=== PATIENT | female | born 1935 | race African-American/Black ===

== ENCOUNTER 2019-06-19 13:49 | Outpatient (CLI) | payer OTHER, SELFPAY ==
--- NOTE | 2019-06-19 | ECHO_ITS ---
Patient Info Name: Rosario Love Age: 83 years : 1935 Gender: Female Ht: 63 in Wt: 176 lbs BSA: 1.91 m2 HR: 63 bpm BP: 135 / 87 mmHg Heart Rhythm: Sinus Rhythm Technical Quality: Good Exam Date: 06/19/2019 2:22 PM Exam Location: [facility] Patient Status: Outpatient Admit Date: 06/19/2019 Staff Ordering Physician: Dominic Padilla MD Potato Sorter: Eric Jean RDCS, RT Attending Provider: Dominic Padilla MD Referring Physician: Randy ESQUIVEL; Exam Type: CA echo doppler color flow Study Info Indications R01.1 - Cardiac murmur, unspecified Complete two-dimensional, color flow and Doppler transthoracic echocardiogram is performed. Summary 1. Left ventricular systolic function is normal, estimated at 65-70%. 2. There is no increased left ventricular wall thickness. 3. The left ventricular diastolic function is grade I diastolic dysfunction. 4. Global longitudinal strain is normal at -19 %. 5. There is no aortic valve stenosis. 6. There is no aortic valve regurgitation. 7. There is trace mitral valve regurgitation. 8. The mitral valve annulus is mildly calcified. 9. There is trace tricuspid valve regurgitation. 10. Unable to estimate PA systolic pressure due to poor spectral resolution of tricuspid regurgitant jet velocity. 11. There is mild-moderate aortic atherosclerosis. Left Ventricle Left ventricular chamber dimension is normal. Left ventricular systolic function is normal, estimated at 65-70%. There is no increased left ventricular wall thickness. The left ventricular diastolic function is grade I diastolic dysfunction. Global longitudinal strain is normal at -19 %. Right Ventricle Right ventricular chamber dimension is normal. Right ventricular systolic function is normal. Left Atria Left atrial chamber dimension is normal. Right Atria Right atrial chamber dimension is normal. Aortic Valve The aortic valve is trileaflet. There is mild aortic valve sclerosis. There is no aortic valve stenosis. There is no aortic valve regurgitation. Pulmonic Valve The pulmonic valve is normal. There is no pulmonic regurgitation. Mitral Valve The mitral valve has normal leaflets. There is trace mitral valve regurgitation. The mitral valve annulus is mildly calcified. Tricuspid Valve The tricuspid valve leaflets are normal. There is trace tricuspid valve regurgitation. Unable to estimate PA systolic pressure due to poor spectral resolution of tricuspid regurgitant jet velocity. Pericardium/Pleural The pericardium appears normal. There is no pericardial effusion. Inferior Vena Cava Normal inferior vena cava with >50% collapse upon inspiration consistent with normal right atrial pressure, 5 mmHg. Aorta The aortic root size at the sinus of Valsalva is normal. There is mild-moderate aortic atherosclerosis. Left Ventricular Outflow Tract Name Value Normal LVOT 2D LVOT Diameter 1.9 cm LVOT Doppler LVOT Peak Gradient 5 mmHg LVOT Mean Gradient 3 mmHg LVOT VTI 27 cm
== END 2019-06-19 13:50 | disposition home or self-care (01) ==
LOC: ANHCARD 13:54
PROVIDERS: PCP Emergency Medicine; Visit Provider Emergency Medicine
DX: R01.1 Cardiac murmur, unspecified (principal); I70.0 Atherosclerosis of aorta
CPT/HCPCS: 93306

== ENCOUNTER 2021-10-06 16:53 | Inpatient (IN) | payer MEDICARE, OTHER, SELFPAY ==
[2021-10-06] VITALS (9 sets, daily range): BP systolic 148–172; BP diastolic 77–80; PULSE 81; RESP 16; TEMP 37.1; O2SAT 97–100
--- NOTE | ~2021-10-06 | XR_ITS ---
EXAM: XR abdomen obstructive series DATE: 10/09/2021 07:57 HISTORY: F/u on p SBO ( . COMPARISON: Upper GI 10/08/2021, x-ray abdomen 10/08/2021, CT abdomen and pelvis 10/06/2021. FINDINGS: Senescent changes in the lungs. Elevation of the left hemidiaphragm. Hiatal hernia. Retain ed contrast within the colon. Single loop of dilated, air-filled small bowel. Relative paucity of sma ll bowel gas. Faint residual contrast within a few mildly dilated small bowel loops. IMPRESSION: Limited evaluation of the small bowel, with some residual dilation present that may refle ct ileus or obstruction. Reviewed, dictated and finalized at location K. IMPRESSION: Limited evaluation of the small bowel, with some residual dilation present that may reflect ileus or obstruction.
--- NOTE | ~2021-10-06 | XR_ITS ---
EXAMINATION: XR UGI water soluble w sbs DATE: 10/08/2021 15:00 INDICATION: Small bowel obstruction. Hiatal hernia. TECHNIQUE: The patient drank water-soluble contrast. Fluoroscopy of the esophagus, stomach, and small bowel was performed. Fluoroscopy exposure time was 0.3 minutes. Radiographs of the abdomen were obta ined. The total number of images was 233. COMPARISON: CT abdomen and pelvis 10/06/2021 FINDINGS: UPPER GASTROINTESTINAL SERIES: There is decreased primary and secondary esophageal peristalsis. There is a large sliding hiatal rex ia. SMALL BOWEL SERIES: There are multiple dilated loops of small bowel. Transit time to the colon was 4 hours. The colon is decompressed. IMPRESSION: 1. Large sliding hiatal hernia. 2. Moderate esophageal dysmotility. 3. Partial small bowel obstruction. Reviewed, dictated and finalized at location A.
--- NOTE | ~2021-10-06 | XR_ITS ---
XR abdomen/kub 1V 10/08/2021 06:04 Indication: Small bowel obstruction Procedure: KUB Comparison: 10/07 and 10/06/2021 Findings: Large hiatal hernia. Nonspecific bowel gas pattern. No focal dilated small bowel identified , possibly fluid-filled. There is gas in the colon. Advanced degenerative changes of the lumbar spine and hips. No acute osseous abnormality. Impression: 1: Nonspecific bowel gas pattern. 2: Large hiatal hernia. Reviewed, dictated and finalized at location A. Impression: 1: Nonspecific bowel gas pattern. 2: Large hiatal hernia.
--- NOTE | ~2021-10-06 | XR_ITS ---
EXAMINATION: XR abdomen obstructive series DATE: 10/07/2021 14:41 INDICATION: Small bowel obstruction TECHNIQUE: Upright and supine views of the abdomen were obtained. COMPARISON: 10/06/2021 FINDINGS: There is a massive hiatal hernia. The nasogastric tube has been removed. The mid abdomen is relatively gasless. Dilated small bowel loops on yesterday's CT were fluid-filled and contained very little gas. 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 The visualized lung ba ses are clear. IMPRESSION: 1. Relatively gasless mid abdomen which could reflect persistent small bowel obstruction given the ap pearance of the dilated bowel loops on the comparison CT. Reviewed, dictated and finalized at location F. IMPRESSION: 1. Relatively gasless mid abdomen which could reflect persistent small bowel ob struction given the appearance of the dilated bowel loops on the comparison CT.
--- NOTE | ~2021-10-06 | XR_ITS ---
XR fl guid NG/feed tube insert 10/07/2021 15:36 Indication: Attempted NG tube placement Procedure: Single fluoroscopic image Comparison: KUB dated 10/06/2021. Findings: Multiple attempts to place NG tube were made without success. Patient is extremely combativ e and refused examination. Impression: 1: Unsuccessful attempts to place NG tube. Patient very combative. Reviewed, dictated and finalized at location A. Impression: 1: Unsuccessful attempts to place NG tube. Patient very combative.
--- NOTE | ~2021-10-06 | CT_ITS ---
EXAMINATION: CT abdomen pelvis wo con DATE: 10/06/2021 20:46 INDICATION: Left upper quadrant pain TECHNIQUE: Computed tomography (CT) of the abdomen and pelvis was performed without intravenous contr ast. The dose-length product (DLP) was 521.46 mGy-cm. Automated exposure control and iterative recons truction technique were employed. COMPARISON: None FINDINGS: There is a massive hiatal hernia containing the stomach and portions of the collapsed trans verse colon. There is passive atelectasis in the visualized left lower lobe. There are multiple dilat ed, fluid-filled loops of small bowel with an apparent abrupt transition point in the midline at the pelvic inlet beyond which the small bowel and large bowel are decompressed. No free intraperitoneal g as is identified. There is a small volume of ascites. A small volume of ascites is also seen in an um bilical hernia. The liver, spleen, pancreas, adrenal glands, and kidneys are normal. The gallbladder is not definitely identified, abscess versus decompressed. No pathologically enlarged abdominal or pe lvic lymph nodes are identified. There is calcified atherosclerosis of the aorta and many of the othe r arteries. There is moderate lower thoracic and lumbar spondylosis. IMPRESSION: 1. Small bowel obstruction with apparent transition point in the midline at the pelvic inlet. Surgica l evaluation is recommended. 2. Massive hiatal hernia containing the stomach and portions of the transverse colon. Reviewed, dictated and finalized at location F. IMPRESSION: 1. Small bowel obstruction with apparent transition point in the midline at the pelvic inlet. Surgical evaluation is recommended. 2. Massive hiatal hernia containing the stomach and portions of the transverse colon.
--- NOTE | ~2021-10-06 | XR_ITS ---
EXAMINATION: XR abdomen NG/feed tube insert INDICATION: Nasogastric tube placement TECHNIQUE: Portable AP KUB-NG at 2255 hours COMPARISON: CT from today FINDINGS: There is a massive hiatal hernia. The tip of the nasogastric tube is seen near the gastroes ophageal junction. The proximal side port is approximately 7 cm above the gastroesophageal junction. The visualized lung bases are clear. IMPRESSION: 1. Massive hiatal hernia with nasogastric tube tip ending at the gastroesophageal junction. Recommend advancing 8 cm. Reviewed, dictated and finalized at location F. IMPRESSION: 1. Massive hiatal hernia with nasogastric tube tip ending at the gastroesophage al junction. Recommend advancing 8 cm.
[2021-10-06 20:18] LABS: Basophils Percent Auto 0.1 % (0.2-1.2); Hematocrit 39.9 % (37.0-47.0); Hemoglobin 13.5 g/dL (12.0-15.0); Immature Granulocyte Absolute 0.04 K/mm3 (0.00-0.031); Immature Granulocyte Percent A 0.3 % (0-0.5); Lymphocytes Absolute Auto 1.47 K/mm3 (0.9-3.2); Lymphocytes Percent Auto 12.5 % (18.3-44.2); Mean Corpuscular HGB Conc 33.8 g/dl (32-36); Mean Corpuscular Hemoglobin 28.9 pg (26-34); Mean Corpuscular Volume 85.4 fl (80-100); Mean Platelet Volume 8.9 fl (7.4-10.4); Monocytes Absolute Auto 0.8 K/mm3 (0.1-0.6); Monocytes Percent Auto 6.7 % (2.6-8.5); Neutrophils Absolute Auto 9.5 K/mm3 (1.3-6.7); Neutrophils Percent Auto 80.4 % (45.5-73.1); Platelet Count Result 293 k/mm3 (150-375); Red Blood Count 4.67 M/mm3 (4.2-5.4); Red Cell Distribution Width 13.6 % (11.5-14.5); White Blood Count 11.8 K/mm3 (4.5-10.0)
[2021-10-06 20:25] LABS: Alanine Aminotransferase 12 U/L (6-35); Albumin Level 4.5 g/dL (3.5-5.1); Alkaline Phosphatase 63 U/L (38-126); Anion Gap 7 mmol/L (8-16); Aspartate Amino Transferase 36 U/L (14-36); Bilirubin,Total 0.9 mg/dL (0.2-1.3); Blood Urea Nitrogen 27 mg/dL (7-17); Calcium 10.6 mg/dL (8.4-10.2); Carbon Dioxide 30 mmol/L (22-30); Chloride 96 mmol/L (98-107); Estimated CRCL calculation 27 ml/min; Estimated Glomerular Filt Rate 43; Glucose 108 mg/dL (65-110); Lipase 48 U/L (23-300); Potassium 4.3 mmol/L (3.4-5.0); Sodium 133 mmol/L (137-145)
--- NOTE | 2021-10-06 20:42 | ED.ABDPAIN ---
HPI - Abdominal Pain General Chief Complaint: Abdominal Pain Stated Complaint: abdominal pain Time Seen by Provider: 10/06/21 19:56 History of Present Illness HPI narrative: Patient is an 86-year-old female who presents to the ER with abdominal pain. Ongoing for 2 days. Sharp in the left upper quadrant. No radiation. Occasionally radiates into the chest and causes lightheadedness. Patient with mild nausea, had 2 episodes of vomiting yesterday. Daughter believes patient has been constipated for couple days. No diarrhea. Patient unsure if she is passing gas. No history of diverticulitis. She has no urinary frequency urgency or dysuria. Known history of CKD. Related Data Home Medications Medication Instructions Recorded Confirmed Aspirin Childrens 04/06/19 ascorbic acid (vitamin C) 1,000 mg 1 g PO DAILY 04/06/19 tablet (Vitamin C) atorvastatin 20 mg tablet 20 mg PO DAILY 04/06/19 hydrochlorothiazide 25 mg tablet 25 mg PO DAILY 04/06/19 oxybutynin chloride 10 mg 10 mg PO DAILY 04/06/19 tablet,extended release 24 hr potassium chloride 10 mEq 10 meq PO DAILY 04/06/19 tablet,extended release (Klor-Con) Allergies Allergy/AdvReac Type Severity Reaction Status Date / Time No Known Allergies Allergy Verified 03/02/21 11:45 Review of Systems Review of Systems: All systems reviewed & are unremarkable except as noted in HPI and below Constitutional: Constitutional: Denies chills and Denies fever(s) ENT: Denies nasal congestion and Denies sore throat Cardiovascular: Cardiovascular: Reports chest pain, Denies rapid heart rate and Denies radiating jaw, neck or arm pain Respiratory: Respiratory: Denies cough and Denies dyspnea Gastrointestinal: Gastrointestinal: Reports abdominal pain, Denies constipation, Denies diarrhea, Denies nausea and Denies vomiting Genitourinary: Genitourinary: Denies nocturia, Denies dysuria and Denies flank pain PMF Past Medical History Medical History (Updated 10/06/21 @ 23:32 by Rm Lezama MD) High cholesterol HTN (hypertension) Surgical History Surgical History (Updated 10/06/21 @ 23:32 by Rm Lezama MD) H/O section History of knee replacement, total left Social History Social History (Updated 03/02/21 @ 11:46 by Serena Terrell [facility]) Smoking status: Former smoker Alcohol intake: current Substance use: never Gender identity (if verbalized by the patient): Female Exam Narrative: GENERAL: Uncomfortable-appearing, well-nourished, and in no acute distress. HEAD: Normocephalic, atraumatic. EYES: PERRL and EOMI. ENT: Mucous membranes moist. CHEST: Clear to auscultation. No respiratory distress. HEART: Regular rate and rhythm. Normal peripheral pulses. ABDOMEN: Soft, tender palpation left upper quadrant with guarding, mildly distended. EXTREMITIES: Normal range of motion. No edema. SKIN: Warm, dry, no rash. NEURO: Alert and oriented x3. PSYCH: Normal mood and affect. Course Course Emergency Course: Discussed case with Dr. Presley. Recommends NG admit to hospitalist service. Accepted by Dr. Arthur. Vital Signs Vital signs: Vital Signs Temperature 98.7 F 10/06/21 17:38 Pulse Rate 81 10/06/21 17:38 Respiratory Rate 16 10/06/21 17:38 Blood Pressure 172/77 H 10/06/21 17:38 Pulse Oximetry 100 10/06/21 17:38 Oxygen Delivery Room Air 10/06/21 17:38 Temperature 98.7 F 10/06/21 17:38 Pulse Rate 81 10/06/21 17:38 Respiratory Rate 16 10/06/21 17:38 Blood Pressure 172/77 H 10/06/21 17:38 Pulse Oximetry 100 10/06/21 17:38 Oxygen Delivery Room Air 10/06/21 17:38 MDM - Abdominal Pain Lab Data Result diagrams: 10/06/21 20:03 10/06/21 20:03 Labs: Lab Results 10/06/21 10/06/21 10/06/21 Range/Units 20:03 20:03 22:27 WBC 11.8 H (4.5-10.0) K/mm3 RBC 4.67 (4.2-5.4) M/mm3 Hgb 13.5 (12.0-15.0) g/dL Hct 39.9 (37.0-47.0) %
[2021-10-06] MEDS: MORPHINE SULFATE (*CRX) 4 MG/ML INJ IV PUSH (20:51)
[2021-10-06] MEDS: SODIUM CHLORIDE 0.9% IV 1,000 ML 999 ML IV CONT (20:56)
[2021-10-06 23:03] LABS: Appearance Urine Clear (Clear); Bilirubin Urine Negative (Negative); Color Urine Yellow (Yellow); Glucose Urine UA Negative (Negative); Ketones Urine Negative (Negative); Leukocyte Esterase Ur Negative LEU/UL (Negative); Nitrate Urine Negative (Negative); Protein Urine Negative (Negative); Urobilinogen Urine 0.2 mg/dL (<2.0); pH Urine 6.5 (5.0-9.0)
[2021-10-06 23:14] LABS: RBC Urine 0-2 /hpf (0-2); Squamous Epithelial Cell Urine Many /hpf (Few); WBC Urine 0-3 /hpf
[2021-10-06 23:15] LABS: Add Urine Microscopic? YES; Blood Urine Trace (Negative)
[2021-10-06 23:22] LABS: SARS-CoV-2 RNA PCR Negative
[2021-10-07] VITALS (8 sets, daily range): BP systolic 119–162; BP diastolic 60–75; PULSE 81–88; RESP 17–18; TEMP 36.2–37.5; O2SAT 92–100; BMI 26.8
[2021-10-07] MEDS: LORazepam INJ (*CRX) 2 MG/ML VIAL 0.5 MG IV PUSH (00:29)
--- NOTE | 2021-10-07 01:14 | PC.NURSE ---
NG tube inserted then immediately pulled out by patient. NG tube attempts 3 more times by this RN with no success. NG tube attempt 3 other times 1 times by other RN then 2 other times by the compressor house operator.
[2021-10-07] MEDS: SODIUM CHLORIDE 0.9% IV 1,000 ML 125 ML IV CONT ×2 (02:02→10:02)
--- NOTE | 2021-10-07 04:43 | PC.NURSE ---
This patient, Rosario Love, was admitted to 3 Med Surg Room 317-02. Patient/family oriented to hospital policies and general routines including ID bracelet, bed and alarms, visiting hours, pain management, procedures, bathroom and other care routines, personal items, smoking policy, room service/diet, and visiting hours. Information on how to activate the Rapid Response Team has been discussed. Patient/Family are encouraged to report perceived risks to care and to ask questions if they do not understand what they are told or what they should do.
[2021-10-07 08:30] LABS: Eosinophils Percent Auto 0.1 % (0-4.4); Hematocrit 38.2 % (37.0-47.0); Hemoglobin 12.8 g/dL (12.0-15.0); Immature Granulocyte Absolute 0.03 K/mm3 (0.00-0.031); Immature Granulocyte Percent A 0.3 % (0-0.5); Lymphocytes Absolute Auto 1.29 K/mm3 (0.9-3.2); Lymphocytes Percent Auto 13.1 % (18.3-44.2); Mean Corpuscular HGB Conc 33.5 g/dl (32-36); Mean Corpuscular Hemoglobin 28.6 pg (26-34); Mean Corpuscular Volume 85.5 fl (80-100); Monocytes Absolute Auto 1.2 K/mm3 (0.1-0.6); Monocytes Percent Auto 11.6 % (2.6-8.5); Neutrophils Absolute Auto 7.4 K/mm3 (1.3-6.7); Neutrophils Percent Auto 74.9 % (45.5-73.1); Platelet Count Result 259 k/mm3 (150-375); Red Blood Count 4.47 M/mm3 (4.2-5.4); Red Cell Distribution Width 13.6 % (11.5-14.5); White Blood Count 9.9 K/mm3 (4.5-10.0)
[2021-10-07 08:46] LABS: Alanine Aminotransferase 12 U/L (6-35); Albumin Level 3.6 g/dL (3.5-5.1); Alkaline Phosphatase 39 U/L (38-126); Anion Gap 7 mmol/L (8-16); Aspartate Amino Transferase 37 U/L (14-36); Bilirubin,Total 1.1 mg/dL (0.2-1.3); Blood Urea Nitrogen 28 mg/dL (7-17); Calcium 9.2 mg/dL (8.4-10.2); Carbon Dioxide 30 mmol/L (22-30); Chloride 97 mmol/L (98-107); Estimated CRCL calculation 26 ml/min; Estimated Glomerular Filt Rate 52; Glucose 89 mg/dL (65-110); Lipase 57 U/L (23-300); Potassium 4.2 mmol/L (3.4-5.0); Sodium 134 mmol/L (137-145)
--- NOTE | 2021-10-07 08:58 | PM.IMHP ---
H&P: HPI History of Present Illness Date/Time: 10/07/21 08:58 Chief Complaint: abdominal pain Narrative: Pt is an 86 yo female w/ hx of HTN and HLD who presented to the ED last night for evaluation of abdominal pain x 2 days. Pt c/o intermittent sharp LUQ abdominal pain x 2 days with associated nausea, vomiting w/ 2 episodes of emesis, and constipation for a few days. She does not think she is passing gas either. Reports decreased appetite with little to no PO intake yesterday. No fevers, chills, bodyaches. No urinary symptoms. She does state that she got light headed a couple of times yesterday when the pain got intense. She denies cp/sob. No vision changes, paraesthesias, focal weakness. ER performed CT abd/pelv which showed SBO and massive hiatal hernia. General surgery was consulted and patient was admitted to inpatient service for further evaluation and treatment with expected stay greater than 2 midnights. Review of Systems Review of Systems: General: Denies fevers, chills Eyes: Denies vision changes ENT: Denies nasal congestion or sore throat Respiratory: Denies cough or shortness of breath Cardiovascular: Denies chest pain or lower extremity edema Gastrointestinal: + abdominal pain and vomiting Genitourinary: Denies dysuria Musculoskeletal: Denies back pain Neurological: Denies headache or motor weakness Integumentary: Denies rash PMFSH Past Medical History Medical History (Updated 10/07/21 @ 09:24 by Dolores Munoz PA-C) High cholesterol HTN (hypertension) Surgical History Surgical History H/O section History of knee replacement, total left Social History Social History Smoking status: Former smoker Tobacco type: cigarettes Alcohol intake: never Substance use: never Substance use type: former substance user Gender identity (if verbalized by the patient): Female Spiritual care concerns: No Meds Home Medications and Allergies Home Medications Medication Instructions Recorded Confirmed Type amlodipine 10 mg tablet 10 mg PO DAILY #30 tabs 04/06/19 Rx atorvastatin 20 mg tablet 20 mg PO DAILY 04/06/19 10/07/21 History hydrochlorothiazide 25 mg tablet 25 mg PO DAILY 04/06/19 10/07/21 History oxybutynin chloride 10 mg 10 mg PO DAILY 04/06/19 10/07/21 History tablet,extended release 24 hr potassium chloride 20 mEq 20 tablet PO DAILY 10/07/21 10/07/21 History tablet,extended release(part/cryst) (Leslie Hernandez) Allergies Allergy/AdvReac Type Severity Reaction Status Date / Time No Known Allergies Allergy Verified 03/02/21 11:45 Vital Signs Vital Signs - 24 hr 10/06/21 17:38 10/06/21 21:04 10/06/21 21:15 Temperature 98.7 F Pulse Rate 81 Respiratory Rate 16 Blood Pressure 172/77 H Pulse Oximetry 100 97 99 Oxygen Delivery Room Air 10/06/21 21:30 10/06/21 21:32 10/06/21 21:45 Temperature Pulse Rate Respiratory Rate Blood Pressure 148/79 H Pulse Oximetry 99 99 99 Oxygen Delivery 10/06/21 22:00 10/06/21 22:02 10/06/21 23:32 Temperature Pulse Rate Respiratory Rate Blood Pressure 151/80 H 157/78 H Pulse Oximetry 100 100 Oxygen Delivery 10/07/21 01:17 10/07/21 01:54 10/07/21 01:50 Temperature 98.1 F Pulse Rate 82 82 86 Respiratory Rate 18 18 17 Blood Pressure 162/75 H 148/72 H Pulse Oximetry 98 98 95 Oxygen Delivery 10/07/21 05:38 10/07/21 07:57 Temperature 98.1 F 97.2 F L Pulse Rate 87 84 Respiratory Rate 17 17 Blood Pressure 146/70 H 139/69 Pulse Oximetry 92 100 Oxygen Delivery Exam Narrative: General: No acute distress, non toxic appearing, elderly Eyes: PERRL, no scleral icterus HEENT: NCAT, external ears normal, MMM Respiratory: No respiratory distress, Lungs CTA bilaterally, no wheezing Cardiovascular: RRR, no murmur Abdominal:
--- NOTE | 2021-10-07 09:34 | PCCCNOTE ---
On 10/07/21, the student, [Adrienne Bazan], provided care and completed [facility] documentation on this patient. I have reviewed the student's documentation and agree with the findings.
--- NOTE | 2021-10-07 10:20 | PC.NURSE ---
pt remains confused unable to re-insert Ng tube, pt unable to follow commands and pulls away and resistive to procedure. Informed Md Presley, requesting Ng be placed under fluoroscope.
--- NOTE | 2021-10-07 10:44 | PM.CNGS ---
Assessment and Plan Assessment and plan (1) Small bowel obstruction: Code(s): K56.609 - Unspecified intestinal obstruction, unspecified as to partial versus complete obstruction Status: Acute Assessment and Plan: CT scan reviewed and discussed with the patient. There is evidence of a small bowel obstruction. NG tube placement was attempted and plain films show this was at the GE junction, but she no longer has an NG tube in place. Will order for NG tube placement in Radiology under fluoroscopy. Obstructive series also ordered for today. Will initially treat this with conservative measures with NG tube decompression, IV fluids, bowel rest, and IV analgesics as needed. Continue to monitor with serial abdominal exams and imaging. (2) Large hiatal hernia: Code(s): K44.9 - Diaphragmatic hernia without obstruction or gangrene Status: Acute Assessment and Plan: Large hiatal hernia noted on CT with her stomach and a portion of the colon in the chest. This is not related to the bowel obstruction but does make appropriate placement of the NG more difficult. See plan above. (3) [place] (acute kidney injury): Code(s): N17.9 - Acute kidney failure, unspecified Status: Acute Assessment and Plan: Seems to be improving with IV fluids. Creatinine 1.4 on admission and down to 1.2. Monitor labs and continue IV fluids. (4) HTN (hypertension): Code(s): I10 - Essential (primary) hypertension Status: Acute (5) High cholesterol: Code(s): E78.00 - Pure hypercholesterolemia, unspecified Status: Acute Plan I have discussed the patient's case and plan of care with Dr. Presley. Thank you for allowing us to see the patient in consultation and we will continue to follow along with you. History of Present Illness Consult details Consult date: 10/07/21 Reason for consult: other (Small-bowel obstruction) Requesting physician: Rm Lezama MD Narrative: This is an 86-year-old female with a history of hypertension and hyperlipidemia, who presented to the emergency department with complaints of abdominal pain and vomiting. She is a poor historian and is unable to provide the majority of her history. With her permission, I attempted to call her daughter to confirm history and ask questions, but she did not answer her phone. Therefore, her history is obtained by review of the electronic medical record and also some from the patient of what she was able to answer. She reports noticing left-sided abdominal pain over the last 2 days with associated nausea and vomiting. She had multiple episodes of vomiting at home and apparently felt constipated. She has had little oral intake due to her symptoms over the past few days. She denies ever having a pain like this in the past. She denies any history of a bowel obstruction. She also had lightheadedness prior to admission. Due to the unrelenting pain, she presented to the ER for evaluation. CT scan of the abdomen and pelvis showed a small-bowel obstruction and a massive hiatal hernia with stomach and colon in the chest. She was admitted and made NPO. Our service has been consulted for the small-bowel obstruction. There was an attempt at NG tube placement overnight with plain film showed the tip of the NG at the GE junction. This morning, she was found without an NG in place. It is unclear if she removed the NG tube herself. The patient reports her symptoms have resolved. She denies any nausea or abdominal pain at this time. She has not had any vomiting since admission. She denies flatus and cannot recall her last bowel movement. In her chart, there is mention a previous delivery, but the patient denies having a in the past or any other abdominal surgeries that she knows of. She denies being aware of her hiatal hernia. No other complaints at this time. Review of Systems Review of Systems: All systems reviewed &
--- NOTE | 2021-10-07 12:42 | PC.NURSE ---
Eli Rosales RN called for IV restart
--- NOTE | 2021-10-07 13:21 | PC.NURSE ---
Daughter states pt has hx of mitral valve prolapse.
--- NOTE | 2021-10-07 13:25 | PC.NURSE ---
This nurse explain pt current status, daughter requesting to talk with Lolis Martinez about pt condition. Called Lolis Martinez's general surgery office, awaiting call back, informed Frances Munoz that daughter is requesting to talk to someone about pt condition. Frances will try and stop by later this afternoon.
--- NOTE | 2021-10-07 16:55 | PC.NURSE ---
Admitted to place NG under fluroscopy, pt refusing resistive to procedure, shaking and jerking head around from tube, pulling tube away with hands, yelling and screaming for procedure to stop. Unable to place NG. GI consults MD Herrera to admit NG placement tomorrow.
[2021-10-07] MEDS: SODIUM CHLORIDE 0.9% IV 1,000 ML 80 ML IV CONT (18:20)
[2021-10-08 06:00] VITALS: BP 107/50; PULSE 74; RESP 18; TEMP 37.2; O2SAT 99
[2021-10-08 06:49] LABS: Albumin Level 2.7 g/dL (3.5-5.1); Alkaline Phosphatase 33 U/L (38-126); Anion Gap 4 mmol/L (8-16); Aspartate Amino Transferase 26 U/L (14-36); Bilirubin,Total 0.8 mg/dL (0.2-1.3); Blood Urea Nitrogen 25 mg/dL (7-17); Calcium 8.4 mg/dL (8.4-10.2); Carbon Dioxide 20 mmol/L (22-30); Chloride 108 mmol/L (98-107); Estimated CRCL calculation 26 ml/min; Estimated Glomerular Filt Rate 52; Glucose 71 mg/dL (65-110); Potassium 3.5 mmol/L (3.4-5.0); Sodium 132 mmol/L (137-145)
[2021-10-08 07:09] LABS: Alanine Aminotransferase < 6 U/L (6-35)
[2021-10-08 07:55] LABS: Basophils Percent Auto 0.1 % (0.2-1.2); Eosinophils Percent Auto 0.6 % (0-4.4); Hematocrit 31.4 % (37.0-47.0); Hemoglobin 10.3 g/dL (12.0-15.0); Immature Granulocyte Absolute 0.02 K/mm3 (0.00-0.031); Immature Granulocyte Percent A 0.3 % (0-0.5); Lymphocytes Absolute Auto 1.58 K/mm3 (0.9-3.2); Lymphocytes Percent Auto 23.6 % (18.3-44.2); Mean Corpuscular HGB Conc 32.8 g/dl (32-36); Mean Corpuscular Hemoglobin 28.9 pg (26-34); Monocytes Absolute Auto 0.8 K/mm3 (0.1-0.6); Monocytes Percent Auto 12.6 % (2.6-8.5); Neutrophils Absolute Auto 4.2 K/mm3 (1.3-6.7); Neutrophils Percent Auto 62.8 % (45.5-73.1); Platelet Count Result 237 k/mm3 (150-375); Red Blood Count 3.57 M/mm3 (4.2-5.4); Red Cell Distribution Width 13.5 % (11.5-14.5); White Blood Count 6.7 K/mm3 (4.5-10.0)
[2021-10-08 08:00] VITALS: PULSE 74; RESP 18; O2SAT 99
--- NOTE | 2021-10-08 08:19 | WPDGICN ---
Assessment and Plan Assessment and plan (1) Large hiatal hernia: Code(s): K44.9 - Diaphragmatic hernia without obstruction or gangrene Status: Acute Assessment and Plan: On review of x-rays patient has a very large hiatal hernia with apparent intrathoracic stomach hiatal hernia also includes portion of the transverse colon. This apparently limited passage of NG tube. I suspect she has intermittent volvulus perhaps an intermittent obstruction in this area. I would suggest initial evaluation with Gastrografin upper GI. I would defer placement of NG tube at present. She likely would benefit from repair of this large hiatal hernia. (2) Abnormal CT scan: Code(s): R93.89 - Abnormal findings on diagnostic imaging of other specified body structures Status: Acute Assessment and Plan: CT scan at admission in addition to large hiatal hernia suggested possible small bowel obstruction. I suspect this is also related to her hiatal hernia. Currently having bowel sounds. She had a bowel movement. Her abdomen is soft. I would defer NG tube placement which will be difficult with her hiatal hernia proceed with small-bowel series today. GI Consult Note Consult date/time: 10/08/21 08:19 Reason for consult: placement of NG tube and abnormal CT scan. HPI: Rosario Love is a 86 year old female Presented to the ER yesterday with complaints of nausea vomiting abdominal pain and CT scan revealed a very large hiatal hernia and concern over small-bowel obstruction. NG tube was unable to be placed. On review of records it appears to be because of her intrathoracic stomach. Patient is comfortable this morning. Has had 1 bowel movements it is admission to the hospital. She states symptoms began relatively suddenly yesterday. Her family history is noncontributory. Review of Systems Review of Systems: Review of systems noncontributory. [facility] Past Medical History Medical History High cholesterol HTN (hypertension) Surgical History Surgical History H/O section History of knee replacement, total left Social History Social History Social History: Lives with her daughter, Tamara Smoking status: Former smoker Tobacco type: cigarettes Alcohol intake: never Substance use: never Substance use type: former substance user Gender identity (if verbalized by the patient): Female Spiritual care concerns: No Meds Home Medications and Allergies Home Medications Medication Instructions Recorded Confirmed Type amlodipine 10 mg tablet 10 mg PO DAILY #30 tabs 04/06/19 Rx atorvastatin 20 mg tablet 20 mg PO DAILY 04/06/19 10/07/21 History hydrochlorothiazide 25 mg tablet 25 mg PO DAILY 04/06/19 10/07/21 History oxybutynin chloride 10 mg 10 mg PO DAILY 04/06/19 10/07/21 History tablet,extended release 24 hr potassium chloride 20 mEq 20 tablet PO DAILY 10/07/21 10/07/21 History tablet,extended release(part/cryst) (Klor-Con M) Allergies Allergy/AdvReac Type Severity Reaction Status Date / Time No Known Allergies Allergy Verified 03/02/21 11:45 Vital Signs Vital Signs - 24 hr 10/07/21 15:52 10/07/21 20:00 10/07/21 21:50 Temperature 97.6 F 99.5 F Pulse Rate 88 81 Respiratory Rate 17 18 Blood Pressure 130/61 119/60 Pulse Oximetry 96 99 Oxygen Delivery Room Air 10/08/21 06:00 Temperature 99.0 F Pulse Rate 74 Respiratory Rate 18 Blood Pressure 107/50 L Pulse Oximetry 99 Oxygen Delivery Exam Narrative: Physical exam reveals patient be alert. Vital signs stable. HEENT exam reveals no icterus. Lungs are clear to auscultation and to percussion. Heart is without murmur or extra sounds. Abdomen bowel sounds are present soft no localized tenderness. Results L
--- NOTE | 2021-10-08 09:34 | PM.IMPN ---
Progress Note: A&P Assessment and Plan (1) Small bowel obstruction: Code(s): K56.609 - Unspecified intestinal obstruction, unspecified as to partial versus complete obstruction Status: Acute Assessment and Plan: -noted on CT abd/pelv -pt NPO w/ IVF, antiemetics, and pain control -NG attempted but unable to place likely secondary to large hiatal hernia -GI and general surgery consulted, appreciate recommendations -pt has bowel sounds today, did have a BM (2) Large hiatal hernia: Code(s): K44.9 - Diaphragmatic hernia without obstruction or gangrene Status: Acute Assessment and Plan: -noted on CT abd/pelv -seen by GI who suspects pt has intermittent volvulus and perhaps intermittent obstruction in this area. He recommends evaluation with gastrografin upper GI and defer NG placement at this time. He feels pt would benefit from repair of hernia. -will await further recommendations from GI and general surgery. (3) AUSTIN (acute kidney injury): Code(s): N17.9 - Acute kidney failure, unspecified Status: Acute Assessment and Plan: -baseline creat appears to be 1.1-1.3, pt unclear if she has hx of CKD or not, per daughter patient has been told she has it but then another pcp told her that she did not -1.4 on arrival, down to 1.2 w/ IVF -monitor daily BMP (4) HTN (hypertension): Code(s): I10 - Essential (primary) hypertension Status: Acute Assessment and Plan: -mildly elevated on arrival but has stablized -will restart BP meds when no longer NPO -consider hydralazine prn w/ parameters (5) High cholesterol: Code(s): E78.00 - Pure hypercholesterolemia, unspecified Status: Acute Assessment and Plan: -continue statin when no longer NPO Subjective Date/time seen: 10/08/21 09:34 Interval history: 86 yo female w/ hx of HTN and HLD admitted for SBO. Today patient has no abdominal pain. No N/V. She had a bowel movement. No cp/sob. No other complaints. Unable to place NG tube yesterday. Review of Systems Review of Systems: All systems reviewed & are unremarkable except as noted in HPI and below Exam Narrative: General: No acute distress, non toxic appearing, elderly Eyes: PERRL, no scleral icterus HEENT: NCAT, external ears normal, MMM Respiratory: No respiratory distress, Lungs CTA bilaterally, no wheezing Cardiovascular: RRR, no murmur Abdominal: Soft, non tender, non distended, no rebound or guarding, bowel sounds present Musculoskeletal: Moves all 4 extremities, no edema Neurological: A/Ox3, speech clear, no facial asymmetry Skin: Warm, dry, no rashes Psychiatric: Normal affect, normal mood Objective Data Vital Signs Vital Signs: Vital Signs - 24 hr 10/07/21 15:52 10/07/21 20:00 10/07/21 21:50 Temperature 97.6 F 99.5 F Pulse Rate 88 81 Respiratory Rate 17 18 Blood Pressure 130/61 119/60 Pulse Oximetry 96 99 Oxygen Delivery Room Air 10/08/21 06:00 Temperature 99.0 F Pulse Rate 74 Respiratory Rate 18 Blood Pressure 107/50 L Pulse Oximetry 99 Oxygen Delivery Intake/Output Intake/Output: Intake & Output 10/05/21 10/06/21 10/07/21 10/08/21 23:59 23:59 23:59 23:59 Intake Total 1000 2000 0 Output Total 550 250 Balance 1000 1450 -250 Meds/Results Medications: Active Medications Generic Name Dose Route Start Last Admin Trade Name Freq PRN Reason Stop Dose Admin Enoxaparin Sodium 30 mg 10/07/21 21:00 10/07/21 20:48 Enoxaparin 30 Mg/0.3 Ml Syringe SUB-Q Not Given Q12HR GRACE Sodium Chloride 1,000 mls @ 80 mls/hr 10/06/21 23:35 10/07/21 18:20 Normal Saline Iv IV CONT 80 mls/hr .[id number] GRACE Administration Morphine Sulfate 4 mg 10/06/21 23:33 Morphine Sulfate (*Crx) 4 Mg/Ml Inj IV PUSH Q2H PRN Pain Rated 7-10 Morphine Sulfate 2 mg 10/07/21 08:58 Morphine Sulfate (*Crx) 2 Mg/Ml Inj IV PUSH Q2H
[2021-10-08] MEDS: SODIUM CHLORIDE 0.9% IV 1,000 ML 80 ML IV CONT (09:43)
--- NOTE | 2021-10-08 11:10 | PM.PNGS ---
Progress Note: A&P Assessment and Plan (1) Small bowel obstruction: Code(s): K56.609 - Unspecified intestinal obstruction, unspecified as to partial versus complete obstruction Status: Acute Assessment and Plan: Unable to get NG tube placed even under fluoroscopic guidance. Patient very resistant to placement. Not having pain but does have tenderness of the abdomen. Dr. Herrera consulted for possible endoscopic NG tube placement. Upper GI small-bowel follow-through with water-soluble contrast has been ordered to see if small-bowel obstruction persists. Continue NPO and IV fluids for now. (2) Large hiatal hernia: Code(s): K44.9 - Diaphragmatic hernia without obstruction or gangrene Status: Chronic Assessment and Plan: Makes NG tube placement more difficult. Subjective Subjective Date/Time Seen: 10/08/21 11:10 Patient reports: no new complaints, pain is less, no bowel movement and afebrile Review of Systems Review of Systems: All systems reviewed & are unremarkable except as noted in HPI and below Constitutional: Constitutional: Reports as per HPI Cardiovascular: Cardiovascular: Denies chest pain and Denies dyspnea Respiratory: Respiratory: Denies cough and Denies dyspnea Gastrointestinal: Gastrointestinal: Reports as per HPI, Denies abdominal pain, Denies GI cramping, Denies heartburn, Denies nausea and Denies vomiting Exam Const: General: comfortable and no acute distress; No confusion Orientation/consciousness: patient oriented x3 and No confusion GI: Inspection: normal to inspection, non-distended and no visible herniation GI Palp: Yes Soft to palpation, Yes Tenderness to palpation present (GI) (Mid abdominal tenderness), No Guarding due to palpation present (GI) and No Rebound tenderness present Auscultation: absent bowel sounds Neuro: General: patient oriented x3 and no focal motor deficits Extrem: General: no calf tenderness and no edema Objective Data Vital Signs Vital Signs: Vital Signs - 24 hr 10/07/21 15:52 10/07/21 20:00 10/07/21 21:50 Temperature 36.4 C 37.5 C Pulse Rate 88 81 Respiratory Rate 17 18 Blood Pressure 130/61 119/60 Pulse Oximetry 96 99 Oxygen Delivery Room Air 10/08/21 06:00 10/08/21 08:00 Temperature 37.2 C Pulse Rate 74 74 Respiratory Rate 18 18 Blood Pressure 107/50 L Pulse Oximetry 99 99 Oxygen Delivery Room Air Intake/Output Intake/Output: Intake & Output 10/05/21 10/06/21 10/07/21 10/08/21 23:59 23:59 23:59 23:59 Intake Total 1000 2000 1000 Output Total 550 250 Balance 1000 1450 750 Meds/Results Medications: Active Medications Generic Name Dose Route Start Last Admin Trade Name Freq PRN Reason Stop Dose Admin Enoxaparin Sodium 30 mg 10/07/21 21:00 10/08/21 09:46 Enoxaparin 30 Mg/0.3 Ml Syringe SUB-Q Not Given Q12HR GRACE Sodium Chloride 1,000 mls @ 80 mls/hr 10/06/21 23:35 10/08/21 09:43 Normal Saline Iv IV CONT 80 mls/hr .[id number] GRACE Administration Morphine Sulfate 4 mg 10/06/21 23:33 Morphine Sulfate (*Crx) 4 Mg/Ml Inj IV PUSH Q2H PRN Pain Rated 7-10 Morphine Sulfate 2 mg 10/07/21 08:58 Morphine Sulfate (*Crx) 2 Mg/Ml Inj IV PUSH Q2H PRN Pain Rated 4-6 Ondansetron HCl 4 mg 10/06/21 23:33 Ondansetron Inj 4 Mg/2 Ml Vial IV PUSH Q4H PRN Nausea Radiology Results: ITS Impressions Abdomen/Pelvis CT 10/06/21 20:56 IMPRESSION: 1. Small bowel obstruction with apparent transition point in the midline at the pelvic inlet. Surgical evaluation is recommended. 2. Massive hiatal hernia containing the stomach and portions of the transverse colon. Abdomen X-Ray 10/08/21 06:35 Impression: 1: Nonspecific bowel gas pattern. 2: Large hiatal hernia. NG Tube Placement 10/08/21 08:32 Impression: 1: Unsuccessful attempts to place NG tube. Patient very combative. Labs Labs: Laboratory Results - last
[2021-10-08 14:00] VITALS: BP 141/94; PULSE 80; RESP 20; TEMP 36.6; O2SAT 100
[2021-10-08] MEDS: ENOXAPARIN 30 MG/0.3 ML SYRINGE SUB-Q (20:15)
[2021-10-08 20:41] VITALS: O2SAT 98
[2021-10-08 22:00] VITALS: BP 135/60; PULSE 77; RESP 20; TEMP 36.8; O2SAT 98
[2021-10-09] MEDS: SODIUM CHLORIDE 0.9% IV 1,000 ML 80 ML IV CONT ×2 (02:43→17:12)
[2021-10-09 05:34] VITALS: BP 160/72; PULSE 65; RESP 20; TEMP 36.4; O2SAT 98
--- NOTE | 2021-10-09 09:15 | WPDGIPROGNO ---
Progress Note: A&P Assessment and Plan (1) Abnormal CT scan: Code(s): R93.89 - Abnormal findings on diagnostic imaging of other specified body structures Status: Acute Assessment and Plan: CT scan suggest large hiatal hernia with intrathoracic stomach. Hiatal hernia also contains portion of the transverse colon. I suspect this is where her small-bowel obstruction was located. This is what caused difficulty passing NG tube. (2) Large hiatal hernia: Code(s): K44.9 - Diaphragmatic hernia without obstruction or gangrene Status: Chronic Assessment and Plan: Diaphragmatic hernia out with large hiatal hernia intrathoracic stomach in large component allows transverse colon to be involved.. If at all possible repair of this would be considered. (3) Small bowel obstruction: Code(s): K56.609 - Unspecified intestinal obstruction, unspecified as to partial versus complete obstruction Status: Acute Assessment and Plan: Small-bowel series reveals passage of contrast into the large intestine suggesting resolution of this obstruction. It appears as though obstruction quite likely is related to the hiatal hernia and portion of the colon going in to this hiatal hernia. I would allow liquid diet at this point if surgical service agrees. Subjective Date/time seen: 10/09/21 09:15 Patient anxious to drink some water. She denies abdominal pain. Past bowel movement yesterday. Review of Systems Review of Systems: review of systems noncontributory. Exam Narrative: Physical exam reveals patient be alert. Vital signs stable. HEENT exam reveals no icterus. Lungs are clear. Heart without murmur. Abdomen bowel sounds or present. Abdomen is soft. No localized tenderness. Objective Data Vital Signs Vital Signs: Vital Signs - 24 hr 10/08/21 14:00 10/08/21 20:00 10/08/21 22:00 Temperature 97.9 F 98.2 F Pulse Rate 80 77 Respiratory Rate 20 20 Blood Pressure 141/94 H 135/60 Pulse Oximetry 100 98 Oxygen Delivery Room Air 10/08/21 20:41 10/09/21 05:34 Temperature 97.6 F Pulse Rate 65 Respiratory Rate 20 Blood Pressure 160/72 H Pulse Oximetry 98 98 Oxygen Delivery Room Air Intake/Output Intake/Output: Intake & Output 10/06/21 10/07/21 10/08/21 10/09/21 23:59 23:59 23:59 23:59 Intake Total 1000 1999 1999 0 Output Total 550 250 2 Balance 1000 1450 1750 -2 Meds/Results Medications: Active Medications Generic Name Dose Route Start Last Admin Trade Name Freq PRN Reason Stop Dose Admin Enoxaparin Sodium 30 mg 10/07/21 21:00 10/08/21 20:15 Enoxaparin 30 Mg/0.3 Ml Syringe SUB-Q 30 mg Q12HR GRACE Administration Sodium Chloride 1,000 mls @ 80 mls/hr 10/06/21 23:35 10/09/21 08:23 Normal Saline Iv IV CONT Not Given .[id number] GRACE Morphine Sulfate 4 mg 10/06/21 23:33 Morphine Sulfate (*Crx) 4 Mg/Ml Inj IV PUSH Q2H PRN Pain Rated 7-10 Morphine Sulfate 2 mg 10/07/21 08:58 Morphine Sulfate (*Crx) 2 Mg/Ml Inj IV PUSH Q2H PRN Pain Rated 4-6 Ondansetron HCl 4 mg 10/06/21 23:33 Ondansetron Inj 4 Mg/2 Ml Vial IV PUSH Q4H PRN Nausea Radiology Results: ITS Impressions Abdomen/Pelvis CT 10/06/21 20:56 IMPRESSION: 1. Small bowel obstruction with apparent transition point in the midline at the pelvic inlet. Surgical evaluation is recommended. 2. Massive hiatal hernia containing the stomach and portions of the transverse colon. NG Tube Placement 10/08/21 08:32 Impression: 1: Unsuccessful attempts to place NG tube. Patient very combative. Upper GI Series 10/08/21 15:07 IMPRESSION: 1. Large sliding hiatal hernia. 2. Moderate esophageal dysmotility. 3. Partial small bowel obstruction. Labs Labs: Laboratory Results - last 24 hr 10/08/21 07:35 WBC 6.7 RBC 3.57 L Hgb 10.3 L Hct 31.4 L MCV 88.0 MCH 28.9 MCHC 32.8 RDW 13.5 Plt Count 237
[2021-10-09] MEDS: ENOXAPARIN 30 MG/0.3 ML SYRINGE SUB-Q ×2 (09:19→20:31)
--- NOTE | 2021-10-09 09:31 | PM.IMPN ---
Progress Note: A&P Assessment and Plan (1) Small bowel obstruction: Code(s): K56.609 - Unspecified intestinal obstruction, unspecified as to partial versus complete obstruction Status: Acute Assessment and Plan: -noted on CT abd/pelv -pt placed NPO w/ IVF, antiemetics, and pain control -NG attempted but unable to place likely secondary to large hiatal hernia -GI and general surgery consulted, appreciate recommendations -pt has bowel sounds today, did have a BM -per general surgery pt was advanced to clears today (2) Large hiatal hernia: Code(s): K44.9 - Diaphragmatic hernia without obstruction or gangrene Status: Chronic Assessment and Plan: -noted on CT abd/pelv -seen by GI who suspects pt has intermittent volvulus and perhaps intermittent obstruction in this area. He recommends evaluation with gastrografin upper GI and defer NG placement at this time. He feels pt would benefit from repair of hernia. -Upper GI series reveals passage of contrast into large intestine suggesting resolution of obstruction -GI and surgery both recommending clear liquids (3) [place] (acute kidney injury): Code(s): N17.9 - Acute kidney failure, unspecified Status: Acute Assessment and Plan: -baseline creat appears to be 1.1-1.3, pt unclear if she has hx of CKD or not, per daughter patient has been told she has it but then another pcp told her that she did not -1.4 on arrival, down to 1.2 w/ IVF -monitor daily BMP (4) HTN (hypertension): Code(s): I10 - Essential (primary) hypertension Status: Acute Assessment and Plan: -mildly elevated on arrival but has stablized -restart home meds (5) High cholesterol: Code(s): E78.00 - Pure hypercholesterolemia, unspecified Status: Acute Assessment and Plan: -continue statin Subjective Date/time seen: 10/09/21 09:31 Interval history: 86 yo female w/ hx of HTN and HLD admitted for SBO. Today patient has no abdominal pain. No N/V. She is having bowel movements. Review of Systems Review of Systems: All systems reviewed & are unremarkable except as noted in HPI and below Exam Narrative: General: No acute distress, non toxic appearing, elderly Eyes: PERRL, no scleral icterus HEENT: NCAT, external ears normal, MMM Respiratory: No respiratory distress, Lungs CTA bilaterally, no wheezing Cardiovascular: RRR, no murmur Abdominal: Soft, non tender, non distended, no rebound or guarding, bowel sounds present Musculoskeletal: Moves all 4 extremities, no edema Neurological: A/Ox3, speech clear, no facial asymmetry Skin: Warm, dry, no rashes Psychiatric: Normal affect, normal mood Objective Data Vital Signs Vital Signs: Vital Signs - 24 hr 10/08/21 14:00 10/08/21 20:00 10/08/21 22:00 Temperature 97.9 F 98.2 F Pulse Rate 80 77 Respiratory Rate 20 20 Blood Pressure 141/94 H 135/60 Pulse Oximetry 100 98 Oxygen Delivery Room Air 10/08/21 20:41 10/09/21 05:34 Temperature 97.6 F Pulse Rate 65 Respiratory Rate 20 Blood Pressure 160/72 H Pulse Oximetry 98 98 Oxygen Delivery Room Air Intake/Output Intake/Output: Intake & Output 10/06/21 10/07/21 10/08/21 10/09/21 23:59 23:59 23:59 23:59 Intake Total 1000 2000 2000 0 Output Total 550 250 2 Balance 1000 1450 1750 -2 Meds/Results Medications: Active Medications Generic Name Dose Route Start Last Admin Trade Name Freq PRN Reason Stop Dose Admin Enoxaparin Sodium 30 mg 10/07/21 21:00 10/09/21 09:19 Enoxaparin 30 Mg/0.3 Ml Syringe SUB-Q 30 mg Q12HR GRACE Administration Sodium Chloride 1,000 mls @ 80 mls/hr 10/06/21 23:35 10/09/21 08:23 Normal Saline Iv IV CONT Not Given .[id number] GRACE Morphine Sulfate 4 mg 10/06/21 23:33 Morphine Sulfate (*Crx) 4 Mg/Ml Inj IV PUSH Q2H PRN Pain Rated 7-10 Morphine Sulfate 2 mg 10/07/21 08:58 Morphine
[2021-10-09] MEDS: POTASSIUM CHLORIDE 20 MEQ TABLET.ER PO (11:09)
[2021-10-09] MEDS: hydroCHLOROthiazide 25 MG TABLET PO (11:09)
[2021-10-09] MEDS: amLODIPine BESYLATE 5 MG TABLET 10 MG PO (11:09)
--- NOTE | 2021-10-09 13:36 | PM.PNGS ---
Progress Note: A&P Assessment and Plan (1) Small bowel obstruction: Code(s): K56.609 - Unspecified intestinal obstruction, unspecified as to partial versus complete obstruction Status: Acute Assessment and Plan: Unable to get NG tube placed even under fluoroscopic guidance. Patient very resistant to placement. Now not having pain or tenderness of the abdomen. Yesterday's Upper GI & small-bowel follow-through with water-soluble contrast was ordered to see if small-bowel obstruction persists. it showed that there was signs of possible partial small bowel obstruction but dye did make it to the colon in 4 hours. Also showed abnormal secondary contractions of the lower esophagus bringing up the possibility of poor motility. Patient did have several bowel movements overnight and abdominal pain is largely resolved cell will try clear liquids for now. (2) Large hiatal hernia: Code(s): K44.9 - Diaphragmatic hernia without obstruction or gangrene Status: Chronic Assessment and Plan: patient's daughter/ POA was present today. Having reviewed the upper GI small-bowel follow-through and the x-rays from this morning I long discussion with both of them. I explained how the hiatal hernia possibly happened and all of her stomach and a loop of colon or up in it at the time of her CT scan. I explained how this might have caused some a obstruction of the large bowel and then with going NPO and wished natural decompression perhaps this resolved. There does appear to be dye from the upper GI getting through to the rectum on today's films. I then explained well with it would it would take to have surgical intervention for this which is a big surgery and that she needs further evaluation of her possible esophageal motility. Also needs to have medical clearance for a significantly long general anesthesia and she would have significant morbidity mortality at her age to have this procedure done. Since she is having bowel movements and feeling better it is certainly not urgent. Therefore, I recommend that we slowly increase her diet starting with clear liquids and she can have further discussions about this with Dr. Presley on Monday or in the office.. Subjective Subjective Date/Time Seen: 10/09/21 12:36 Patient is sitting up in bed when I entered the room. She denies abdominal pain today. She states she has had several bowel movements. I had a long discussion with the patient and her daughter who is POA regarding the patient's large hiatal hernia. Review of Systems Review of Systems: All systems reviewed & are unremarkable except as noted in HPI and below Constitutional: Constitutional: Reports as per HPI, Denies chills and Denies fever(s) Cardiovascular: Cardiovascular: Denies chest pain and Denies dyspnea Respiratory: Respiratory: Reports no additional respiratory complaints and Denies dyspnea Gastrointestinal: Gastrointestinal: Reports as per HPI and Denies bloating Musculoskeletal: Musculoskeletal: Reports no additional musculoskeletal complaints Neurologic: Denies memory loss Psychiatric: Psychiatric: Denies anxiety and Denies memory loss Exam Const: General: comfortable, no acute distress and awake; No confusion Nutritional Appearance: average body habitus Orientation/consciousness: patient oriented x3 HENMT: Head: normocephalic Mouth: Yes moist mucous membranes Resp: Effort & Inspection: no respiratory distress GI: Inspection: normal to inspection, non-distended and no visible herniation Rectal Exam: deferred Neuro: General: patient oriented x3 and No confusion Speech: normal speech Psych: Affect: normal affect Attitude: cooperative Insight: Good insight present (Psych) Objective Data Vital Signs Vital Signs: Vital Signs - 24 hr 10/08/21 14:00 10/08/21 20:00 10/08/21 22:00 Temperature 36.6 C 36.8 C Pulse Rate 80 77 Respiratory Rate 20 20 Blood Pressure 141/94 H 135/60 Pu
[2021-10-09 14:00] VITALS: BP 134/57; PULSE 73; RESP 16; TEMP 37; O2SAT 100
[2021-10-09] MEDS: MORPHINE SULFATE (*CRX) 4 MG/ML INJ IV PUSH (20:35)
[2021-10-09 22:00] VITALS: BP 116/68; PULSE 67; RESP 16; TEMP 37; O2SAT 98
[2021-10-10] MEDS: SODIUM CHLORIDE 0.9% IV 1,000 ML 80 ML IV CONT ×2 (02:59→15:00)
[2021-10-10 06:00] VITALS: BP 136/88; PULSE 74; RESP 16; TEMP 37; O2SAT 100
[2021-10-10 07:10] LABS: Basophils Percent Auto 0.4 % (0.2-1.2); Eosinophils Absolute Auto 0.1 K/mm3 (0-0.3); Eosinophils Percent Auto 0.9 % (0-4.4); Hematocrit 33.7 % (37.0-47.0); Hemoglobin 10.7 g/dL (12.0-15.0); Immature Granulocyte Absolute 0.02 K/mm3 (0.00-0.031); Immature Granulocyte Percent A 0.4 % (0-0.5); Lymphocytes Absolute Auto 1.91 K/mm3 (0.9-3.2); Lymphocytes Percent Auto 34.1 % (18.3-44.2); Mean Corpuscular HGB Conc 31.8 g/dl (32-36); Mean Corpuscular Hemoglobin 28.8 pg (26-34); Mean Corpuscular Volume 90.6 fl (80-100); Mean Platelet Volume 8.9 fl (7.4-10.4); Monocytes Absolute Auto 0.6 K/mm3 (0.1-0.6); Neutrophils Percent Auto 54.2 % (45.5-73.1); Platelet Count Result 219 k/mm3 (150-375); Red Blood Count 3.72 M/mm3 (4.2-5.4); Red Cell Distribution Width 13.5 % (11.5-14.5); White Blood Count 5.6 K/mm3 (4.5-10.0)
[2021-10-10 07:22] LABS: Alanine Aminotransferase 9 U/L (6-35); Albumin Level 2.8 g/dL (3.5-5.1); Alkaline Phosphatase 38 U/L (38-126); Anion Gap 4 mmol/L (8-16); Aspartate Amino Transferase 19 U/L (14-36); Bilirubin,Total 0.5 mg/dL (0.2-1.3); Blood Urea Nitrogen 16 mg/dL (7-17); Calcium 7.8 mg/dL (8.4-10.2); Carbon Dioxide 24 mmol/L (22-30); Chloride 110 mmol/L (98-107); Estimated CRCL calculation 31 ml/min; Estimated Glomerular Filt Rate > 60; Glucose 82 mg/dL (65-110); Potassium 2.6 mmol/L (3.4-5.0); Sodium 138 mmol/L (137-145)
--- NOTE | 2021-10-10 08:16 | WPDGIPROGNO ---
Progress Note: A&P Assessment and Plan (1) Large hiatal hernia: Code(s): K44.9 - Diaphragmatic hernia without obstruction or gangrene Status: Chronic Assessment and Plan: Patient with very large diaphragmatic hiatal hernia. This appears to have contained both stomach and portions of the colon on presentation. This also appears to have been the etiology for her small-bowel obstruction. Currently this is spontaneously decompressed. Small-bowel series shows contrast reaching the colon. Plan to advance diet slowly as tolerated. Surgery is following for consideration of surgery. Agree that surgery would be high risk given her advanced age. (2) Small bowel obstruction: Code(s): K56.609 - Unspecified intestinal obstruction, unspecified as to partial versus complete obstruction Status: Acute Assessment and Plan: Small-bowel obstruction appears resolved at this time. Will advance diet slowly. Surgery monitoring still. Subjective Date/time seen: 10/10/21 08:16 Patient alert comfortable this morning. Tolerating liquid diet. She denies abdominal pain. No emesis. Review of Systems Review of Systems: Review of systems noncontributory. Exam Narrative: Physical exam reveals patient be alert comfortable at rest. HEENT exam reveals no icterus. Lungs are clear. Heart without murmur. Abdomen bowel sounds are present soft nontender per with no organomegaly. Objective Data Vital Signs Vital Signs: Vital Signs - 24 hr 10/09/21 09:20 10/09/21 14:00 10/09/21 20:00 Temperature 98.6 F Pulse Rate 73 Respiratory Rate 16 Blood Pressure 134/57 L Pulse Oximetry 100 Oxygen Delivery Room Air Room Air 10/09/21 22:00 10/10/21 06:00 Temperature 98.6 F 98.6 F Pulse Rate 67 74 Respiratory Rate 16 16 Blood Pressure 116/68 136/88 Pulse Oximetry 98 100 Oxygen Delivery Intake/Output Intake/Output: Intake & Output 10/07/21 10/08/21 10/09/21 10/10/21 23:59 23:59 23:59 23:59 Intake Total 1999 1999 3600 1000 Output Total 550 250 2 Balance 1450 1750 3598 1000 Meds/Results Medications: Active Medications Generic Name Dose Route Start Last Admin Trade Name Freq PRN Reason Stop Dose Admin Amlodipine Besylate 10 mg 10/09/21 09:35 10/09/21 11:09 Amlodipine Besylate 5 Mg Tablet PO 10 mg DAILY GRACE Administration Enoxaparin Sodium 30 mg 10/07/21 21:00 10/09/21 20:31 Enoxaparin 30 Mg/0.3 Ml Syringe SUB-Q 30 mg Q12HR GRACE Administration Hydrochlorothiazide 25 mg 10/09/21 09:35 10/09/21 11:09 Hydrochlorothiazide 25 Mg Tablet PO 25 mg DAILY GRACE Administration Sodium Chloride 1,000 mls @ 80 mls/hr 10/06/21 23:35 10/10/21 02:59 Normal Saline Iv IV CONT 80 mls/hr .[id number] GRACE Administration Potassium Chloride 40 meq/ 520 mls @ 130 mls/hr 10/10/21 07:23 Sodium Chloride IVPB 10/10/21 11:22 ONCE ONE Morphine Sulfate 4 mg 10/06/21 23:33 10/09/21 20:35 Morphine Sulfate (*Crx) 4 Mg/Ml Inj IV PUSH 4 mg Q2H PRN Administration Pain Rated 7-10 Morphine Sulfate 2 mg 10/07/21 08:58 Morphine Sulfate (*Crx) 2 Mg/Ml Inj IV PUSH Q2H PRN Pain Rated 4-6 Ondansetron HCl 4 mg 10/06/21 23:33 Ondansetron Inj 4 Mg/2 Ml Vial IV PUSH Q4H PRN Nausea Potassium Chloride 20 meq 10/09/21 09:50 10/09/21 11:09 Potassium Chloride 20 Meq Tablet.Er PO 20 meq DAILY GRACE Administration Radiology Results: ITS Impressions Abdomen/Pelvis CT 10/06/21 20:56 IMPRESSION: 1. Small bowel obstruction with apparent transition point in the midline at the pelvic inlet. Surgical evaluation is recommended. 2. Massive hiatal hernia containing the stomach and portions of the transverse colon. NG Tube Placement 10/08/21 08:32 Impression: 1: Unsuccessful attempts to place NG tube. Patient very combative. Upper GI Series 10/08/21 15:07 IMPRESSION: 1. Large sliding hiatal hernia. 2. Mod
[2021-10-10] MEDS: POTASSIUM CHLORIDE 20 MEQ TABLET 40 MEQ PO (08:59)
[2021-10-10] MEDS: POTASSIUM CHLORIDE INJ 40 MEQ in SODIUM CHLORIDE 0.9% IV 500 ML 130 MEQ IVPB (08:59)
[2021-10-10] MEDS: ENOXAPARIN 30 MG/0.3 ML SYRINGE SUB-Q ×2 (08:59→21:03)
[2021-10-10] MEDS: amLODIPine BESYLATE 5 MG TABLET 10 MG PO (09:14)
[2021-10-10] MEDS: POTASSIUM CHLORIDE 20 MEQ TABLET.ER PO (09:14)
[2021-10-10] MEDS: hydroCHLOROthiazide 25 MG TABLET PO (09:14)
--- NOTE | 2021-10-10 12:29 | PM.IMPN ---
Progress Note: A&P Assessment and Plan (1) Small bowel obstruction: Code(s): K56.609 - Unspecified intestinal obstruction, unspecified as to partial versus complete obstruction Status: Acute Assessment and Plan: -noted on CT abd/pelv -pt placed NPO w/ IVF, antiemetics, and pain control -NG attempted but unable to place, even under fluoro, likely secondary to large hiatal hernia -GI and general surgery consulted, appreciate recommendations -pt has bowel sounds, having BMs -per GI pt was advanced to full liquids today (2) Large hiatal hernia: Code(s): K44.9 - Diaphragmatic hernia without obstruction or gangrene Status: Chronic Assessment and Plan: -noted on CT abd/pelv -seen by GI who suspects pt has intermittent volvulus and perhaps intermittent obstruction in this area. He recommends evaluation with gastrografin upper GI and defer NG placement at this time. He feels pt would benefit from repair of hernia. -Upper GI series reveals passage of contrast into large intestine suggesting resolution of obstruction -GI and surgery both recommending advancing diet (3) AUSTIN (acute kidney injury): Code(s): N17.9 - Acute kidney failure, unspecified Status: Acute Assessment and Plan: -baseline creat appears to be 1.1-1.3, pt unclear if she has hx of CKD or not, per daughter patient has been told she has it but then another pcp told her that she did not -1.4 on arrival, down to 1.0 w/ IVF -monitor daily BMP (4) HTN (hypertension): Code(s): I10 - Essential (primary) hypertension Status: Acute Assessment and Plan: -mildly elevated on arrival but has stablized -restart home meds (5) High cholesterol: Code(s): E78.00 - Pure hypercholesterolemia, unspecified Status: Acute Assessment and Plan: -continue statin Subjective Date/time seen: 10/10/21 12:29 Interval history: 86 yo female w/ hx of HTN and HLD admitted for SBO. Today patient has no abdominal pain. No N/V. She is having bowel movements. Doing well with clear liqiuds. Review of Systems Review of Systems: All systems reviewed & are unremarkable except as noted in HPI and below Exam Narrative: General: No acute distress, non toxic appearing, elderly Eyes: PERRL, no scleral icterus HEENT: NCAT, external ears normal, MMM Respiratory: No respiratory distress, Lungs CTA bilaterally, no wheezing Cardiovascular: RRR, no murmur Abdominal: Soft, non tender, non distended, no rebound or guarding, bowel sounds present Musculoskeletal: Moves all 4 extremities, no edema Neurological: A/Ox3, speech clear, no facial asymmetry Skin: Warm, dry, no rashes Psychiatric: Normal affect, normal mood Objective Data Vital Signs Vital Signs: Vital Signs - 24 hr 10/09/21 14:00 10/09/21 20:00 10/09/21 22:00 Temperature 98.6 F 98.6 F Pulse Rate 73 67 Respiratory Rate 16 16 Blood Pressure 134/57 L 116/68 Pulse Oximetry 100 98 Oxygen Delivery Room Air 10/10/21 06:00 Temperature 98.6 F Pulse Rate 74 Respiratory Rate 16 Blood Pressure 136/88 Pulse Oximetry 100 Oxygen Delivery Intake/Output Intake/Output: Intake & Output 10/07/21 10/08/21 10/09/21 10/10/21 23:59 23:59 23:59 23:59 Intake Total 1999 1999 3600 1000 Output Total 550 250 2 Balance 1450 1750 3598 1000 Meds/Results Medications: Active Medications Generic Name Dose Route Start Last Admin Trade Name Freq PRN Reason Stop Dose Admin Amlodipine Besylate 10 mg 10/09/21 09:35 10/10/21 09:14 Amlodipine Besylate 5 Mg Tablet PO 10 mg DAILY GRACE Administration Enoxaparin Sodium 30 mg 10/07/21 21:00 10/10/21 08:59 Enoxaparin 30 Mg/0.3 Ml Syringe SUB-Q 30 mg Q12HR GRACE Administration Hydrochlorothiazide 25 mg 10/09/21 09:35 10/10/21 09:14 Hydrochlorothiazide 25 Mg Tablet PO 25 mg DAILY GRACE Administration Sodium Chloride 1,000 m
[2021-10-10 13:54] LABS: Potassium 3.5 mmol/L (3.4-5.0)
[2021-10-10 14:00] VITALS: BP 133/52; PULSE 78; RESP 20; TEMP 37.3; O2SAT 100
--- NOTE | 2021-10-10 17:35 | PM.PNGS ---
Progress Note: A&P Assessment and Plan (1) Small bowel obstruction: Code(s): K56.609 - Unspecified intestinal obstruction, unspecified as to partial versus complete obstruction Status: Acute Assessment and Plan: Unable to get NG tube placed even under fluoroscopic guidance. Patient very resistant to placement. Now not having pain or tenderness of the abdomen. Monday's Upper GI & small-bowel follow-through with water-soluble contrast was ordered to see if small-bowel obstruction persists. It showed that there was signs of possible partial small bowel obstruction but dye did make it to the colon in 4 hours. Also showed abnormal secondary contractions of the lower esophagus bringing up the possibility of poor motility. Patient did have several bowel movements overnight Fri - Sat And also last night and abdominal pain is largely resolved. now tolerating full liquids. (2) Large hiatal hernia: Code(s): K44.9 - Diaphragmatic hernia without obstruction or gangrene Status: Chronic Assessment and Plan: Patient's daughter/ POA was not present today. Yesterday, having reviewed the upper GI small-bowel follow-through and the x-rays from that morning I had a long discussion with both of them. I explained how the hiatal hernia possibly happened and all of her stomach and a loop of colon or up in it at the time of her CT scan. I explained how this might have caused some a obstruction of the large bowel and then with going NPO and wished natural decompression perhaps this resolved. There does appear to be dye from the upper GI getting through to the rectum on today's films. I then explained what it would it would take to have surgical intervention for this which is a big surgery and that she needs further evaluation of her possible esophageal motility. Also needs to have medical clearance for a significantly long general anesthesia and she would have significant morbidity mortality at her age to have this procedure done. Since she is having bowel movements and feeling better it is certainly not urgent. Therefore, I recommend that we slowly increase her diet starting with clear liquids and she can have further discussions about this with Dr. Presley on Monday or in the office. Additional Plan Thepatient up to full liquids today continue to gradually increase diet as long as she tolerates it. Then could be discharged and follow up in the office should further symptoms occur. Probably would recommend PPI on home going. Subjective Subjective Date/Time Seen: 10/10/21 15:35 patient is sitting up in bed complaining about needing to urinate when I entered the room. After she use the commode I came back in she denies any abdominal pain. She is tolerating a full liquid diet now. Nurse reports several loose bowel movements through the day. Review of Systems Review of Systems: All systems reviewed & are unremarkable except as noted in HPI and below Constitutional: Constitutional: Reports as per HPI, Denies chills, Denies fatigue and Denies fever(s) Gastrointestinal: Gastrointestinal: Reports as per HPI and Denies bloating Musculoskeletal: Musculoskeletal: Reports no additional musculoskeletal complaints Psychiatric: Psychiatric: Denies anxiety and Denies confusion Exam Const: General: comfortable, no acute distress and awake; No confusion Nutritional Appearance: average body habitus Orientation/consciousness: patient oriented x3 HENMT: Head: normocephalic Mouth: Yes moist mucous membranes Resp: Effort & Inspection: no respiratory distress GI: Inspection: normal to inspection, non-distended and no visible herniation Rectal Exam: deferred Neuro: General: patient oriented x3 and No confusion Speech: normal speech Psych: Affect: normal affect Attitude: cooperative Insight: Good insight present (Psych) Objective Data Vital Signs Vital Signs: Vital Signs - 24 hr 10/09/21 20:00
[2021-10-10 20:50] VITALS: O2SAT 99
[2021-10-10 21:43] VITALS: BP 138/68; PULSE 73; RESP 16; TEMP 36.3; O2SAT 100
--- NOTE | 2021-10-11 01:50 | PC.NURSE ---
10/11/21 0126 contacted [facility] message left for iv placement.
--- NOTE | 2021-10-11 01:52 | PC.NURSE ---
10/11/21 0152 old iv site leaking several attempts made to place new iv but unsuccessful. call placed to [facility] for iv placement.
[2021-10-11 06:00] VITALS: BP 134/56; PULSE 71; RESP 18; TEMP 36.6; O2SAT 100
[2021-10-11 08:34] LABS: Basophils Percent Auto 0.2 % (0.2-1.2); Eosinophils Absolute Auto 0.1 K/mm3 (0-0.3); Eosinophils Percent Auto 1.6 % (0-4.4); Hematocrit 36.5 % (37.0-47.0); Hemoglobin 11.9 g/dL (12.0-15.0); Immature Granulocyte Absolute 0.01 K/mm3 (0.00-0.031); Immature Granulocyte Percent A 0.2 % (0-0.5); Lymphocytes Absolute Auto 1.64 K/mm3 (0.9-3.2); Lymphocytes Percent Auto 29.9 % (18.3-44.2); Mean Corpuscular HGB Conc 32.6 g/dl (32-36); Mean Corpuscular Hemoglobin 28.5 pg (26-34); Mean Corpuscular Volume 87.5 fl (80-100); Monocytes Absolute Auto 0.7 K/mm3 (0.1-0.6); Neutrophils Absolute Auto 3.1 K/mm3 (1.3-6.7); Neutrophils Percent Auto 56.1 % (45.5-73.1); Platelet Count Result 240 k/mm3 (150-375); Red Blood Count 4.17 M/mm3 (4.2-5.4); Red Cell Distribution Width 13.7 % (11.5-14.5); White Blood Count 5.5 K/mm3 (4.5-10.0)
--- NOTE | 2021-10-11 08:41 | PM.PNGS ---
Progress Note: A&P Assessment and Plan (1) Small bowel obstruction: Code(s): K56.609 - Unspecified intestinal obstruction, unspecified as to partial versus complete obstruction Status: Acute Assessment and Plan: Resolved after water-soluble contrast small-bowel follow-through. Tolerating food well. Agree with regular diet. Will sign off. Patient can be discharged from general surgical perspective. No need for surgical follow-up. (2) Large hiatal hernia: Code(s): K44.9 - Diaphragmatic hernia without obstruction or gangrene Status: Chronic Assessment and Plan: Not part of her current symptom complex. Longstanding and would be risky surgery. Would only repair if obstructive or other distinctive symptoms reparable to the hernia were to present. I could see her in the office if this should be the case in the future. No need for surgical follow-up at the present time. Subjective Subjective Date/Time Seen: 10/11/21 08:41 Patient reports: pain is less ( denies having any abdominal pain), bowel movement, afebrile and other ( tolerating full liquids well and has been advanced to regular food.) Review of Systems Review of Systems: All systems reviewed & are unremarkable except as noted in HPI and below Constitutional: Constitutional: Denies chills and Denies fever(s) Cardiovascular: Cardiovascular: Denies chest pain and Denies dyspnea Respiratory: Respiratory: Denies cough and Denies dyspnea Gastrointestinal: Gastrointestinal: Reports as per HPI Integumentary/Breasts: Skin/Breast: Denies lesions and Denies rash Exam Const: General: cooperative, comfortable, no acute distress, alert and awake Nutritional Appearance: average body habitus GI: Inspection: normal to inspection, non-distended and no visible herniation GI Palp: Yes Soft to palpation, No Tenderness to palpation present (GI), No Guarding due to palpation present (GI) and No Rebound tenderness present Auscultation: normal bowel sounds Neuro: General: no focal motor deficits and No confusion Extrem: General: no calf tenderness and no edema Psych: Affect: normal affect Objective Data Vital Signs Vital Signs: Vital Signs - 24 hr 10/10/21 14:00 10/10/21 20:00 10/10/21 21:43 Temperature 37.3 C 36.3 C L Pulse Rate 78 73 Respiratory Rate 20 16 Blood Pressure 133/52 L 138/68 Pulse Oximetry 100 100 Oxygen Delivery Room Air Oxygen Flow Rate 10/10/21 20:50 10/11/21 06:00 Temperature 36.6 C Pulse Rate 71 Respiratory Rate 18 Blood Pressure 134/56 L Pulse Oximetry 99 100 Oxygen Delivery Nasal Cannula Oxygen Flow Rate 1 Intake/Output Intake/Output: Intake & Output 10/08/21 10/09/21 10/10/21 10/11/21 23:59 23:59 23:59 23:59 Intake Total 2000 3600 4220 1000 Output Total 250 2 600 1800 Balance 1750 3598 3620 -800 Meds/Results Medications: Active Medications Generic Name Dose Route Start Last Admin Trade Name Freq PRN Reason Stop Dose Admin Amlodipine Besylate 10 mg 10/09/21 09:35 10/10/21 09:14 Amlodipine Besylate 5 Mg Tablet PO 10 mg DAILY GRACE Administration Enoxaparin Sodium 30 mg 10/07/21 21:00 10/10/21 21:03 Enoxaparin 30 Mg/0.3 Ml Syringe SUB-Q 30 mg Q12HR GRACE Administration Hydrochlorothiazide 25 mg 10/09/21 09:35 10/10/21 09:14 Hydrochlorothiazide 25 Mg Tablet PO 25 mg DAILY GRACE Administration Morphine Sulfate 4 mg 10/06/21 23:33 10/09/21 20:35 Morphine Sulfate (*Crx) 4 Mg/Ml Inj IV PUSH 4 mg Q2H PRN Administration Pain Rated 7-10 Morphine Sulfate 2 mg 10/07/21 08:58 Morphine Sulfate (*Crx) 2 Mg/Ml Inj IV PUSH Q2H PRN Pain Rated 4-6 Ondansetron HCl 4 mg 10/06/21 23:33 Ondansetron Inj 4 Mg/2 Ml Vial IV PUSH Q4H PRN Nausea Potassium Chloride 20 meq 10/09/21 09:50 10/10/21 09:14 Potassium Chloride 20 Meq Tablet.Er PO 20 meq DAILY GRACE Administration Radiology Results:
--- NOTE | 2021-10-11 08:48 | WPDGIPROGNO ---
Progress Note: A&P Assessment and Plan (1) Large hiatal hernia: Code(s): K44.9 - Diaphragmatic hernia without obstruction or gangrene Status: Chronic Assessment and Plan: Patient with very large hiatal hernia. Appears to been etiology for recent small bowel obstruction. Currently this has improved. Plan to advance diet as tolerated. Should symptoms recur surgical repairs anticipated. Medically no additional recommendations. Advance diet currently. (2) Small bowel obstruction: Code(s): K56.609 - Unspecified intestinal obstruction, unspecified as to partial versus complete obstruction Status: Acute Assessment and Plan: Small-bowel obstruction resolved. Appears to have been related to large hiatal hernia. That has intrathoracic stomach and also portion of the colon. Given her age conservative therapy is been suggested. Suggest follow-up as per surgery currently they wish to pursue conservative approach. Subjective Date/time seen: 10/11/21 08:48 On patient alert comfortable this morning. Tolerated full liquid diet with no difficulties. Currently denies abdominal pain. Passing bowel movement with no obstruction. Review of Systems Review of Systems: Review of systems noncontributory. Exam Narrative: Physical exam reveals patient to be alert comfortable at rest she is anicteric HEENT exam unremarkable. Lungs are clear to auscultation and percussion. Heart is without murmur or extra sounds. Abdominal exam bowel sounds present soft nontender with no organomegaly. Objective Data Vital Signs Vital Signs: Vital Signs - 24 hr 10/10/21 14:00 10/10/21 20:00 10/10/21 21:43 Temperature 99.2 F 97.3 F L Pulse Rate 78 73 Respiratory Rate 20 16 Blood Pressure 133/52 L 138/68 Pulse Oximetry 100 100 Oxygen Delivery Room Air Oxygen Flow Rate 10/10/21 20:50 10/11/21 06:00 Temperature 97.8 F Pulse Rate 71 Respiratory Rate 18 Blood Pressure 134/56 L Pulse Oximetry 99 100 Oxygen Delivery Nasal Cannula Oxygen Flow Rate 1 Intake/Output Intake/Output: Intake & Output 10/08/21 10/09/21 10/10/21 10/11/21 23:59 23:59 23:59 23:59 Intake Total 1999 3600 4220 1000 Output Total 250 2 600 1800 Balance 1750 3598 3620 -800 Meds/Results Medications: Active Medications Generic Name Dose Route Start Last Admin Trade Name Freq PRN Reason Stop Dose Admin Amlodipine Besylate 10 mg 10/09/21 09:35 10/10/21 09:14 Amlodipine Besylate 5 Mg Tablet PO 10 mg DAILY GRACE Administration Enoxaparin Sodium 30 mg 10/07/21 21:00 10/10/21 21:03 Enoxaparin 30 Mg/0.3 Ml Syringe SUB-Q 30 mg Q12HR GRACE Administration Hydrochlorothiazide 25 mg 10/09/21 09:35 10/10/21 09:14 Hydrochlorothiazide 25 Mg Tablet PO 25 mg DAILY GRACE Administration Morphine Sulfate 4 mg 10/06/21 23:33 10/09/21 20:35 Morphine Sulfate (*Crx) 4 Mg/Ml Inj IV PUSH 4 mg Q2H PRN Administration Pain Rated 7-10 Morphine Sulfate 2 mg 10/07/21 08:58 Morphine Sulfate (*Crx) 2 Mg/Ml Inj IV PUSH Q2H PRN Pain Rated 4-6 Ondansetron HCl 4 mg 10/06/21 23:33 Ondansetron Inj 4 Mg/2 Ml Vial IV PUSH Q4H PRN Nausea Potassium Chloride 20 meq 10/09/21 09:50 10/10/21 09:14 Potassium Chloride 20 Meq Tablet.Er PO 20 meq DAILY GRACE Administration Radiology Results: ITS Impressions Abdomen/Pelvis CT 10/06/21 20:56 IMPRESSION: 1. Small bowel obstruction with apparent transition point in the midline at the pelvic inlet. Surgical evaluation is recommended. 2. Massive hiatal hernia containing the stomach and portions of the transverse colon. NG Tube Placement 10/08/21 08:32 Impression: 1: Unsuccessful attempts to place NG tube. Patient very combative. Upper GI Series 10/08/21 15:07 IMPRESSION: 1. Large sliding hiatal hernia. 2. Moderate esophageal dysmotility. 3. Partial small bowel obstruction. Abdomen X-Ra
[2021-10-11 08:55] LABS: Alanine Aminotransferase 13 U/L (6-35); Albumin Level 3.1 g/dL (3.5-5.1); Alkaline Phosphatase 47 U/L (38-126); Anion Gap 1 mmol/L (8-16); Aspartate Amino Transferase 18 U/L (14-36); Bilirubin,Total 0.5 mg/dL (0.2-1.3); Blood Urea Nitrogen 7 mg/dL (7-17); Calcium 8.1 mg/dL (8.4-10.2); Carbon Dioxide 26 mmol/L (22-30); Chloride 108 mmol/L (98-107); Estimated CRCL calculation 35 ml/min; Estimated Glomerular Filt Rate > 60; Glucose 85 mg/dL (65-110); Potassium 3.6 mmol/L (3.4-5.0); Sodium 135 mmol/L (137-145)
--- NOTE | 2021-10-11 09:21 | PM.DS ---
DS: Admitting Diagnosis Discharge Date 10/11/21 Admitting Diagnosis SBO DS: Discharge Diagnosis Discharge Diagnosis (1) Small bowel obstruction: Code(s): K56.609 - Unspecified intestinal obstruction, unspecified as to partial versus complete obstruction Status: Acute Assessment and Plan: -noted on CT abd/pelv -pt initially placed NPO w/ IVF, antiemetics, and pain control -NG attempted but unable to place, even under fluoro, likely secondary to large hiatal hernia -GI and general surgery consulted -pt has bowel sounds, having BMs, obstruction resolved -GI/general surgery state pt stable for discharge, outpatient follow up (2) Large hiatal hernia: Code(s): K44.9 - Diaphragmatic hernia without obstruction or gangrene Status: Chronic Assessment and Plan: -noted on CT abd/pelv -seen by GI who suspects pt has intermittent volvulus and perhaps intermittent obstruction in this area. He recommends evaluation with gastrografin upper GI and defer NG placement at this time. He feels pt would benefit from repair of hernia. -Upper GI series reveals passage of contrast into large intestine suggesting resolution of obstruction -GI and surgery both recommending discharge with outpatient follow up if symptoms return. She is currently asymptomatic. Any further discussion about repairing hernia can happen outpatient as she is very high risk for such a large surgery. (3) [place] (acute kidney injury): Code(s): N17.9 - Acute kidney failure, unspecified Status: Acute Assessment and Plan: -baseline creat appears to be 1.1-1.3, pt unclear if she has hx of CKD or not, per daughter patient has been told she has it but then another pcp told her that she did not -1.4 on arrival, down to 0.9 w/ IVF (4) HTN (hypertension): Code(s): I10 - Essential (primary) hypertension Status: Acute Assessment and Plan: -mildly elevated on arrival but has stabilized -restarted home meds (5) High cholesterol: Code(s): E78.00 - Pure hypercholesterolemia, unspecified Status: Acute Assessment and Plan: -continued statin (6) Hypokalemia: Code(s): E87.6 - Hypokalemia Status: Acute Assessment and Plan: -monitored and replaced -resolved DS: Summary Hospital Course Reason for hospitalization: 86 yo female w/ hx of HTN and HLD admitted for SBO. Please see HPI for further details. Hospital Course: Please see above for details of hospital course. Status at Discharge Cognitive/behavioral status at discharge: stable Functional status at discharge: uses cane/walker Time Spent with Patient Time attestation: Total time spent providing and/or coordinating discharge services: 35 Time spent: Greater than 30 minutes Exam Narrative: General: No acute distress, non toxic appearing, elderly Eyes: PERRL, no scleral icterus HEENT: NCAT, external ears normal, MMM Respiratory: No respiratory distress, Lungs CTA bilaterally, no wheezing Cardiovascular: RRR, no murmur Abdominal: Soft, non tender, non distended, no rebound or guarding, bowel sounds present Musculoskeletal: Moves all 4 extremities, no edema Neurological: A/Ox3, speech clear, no facial asymmetry Skin: Warm, dry, no rashes Psychiatric: Normal affect, normal mood DS: Data Data Completed and Pending Labs on day of discharge: Labs from last 24 hours 10/11/21 10/11/21 10/10/21 08:17 08:17 13:28 WBC 5.5 RBC 4.17 L Hgb 11.9 L Hct 36.5 L MCV 87.5 MCH 28.5 MCHC 32.6 RDW 13.7 Plt Count 240 MPV 9.0 Immature Gran % (Auto) 0.2 Neut % (Auto) 56.1 Lymph % (Auto) 29.9 [place] % (Auto) 12.0 H Eos % (Auto) 1.6 Baso % (Auto) 0.2 Lymph # (Auto) 1.64 [place] # (Auto) 0.7 H Eos # (Auto) 0.1 Baso # (Auto) 0.0 Abs Immat Gran (auto) 0.01 Absolute Neuts (auto) 3.1 Absolute Nucleated RBC
[2021-10-11] MEDS: amLODIPine BESYLATE 5 MG TABLET 10 MG PO (09:31)
[2021-10-11] MEDS: ENOXAPARIN 30 MG/0.3 ML SYRINGE SUB-Q (09:31)
[2021-10-11] MEDS: hydroCHLOROthiazide 25 MG TABLET PO (09:31)
[2021-10-11] MEDS: POTASSIUM CHLORIDE 20 MEQ TABLET.ER PO (09:31)
== END 2021-10-11 13:28 | disposition home or self-care (01) | DRG 389 ==
LOC: ANHED 23:32 → ANH3MEDSUR 10-07 01:19
PROVIDERS: Emergency Medicine; Admitting Provider Internal Medicine; Emergency Provider Emergency Medicine; PCP Emergency Medicine; Visit Provider Physician Assistant
DX: K56.609 Unspecified intestinal obstruction, unspecified as to partial versus complete obstruction (principal); N17.9 Acute kidney failure, unspecified; I10 Essential (primary) hypertension; E78.00 Pure hypercholesterolemia, unspecified; Z87.891 Personal history of nicotine dependence; Z79.899 Other long term (current) drug therapy; Z20.822 Contact with and (suspected) exposure to COVID-19; K44.9 Diaphragmatic hernia without obstruction or gangrene
CPT/HCPCS: 36415; 74018; 74019; 74176; 74240; 74248; 80053; 81001; 83690; 84132; 85025; 96361; 96374; 96375; 99285; A9270; C9803; G0378; J1650; J2060; J2270; J3480; J7030; J7040; U0003; U0005

== ENCOUNTER 2021-11-18 06:20 | Emergency (ER) | payer OTHER, SELFPAY ==
[2021-11-18] VITALS (9 sets, daily range): BP systolic 125–133; BP diastolic 55–65; PULSE 56–69; RESP 16–21; TEMP 36.6; O2SAT 90–100
--- NOTE | ~2021-11-18 | CT_ITS ---
EXAMINATION: CT brain wo con DATE: 11/18/2021 07:54 INDICATION: Head trauma post fall TECHNIQUE: Computed tomography (CT) of the head was performed without intravenous contrast. Sagittal and coronal reconstructions were performed. The mA was adjusted according to patient size. Iterative reconstruction technique was employed. The dose-length product was 605.33 mGy-cm. COMPARISON: None FINDINGS: No fracture. No acute intracranial hemorrhage, acute infarction or abnormal extra axial fluid collect ion. There is mild scattered white matter hypoattenuation consistent with chronic small vessel ischem ic disease. Symmetric prominence of the sulci and and subarachnoid spaces overlying the convexities c onsistent with mild age-appropriate diffuse cerebral volume loss. Ventricles are normal and symmetri c. No mass/mass effect. Likely senescent scleral calcifications and changes of right intraocular lens replacement. The paranasal sinuses and mastoid air cells are normal. IMPRESSION: 1. No fracture or acute intracranial process. 2. Age-related changes including mild diffuse volume loss and mild scattered white matter hypoattenua tion consistent with chronic small vessel ischemic disease. Reviewed, dictated and finalized at location B. IMPRESSION: 1. No fracture or acute intracranial process. 2. Age-related changes including mild diffuse volume loss and mild scattered wh ite matter hypoattenuation consistent with chronic small vessel ischemic diseas e.
--- NOTE | ~2021-11-18 | XR_ITS ---
EXAMINATION: XR chest 2V DATE: 11/18/2021 08:03 INDICATION: Chest injury. Fall. TECHNIQUE: Frontal and lateral views of the chest were obtained. COMPARISON: Chest 2 views 04/06/2019, CT abdomen and pelvis 10/06/2021 FINDINGS: There is a large hiatal hernia. There is mild atelectasis at left lung base. No pleural eff usion or pneumothorax. The heart size is normal. IMPRESSION: 1. Large hiatal hernia with mild atelectasis at left lung base. Reviewed, dictated and finalized at location A.
--- NOTE | 2021-11-18 07:04 | ED.FALL ---
HPI - Fall General Chief Complaint: Fall Stated Complaint: Fall Time Seen by Provider: 11/18/21 07:04 History of Present Illness HPI Narrative: The patient is an 86-year-old female with a history of dementia that presents to the emergency department for evaluation following a ground-level fall. Patient's daughter provides a history as patient's history is limited secondary to her dementia. Patient's daughter states that she heard a thud from the bathroom this morning and went into the restroom to see her mom laying on the floor. Patient had had a bowel movement and had finished washing her hands, as daughter had noticed soapsuds in the sink. Patient is not able to recall events regarding the fall. Unknown if she hit her head or loss consciousness, although daughter does not think so given she was awake and alert at baseline when daughter reached the bathroom. Patient was able to ambulate after the injury and is not reporting any pain. Patient's daughter wanted her evaluated secondary to the fall and limitation providing history No recent history of infections. No recent fever, chills, nausea, vomiting, report of abdominal pain. Patient is not on any anticoagulation. Patient is currently alert and oriented to person, place, not to time. She is mentating at baseline per family. Related Data Home Medications Medication Instructions Recorded Confirmed atorvastatin 20 mg tablet 20 mg PO DAILY 04/06/19 10/07/21 hydrochlorothiazide 25 mg tablet 25 mg PO DAILY 04/06/19 10/07/21 oxybutynin chloride 10 mg 10 mg PO DAILY 04/06/19 10/07/21 tablet,extended release 24 hr potassium chloride 20 mEq 20 tablet PO DAILY 10/07/21 10/07/21 tablet,extended release(part/cryst) (Klor-Con M) Allergies Allergy/AdvReac Type Severity Reaction Status Date / Time No Known Allergies Allergy Verified 11/18/21 06:40 Review of Systems Review of Systems: Limited secondary to patient's dementia [facility] Past Medical History Medical History High cholesterol HTN (hypertension) Surgical History Surgical History H/O section History of knee replacement, total left Social History Social History Social History: Lives with her daughter, Tamara Smoking status: Former smoker Tobacco type: cigarettes Alcohol intake: never Substance use: never Substance use type: former substance user Gender identity (if verbalized by the patient): Female Spiritual care concerns: No Exam Narrative: GENERAL: Awake, alert, conversant HEAD: Normocephalic, atraumatic. EYES: PERRLA and EOMI. ENT: Nares clear, no rhinorrhea or epistaxis. Mucous membranes moist. NECK: Supple. No midline cervical tenderness. No step-offs or deformities CHEST: No respiratory distress, breathing even and non labored, no chest wall tenderness, no ecchymosis or crepitus HEART: Regular rate, sinus rhythm ABDOMEN:Non distended, non tender EXTREMITIES: Normal range of motion. No edema. SKIN: Warm, dry, no rash. NEURO:No focal deficits. Alert and oriented x2, mentating at baseline Course Vital Signs Vital signs: Vital Signs Temperature 36.6 C 11/18/21 06:37 Pulse Rate 69 11/18/21 06:37 Respiratory Rate 18 11/18/21 06:37 Blood Pressure 125/55 L 11/18/21 06:37 Pulse Oximetry 100 11/18/21 06:37 Oxygen Delivery Room Air 11/18/21 06:37 Temperature 36.6 C 11/18/21 06:37 Pulse Rate 59 L 11/18/21 08:45 Respiratory Rate 17 11/18/21 08:45 Blood Pressure 128/60 11/18/21 07:31 Pulse Oximetry 100 11/18/21 08:45 Oxygen Delivery Room Air 11/18/21 06:37 MDM - Fall MDM Narrative Medical decision making narrative: Patient presenting to the emergency department for evaluation following a ground-level fall. Differential also includes syncopal event, tachydysr
--- NOTE | 2021-11-18 07:32 | ECG_ITS ---
Measurements Intervals [place] Rate: 55 P: 16 [place]: 197 QRS: 6 QRSD: 73 T: 21 QT: 388 QTc: 373 Interpretive Statements SINUS BRADYCARDIA INCOMPLETE RIGHT BUNDLE BRANCH BLOCK BORDERLINE R WAVE PROGRESSION, ANTERIOR LEADS CONSIDER INFERIOR INFARCT, AGE INDETERMINATE ABNORMAL ECG Electronically Signed On 11-18-2021 9:24:05 CDT by Andrew Gallagher D.O.
[2021-11-18] MEDS: SODIUM CHLORIDE 0.9% IV 500 ML 999 ML IV CONT (08:15)
[2021-11-18 08:31] LABS: Basophils Percent Auto 0.4 % (0.2-1.2); Eosinophils Percent Auto 0.6 % (0-4.4); Hematocrit 36.5 % (37.0-47.0); Hemoglobin 11.6 g/dL (12.0-15.0); Immature Granulocyte Absolute 0.01 K/mm3 (0.00-0.031); Immature Granulocyte Percent A 0.1 % (0-0.5); Lymphocytes Absolute Auto 1.48 K/mm3 (0.9-3.2); Mean Corpuscular HGB Conc 31.8 g/dl (32-36); Mean Corpuscular Hemoglobin 28.8 pg (26-34); Mean Corpuscular Volume 90.6 fl (80-100); Mean Platelet Volume 9.2 fl (7.4-10.4); Monocytes Absolute Auto 0.6 K/mm3 (0.1-0.6); Monocytes Percent Auto 8.2 % (2.6-8.5); Neutrophils Absolute Auto 4.6 K/mm3 (1.3-6.7); Neutrophils Percent Auto 68.7 % (45.5-73.1); Platelet Count Result 238 k/mm3 (150-375); Red Blood Count 4.03 M/mm3 (4.2-5.4); Red Cell Distribution Width 14.4 % (11.5-14.5); White Blood Count 6.7 K/mm3 (4.5-10.0)
[2021-11-18 08:42] LABS: Anion Gap 4 mmol/L (8-16); Blood Urea Nitrogen 11 mg/dL (7-17); Calcium 9.6 mg/dL (8.4-10.2); Carbon Dioxide 29 mmol/L (22-30); Chloride 105 mmol/L (98-107); Estimated CRCL calculation 31 ml/min; Estimated Glomerular Filt Rate > 60; Glucose 82 mg/dL (65-110); Sodium 138 mmol/L (137-145)
[2021-11-18 08:55] LABS: Troponin I < 0.012 ng/mL (0.000-0.034)
[2021-11-18 09:21] LABS: Appearance Urine Clear (Clear); Bilirubin Urine Negative (Negative); Blood Urine Negative (Negative); Color Urine Yellow (Yellow); Glucose Urine UA Negative (Negative); Ketones Urine Negative (Negative); Leukocyte Esterase Ur Negative LEU/UL (Negative); Nitrate Urine Negative (Negative); Protein Urine Negative (Negative); Urobilinogen Urine 0.2 mg/dL (<2.0); pH Urine 6.5 (5.0-9.0)
[2021-11-18 10:10] LABS: Add Urine Microscopic? NO
[2021-11-18 11:39] LABS: Troponin I < 0.012 ng/mL (0.000-0.034)
== END 2021-11-18 12:00 | disposition home or self-care (01) ==
PROVIDERS: Emergency Provider Emergency Medicine; PCP Emergency Medicine
DX: Z04.3 Encounter for examination and observation following other accident (principal); F03.90 Unspecified dementia, unspecified severity, without behavioral disturbance, psychotic disturbance, mood disturbance, and anxiety; E78.00 Pure hypercholesterolemia, unspecified; I10 Essential (primary) hypertension; Z87.891 Personal history of nicotine dependence; Z96.652 Presence of left artificial knee joint; K44.9 Diaphragmatic hernia without obstruction or gangrene; R00.1 Bradycardia, unspecified; I45.10 Unspecified right bundle-branch block; R94.31 Abnormal electrocardiogram [ECG] [EKG]; W18.30XA Fall on same level, unspecified, initial encounter
CPT/HCPCS: 36415; 70450; 71046; 80048; 81003; 84443; 84484; 85025; 93005; 96360; 99284; J7040

== ENCOUNTER 2022-09-29 01:33 | Emergency (ER) | payer OTHER, SELFPAY ==
--- NOTE | ~2022-09-29 | XR_ITS ---
AP view of the pelvis Clinical history: Pain Findings: No acute fracture or dislocation is seen. Osseous alignment is anatomic. There is mild dege nerative change of both hip joints. With possible intra-articular loose body in the left hip joint me asuring 8 mm. Soft tissues are unremarkable. Impression: Mild degenerative change of both hip joints. Possibly 8 mm intra-articular loose body of the left hip joint. Reviewed, dictated and finalized at location M. Impression: Mild degenerative change of both hip joints. Possibly 8 mm intra-articular loos e body of the left hip joint.
--- NOTE | ~2022-09-29 | CT_ITS ---
Non-contrast Head CT History: Head injury COMPARISON: 11/18/2021 Technique: Axial non-contrast imaging of the brain was performed. Dose reduction technique was used on this scan by utilizing automated exposure control and iterative reconstruction technique. The dose -length product (DLP) was 605.33 mGy-cm. Findings: There is no evidence of intracranial hemorrhage, mass lesion, or acute infarct. Brain par enchyma appears normal. The ventricles and subarachnoid spaces are normal in size. The calvarium ap pears normal. The visualized paranasal sinuses and mastoid air cells are clear. Impression: No significant abnormality seen. Reviewed, dictated and finalized at location . Impression: No significant abnormality seen.
[2022-09-29 01:38] VITALS: BP 147/53; PULSE 54; RESP 20; TEMP 37; O2SAT 96
--- NOTE | 2022-09-29 02:06 | ED.FALL ---
HPI - Fall General Chief Complaint: Fall Stated Complaint: fall Time Seen by Provider: 09/29/22 01:52 History of Present Illness HPI Narrative: This is an 87-year-old female with past history of hyperlipidemia and dementia, who presents emergency department after a fall this evening. The patient's daughter who is at bedside, notes she heard a thump and found the patient lying on the floor. The patient was able to stand with some assistance and was able to walk to the car with a normal gait. The patient has baseline difficulties with memory and does not recall the fall. She has complained of intermittent left hip pain. Related Data Home Medications Medication Instructions Recorded Confirmed atorvastatin 20 mg tablet 20 mg PO DAILY 04/06/19 10/07/21 hydrochlorothiazide 25 mg tablet 25 mg PO DAILY 04/06/19 10/07/21 oxybutynin chloride 10 mg 10 mg PO DAILY 04/06/19 10/07/21 tablet,extended release 24 hr potassium chloride 20 mEq 20 tablet PO DAILY 10/07/21 10/07/21 tablet,extended release(part/cryst) (Klor-Con M) Allergies Allergy/AdvReac Type Severity Reaction Status Date / Time Penicillins Allergy Other Verified 09/29/22 02:07 Review of Systems Review of Systems: CONSTITUTIONAL: Denies fever, chills, or sweats. CARDIOVASCULAR: Denies chest pain, palpitations, or edema. RESPIRATORY: Denies cough or dyspnea. GASTROINTESTINAL: Denies abdominal pain, nausea, vomiting, or diarrhea. GENITOURINARY: Denies dysuria or hematuria. SKIN: Denies rash or itching. MUSCULOSKELETAL: Left hip pain denies back pain, or myalgia. NEUROLOGIC: Denies headache, numbness, dizziness, or weakness. PSYCHIATRIC: Denies anxiety or depression. [facility] Past Medical History Medical History (Updated 09/29/22 @ 03:22 by Wang Pitts MD) Dementia High cholesterol HTN (hypertension) Surgical History Surgical History H/O section History of knee replacement, total left Social History Social History Social History: Lives with her daughter, Tamara Smoking status: Former smoker Tobacco type: cigarettes Alcohol intake: never Substance use: never Substance use type: former substance user Gender identity (if verbalized by the patient): Female Spiritual care concerns: No Exam Narrative: GENERAL: Well-developed, well-nourished, and in no acute distress. HEAD: Normocephalic, a small ecchymosis is noted at the lateral aspect of the left eyebrow. No tenderness to palpation over the face. No noted hematoma EYES: PERRLA and EOMI. ENT: Nares clear, no rhinorrhea or epistaxis. Mucous membranes moist. Oropharynx without tonsillar hypertrophy exudate or other lesions. NECK: Supple. No adenopathy or masses. No carotid bruits or JVD. No midline spine tenderness to palpation, no step-off or crepitus CHEST: Clear to auscultation. No respiratory distress. No wheezes rales or rhonchi HEART: Regular rate and rhythm. No murmur heard. Normal peripheral pulses. ABDOMEN: Soft, nontender, nondistended, normal active bowel sounds. BACK: No midline spine tenderness to palpation, no step-off or crepitus EXTREMITIES: Tender to palpation over the left hip. There is no noted ecchymosis or hematoma. Normal range of motion of all extremities. No edema. SKIN: Warm, dry, no rash. NEURO: No focal deficits. Alert and oriented x3. Strength 5/5 in all extremities, sensation intact bilaterally PSYCH: Normal mood and affect. Course Course Emergency Course: 03:10 - STAT Rad interpretation of the patient's CT head is not concerning for hemorrhage, hydrocephalus, mass effect or herniation. My review of the patient's pelvis x-ray demonstrates arthritic changes but is not concerning for fracture or dislocation. In the absence of other symptoms as noted by the patient's daughter, I do not suspect underlying illness.
[2022-09-29 03:39] VITALS: BP 128/70; PULSE 72; RESP 15; O2SAT 100
== END 2022-09-29 03:40 | disposition home or self-care (01) ==
PROVIDERS: Emergency Provider Preventive Medicine Aerospace Medicine; PCP Internal Medicine
DX: S70.02XA Contusion of left hip, initial encounter (principal); F03.90 Unspecified dementia, unspecified severity, without behavioral disturbance, psychotic disturbance, mood disturbance, and anxiety; E78.5 Hyperlipidemia, unspecified; I10 Essential (primary) hypertension; E78.00 Pure hypercholesterolemia, unspecified; Z87.891 Personal history of nicotine dependence; W19.XXXA Unspecified fall, initial encounter
CPT/HCPCS: 70450; 72170; 99284

== ENCOUNTER 2022-09-29 15:33 | Emergency (ER) | payer OTHER, SELFPAY ==
--- NOTE | ~2022-09-29 | XR_ITS ---
EXAMINATION: XR humerus LT DATE: 09/29/2022 17:39 INDICATION: Left humerus pain. Fall. TECHNIQUE: 2 views of left humerus were obtained. COMPARISON: None. FINDINGS: Bone alignment is normal. No fracture. There is moderate osteoarthritis of glenohumeral shyam nt and acromioclavicular joint. IMPRESSION: 1. Polyarticular osteoarthritis. Reviewed, dictated and finalized at location E.
--- NOTE | ~2022-09-29 | XR_ITS ---
EXAMINATION: XR chest 2V DATE: 09/29/2022 17:38 INDICATION: Left rib pain. Fall. TECHNIQUE: Frontal and lateral views of the chest were obtained. COMPARISON: Chest 2 views 11/18/2021, CT abdomen and pelvis 10/06/2021 FINDINGS: There are chronic reticular opacities in right lower lung zone. There is a large hiatal her eligio. No pleural effusion or pneumothorax. The heart size is normal. IMPRESSION: 1. Large hiatal hernia. 2. Mild chronic interstitial lung disease. Reviewed, dictated and finalized at location E.
--- NOTE | ~2022-09-29 | XR_ITS ---
EXAMINATION: XR forearm LT 2V DATE: 09/29/2022 17:38 INDICATION: Left forearm pain. Fall. TECHNIQUE: 2 views of left forearm were obtained. COMPARISON: None. FINDINGS: Scapholunate dissociation is noted. No fracture. There is severe osteoarthritis of first ca rpometacarpal joint. IMPRESSION: 1. Scapholunate dissociation. 2. Severe osteoarthritis of first carpometacarpal joint. Reviewed, dictated and finalized at location E.
[2022-09-29 15:40] VITALS: BP 133/59; PULSE 74; RESP 18; TEMP 37.6; O2SAT 100
--- NOTE | 2022-09-29 17:12 | ED.FALL ---
HPI - Fall General Chief Complaint: Fall Stated Complaint: fall-pain in left rib Time Seen by Provider: 09/29/22 16:03 History of Present Illness HPI Narrative: 87-year-old female presented the ED for evaluation pain after ground-level fall last night. Patient was evaluated in the emergency department and had a head CT and hip x-ray. Patient's daughter continued to palpate the patient and noticed that the patient was tender left arm and left chest. Related Data Home Medications Medication Instructions Recorded Confirmed atorvastatin 20 mg tablet 20 mg PO DAILY 04/06/19 10/07/21 hydrochlorothiazide 25 mg tablet 25 mg PO DAILY 04/06/19 10/07/21 oxybutynin chloride 10 mg 10 mg PO DAILY 04/06/19 10/07/21 tablet,extended release 24 hr potassium chloride 20 mEq 20 tablet PO DAILY 10/07/21 10/07/21 tablet,extended release(part/cryst) (Klor-Con M) Allergies Allergy/AdvReac Type Severity Reaction Status Date / Time Penicillins Allergy Other Verified 09/29/22 15:34 Review of Systems Review of Systems: All systems reviewed & are unremarkable except as noted in HPI and below PMFSH Past Medical History Medical History (Updated 09/29/22 @ 17:53 by Jonatan Raymundo MD) Dementia High cholesterol HTN (hypertension) Surgical History Surgical History H/O section History of knee replacement, total left Social History Social History Social History: Lives with her daughter, Tamara Smoking status: Former smoker Tobacco type: cigarettes Alcohol intake: never Substance use: never Substance use type: former substance user Gender identity (if verbalized by the patient): Female Spiritual care concerns: No Exam Narrative: APPEARANCE: Well appearing, no pain, no distress, well-nourished. HEAD: normocephalic, atraumatic. EYES: PERRLA/EOMI, conjunctivae clear. NOSE: Normal no drainage RESPIRATORY: Airway patent, respirations nonlabored. Clear to auscultation bilaterally, no rales, rhonchi, wheezing. CARDIOVASCULAR: Regular rate and rhythm without murmurs rubs or gallops. ABDOMINAL: Soft, nontender, nondistended, normal bowel sounds MUSCULOSKELETAL: Moves all extremities. Some tenderness to left upper arm, left forearm and left lateral chest wall NEURO: Alert. Cranial nerves II through XII intact. Grossly intact SKIN: Warm, dry. Normal Color Course Course Emergency Course: 87-year-old female presenting to the ED for further evaluation after having a ground-level fall earlier this morning. Patient did have a head CT and hip x-ray this morning that were negative. Daughter was concerned because the patient had tenderness of the left arm and left chest wall. Patient was able to ambulate at her baseline and only complained of left chest wall tenderness with movement. X-rays of chest arm and forearm are ordered. These x-rays were negative for acute fracture or dislocation. Patient and family reviewed and the results of the imaging. They were encouraged with close follow-up with the primary care physician. Patient was well-appearing after discharge. Vital Signs Vital signs: Vital Signs Temperature 99.6 F 09/29/22 15:40 Pulse Rate 74 09/29/22 15:40 Respiratory Rate 18 09/29/22 15:40 Blood Pressure 133/59 L 09/29/22 15:40 Pulse Oximetry 100 09/29/22 15:40 Oxygen Delivery Room Air 09/29/22 15:40 Temperature 99.6 F 09/29/22 15:40 Pulse Rate 82 09/29/22 18:02 Respiratory Rate 18 09/29/22 15:40 Blood Pressure 132/79 09/29/22 18:02 Pulse Oximetry 99 09/29/22 18:02 Oxygen Delivery Room Air 09/29/22 15:40 MDM - Fall Imaging Data Radiologist's impression: Impressions Chest X-Ray 09/29/22 17:41 IMPRESSION: 1. Large hiatal hernia. 2. Mild chronic interstitial lung disease. Forearm X-Ray 09/29/22 17:43 IMPRESSION:
[2022-09-29 18:02] VITALS: BP 132/79; PULSE 82; O2SAT 99
== END 2022-09-29 18:14 | disposition home or self-care (01) ==
PROVIDERS: Emergency Provider Emergency Medicine; PCP Internal Medicine
DX: R07.89 Other chest pain (principal); S49.92XA Unspecified injury of left shoulder and upper arm, initial encounter; F03.90 Unspecified dementia, unspecified severity, without behavioral disturbance, psychotic disturbance, mood disturbance, and anxiety; E78.00 Pure hypercholesterolemia, unspecified; I10 Essential (primary) hypertension; Z96.652 Presence of left artificial knee joint; Z87.891 Personal history of nicotine dependence; K44.9 Diaphragmatic hernia without obstruction or gangrene; M18.9 Osteoarthritis of first carpometacarpal joint, unspecified; M19.012 Primary osteoarthritis, left shoulder; W18.30XA Fall on same level, unspecified, initial encounter
CPT/HCPCS: 71046; 73060; 73090; 99284

== ENCOUNTER 2024-02-07 16:48 | Inpatient (IN) | payer MEDICARE, OTHER, SELFPAY ==
--- NOTE | ~2024-02-07 | CT_ITS ---
CT of the Abdomen and Pelvis: Indication: Abdominal pain Technique: 2.5 mm axial scans were obtained through the abdomen and pelvis following intravenous adm inistration of 100 cc of Omnipaque 350. Dose reduction technique was used on this scan by utilizing a utomated exposure control and iterative reconstruction technique. The dose-length product (DLP) was 2 77.16 mGy-cm. COMPARISON: 10/26/2021 Findings: Scans through the lung bases demonstrate extremely large hiatal hernia, containing essenti ally entire stomach as well as multiple small bowel loops and possibly splenic flexure region of the colon. 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 The liver, spleen, pancreas, gallbladder, adrenals and kidneys are within normal limits. There are at herosclerotic calcifications of the aorta. No lymphadenopathy. There are mildly dilated fluid-filled small bowel loops.. Colonic diverticulosis noted. Small seroma or fluid-filled hernia the umbilicus. Images through the pelvis were performed. Urinary bladder unremarkable. No pelvic mass evident. Small amount of abdominopelvic ascites present. Impression: Massive hiatal hernia, as detailed above, containing stomach (with organoaxial volvulus), as well as small bowel loops and possibly splenic flexure the colon. Mildly dilated fluid-filled small bowel loops. Evaluation is difficult, but findings could reflect po ssibly small bowel obstruction versus ileus or diarrhea illness. Correlate with clinical symptomatolo gy. Reviewed, dictated and finalized at [facility]. Impression: Massive hiatal hernia, as detailed above, containing stomach (with organoaxial volvulus), as well as small bowel loops and possibly splenic flexure the colon. Mildly dilated fluid-filled small bowel loops. Evaluation is difficult, but fin dings could reflect possibly small bowel obstruction versus ileus or diarrhea i llness. Correlate with clinical symptomatology.
[2024-02-07 17:16] VITALS: BP 142/72; PULSE 91; RESP 14; TEMP 36.5; O2SAT 100
--- NOTE | 2024-02-07 17:34 | ED.ABDPAIN ---
HPI - Abdominal Pain General Chief Complaint: Abdominal Pain <Alexa Younger PA-C - Last Filed: 02/12/24 17:43> Stated Complaint: tiredness, possible hernia, decreased appetite <Alexa Younger PA-C - Last Filed: 02/12/24 17:43> Time Seen by Provider: 02/07/24 17:34 <Alexa Younger PA-C - Last Filed: 02/12/24 17:43> Focused HPI: This is a 88 year old female that presents to the ER for abdominal pain and decreased appetite. This has been ongoing today. Reports the pain is in the right side of her abdomen. Denies fever, vomiting, or diarrhea. GENERAL: Elderly, well-nourished, and in no acute distress. HEAD: Normocephalic, atraumatic. CHEST: Clear to auscultation. ?No respiratory distress. HEART: Regular rate and rhythm.? NEURO: ?Alert and oriented x3. Patient screened in triage and initial orders placed.? ?Additional care and disposition to be based upon?diagnostic testing and treatment. <Alexa Younger PA-C - Last Filed: 02/12/24 17:43> History of Present Illness HPI narrative: Patient is a 88-year-old female who presents emergency department with chief complaint of abdominal discomfort and decreased appetite. The patient reports that she started having symptoms yesterday but today got worse the patient reports she has not really been passing gas not had a bowel movement today the patient states that her abdomen feels full the family is concerned that she may have some kind of hernia <Dev Napier MD - Last Filed: 02/08/24 01:37> Related Data Home Medications: Home Medications Medication Instructions Recorded Confirmed atorvastatin 20 mg tablet 20 mg PO DAILY 04/06/19 02/08/24 sertraline 25 mg tablet 25 mg PO DAILY 02/08/24 02/08/24 <JOHNSON Baez Last Filed: 02/12/24 17:43> Allergies/Adverse Reactions: Allergies Allergy/AdvReac Type Severity Reaction Status Date / Time Penicillins Allergy Other Verified 02/08/24 02:55 <JOHSNON Baez Last Filed: 02/12/24 17:43> Review of Systems Review of Systems: A 10 system review of systems was completed on the patient and is negative except for what is stated in the HPI. Nursing and ancillary documentation was reviewed. <Dev Napier MD - Last Filed: 02/08/24 01:37> [facility] Past Medical History Medical History: Medical History (Updated 02/12/24 @ 17:43 by Alexa Younger PA-C) Dementia DJD of shoulder High cholesterol HTN (hypertension) Left shoulder pain <Alexa Younger PA-C - Last Filed: 02/12/24 17:43> Surgical History Surgical History: Surgical History History of knee replacement, total left <Alexa Younger PA-C - Last Filed: 02/12/24 17:43> Family History Family History: Family History Unknown High cholesterol <Alexa Younger PA-C - Last Filed: 02/12/24 17:43> Social History Social History: Social History Social History: Lives with her daughter, Tamara Smoking status: Former smoker Alcohol intake: never Substance use: never Do You Feel Safe in your Home?: Yes Lack of Transportation: No Lack of Food: Never True Current Housing: I Have Housing Concerned About Future Housing: No Difficulty Paying Gas/Electric Bills: No Difficulty Paying for Meds: No Currently Unemployed: No Education: Trade/Vocational Certificate Difficulty w/ Childcare or Family Care: No Occupation/Education: occupation 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 HEAD: Normocephalic, atraumatic. EYES: PERRL
--- NOTE | 2024-02-07 20:26 | ECG_ITS ---
Test Date: 2024-02-07 20:28:37 Measurements Intervals [place] Rate: 75 P: 40 MD: 195 QRS: 8 QRSD: 69 T: 53 QT: 337 QTc: 377 Interpretive Statements SINUS RHYTHM NONSPECIFIC T-WAVE ABNORMALITY No previous ECG available for comparison Electronically Signed On 02-07-2024 21:43:22 CDT by Ron Rodriguez M.D.
[2024-02-07] MEDS: SODIUM CHLORIDE 0.9% IV 1,000 ML 999 ML IV CONT (20:59)
[2024-02-07 21:01] VITALS: BP 143/79; PULSE 66; RESP 19; TEMP 36.5; O2SAT 100
[2024-02-07 21:37] LABS: Basophils Percent Auto 0.1 % (0.2-1.2); Hematocrit 46.8 % (37.0-47.0); Hemoglobin 15.4 g/dL (12.0-15.0); Immature Granulocyte Absolute 0.02 K/mm3 (0.00-0.031); Immature Granulocyte Percent A 0.2 % (0-0.5); Lymphocytes Absolute Auto 0.94 K/mm3 (0.9-3.2); Lymphocytes Percent Auto 10.2 % (18.3-44.2); Mean Corpuscular HGB Conc 32.9 g/dl (32-36); Mean Corpuscular Hemoglobin 29.2 pg (26-34); Mean Corpuscular Volume 88.8 fl (80-100); Mean Platelet Volume 10.2 fl (7.4-10.4); Monocytes Absolute Auto 0.6 K/mm3 (0.1-0.6); Monocytes Percent Auto 6.4 % (2.6-8.5); Neutrophils Absolute Auto 7.7 K/mm3 (1.3-6.7); Neutrophils Percent Auto 83.1 % (45.5-73.1); Platelet Count Result 237 k/mm3 (150-375); Red Blood Count 5.27 M/mm3 (4.2-5.4); Red Cell Distribution Width 12.9 % (11.5-14.5); White Blood Count 9.3 K/mm3 (4.5-10.0)
[2024-02-07 22:52] LABS: Add Urine Microscopic? YES; Appearance Urine Clear (Clear); Bacteria Urine None Seen /hpf; Bilirubin Urine Negative (Negative); Blood Urine Negative (Negative); Color Urine Yellow (Yellow); Glucose Urine UA Negative (Negative); Ketones Urine Trace mg/dL (Negative); Leukocyte Esterase Ur Trace LEU/UL (Negative); Need Manual Microscopic Reviewed; Nitrate Urine Negative (Negative); Protein Urine Trace mg/dL (Negative); RBC Urine 0-2 /hpf (0-2); Specific Grav Ur 1.016 (1.001-1.035); Squamous Epithelial Cell Urine Occasional /hpf (Few); Urobilinogen Urine 0.2 mg/dL (<2.0); WBC Urine 0-5 /hpf (0-3); pH Urine 5.5 (5.0-9.0)
--- NOTE | 2024-02-07 23:23 | PC.NURSE ---
This RN assumed care of pt after receiving report from SONA Mcguire
[2024-02-07 23:24] VITALS: BP 165/72; PULSE 64; RESP 19; O2SAT 98
[2024-02-07 23:29] LABS: Anion Gap 11 mmol/L (4-12); Carbon Dioxide 22 mmol/L (22-30); Chloride 104 mmol/L (98-107); Potassium 4.5 mmol/L (3.4-5.0); Sodium 137 mmol/L (137-145)
[2024-02-07 23:30] LABS: Alanine Aminotransferase 10 U/L (6-35); Albumin Level 3.7 g/dL (3.5-5.1); Alkaline Phosphatase 53 U/L (38-126); Aspartate Amino Transferase 29 U/L (14-36); Bilirubin,Total 0.7 mg/dL (0.2-1.3); Blood Urea Nitrogen 20 mg/dL (7-17); Calcium 9.8 mg/dL (8.4-10.2); Estimated Glomerular Filt Rate > 60; Glucose 97 mg/dL (65-110); Lactic Acid Reflex 3.1 mmol/L (0.7-2.0); Lipase 46 U/L (23-300)
--- NOTE | 2024-02-08 01:49 | PC.NURSE ---
This RN and SONA Tomlin attempted multiple times to obtain NG tube without success. ANITA Napier notified. No further instructions at this time.
[2024-02-08 01:51] VITALS: PULSE 66; RESP 17; O2SAT 100
[2024-02-08 02:14] LABS: Reflex Lactic Acid Yes or No Add Lactic
--- NOTE | 2024-02-08 02:56 | ADMGEN ---
This patient, Rosario Love, was admitted to 3 Med Surg Room 315-01. Patient/family oriented to hospital policies and general routines including ID bracelet, bed and alarms, visiting hours, pain management, procedures, bathroom and other care routines, personal items, smoking policy, room service/diet, and visiting hours. Information on how to activate the Rapid Response Team has been discussed. Patient/Family are encouraged to report perceived risks to care and to ask questions if they do not understand what they are told or what they should do.
[2024-02-08] MEDS: SODIUM CHLORIDE 0.9% IV 1,000 ML 100 ML IV CONT ×2 (04:12→14:00)
--- NOTE | 2024-02-08 04:22 | PM.IMHP ---
H&P: HPI History of Present Illness Date/Time: 02/08/24 04:22 Chief Complaint: Abdomen pain Narrative: Patient has dementia, cannot provide history, history is taken from patient's daughter 88 years old lady with history of hypertension, hyperlipidemia, dementia, brought to ED because of abdomen pain. Patient has been having abdomen pain since yesterday, patient has diffuse abdomen pain, poor intake due to abdomen pain. Patient was not a notice have nausea vomiting. Last bowel movement was few days ago. Patient did not have fever, chills, black stool, dysuria, chest pain, shortness breast, cough, headache, focal weakness. Patient was brought to ED for evaluation treatment, upon arrival in the ED, patient found have uncontrolled hypertension, afebrile, pulse ox 100% room air, CBC unremarkable, chemistry showed elevated BUN creatinine ratio 20/0.[address] scan of the abdomen pelvis showed a dilated small-bowel loops with a transition point the lower abdomen consistent small-bowel obstruction ER physician consulted the general surgeon We admit patient for further evaluation and management Review of Systems Review of Systems: Patient has dementia, unable to obtain medication history PMFSH Past Medical History Medical History Dementia DJD of shoulder High cholesterol HTN (hypertension) Left shoulder pain Surgical History Surgical History H/O section History of knee replacement, total left Family History Family History Unknown High cholesterol Social History Social History Social History: Lives with her daughter, Tamara Smoking status: Former smoker Alcohol intake: never Substance use: never Do You Feel Safe in your Home?: Yes Lack of Transportation: No Lack of Food: Never True Current Housing: I Have Housing Concerned About Future Housing: No Difficulty Paying Gas/Electric Bills: No Difficulty Paying for Meds: No Currently Unemployed: No Education: Trade/Vocational Certificate Difficulty w/ Childcare or Family Care: No Occupation/Education: occupation Additional 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/education 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[employer] Gender identity (if verbalized by the patient): Female Spiritual care concerns: No Meds Home Medications and Allergies Home Medications Medication Instructions Recorded Confirmed Type atorvastatin 20 mg tablet 20 mg PO DAILY 04/06/19 02/08/24 History sertraline 25 mg tablet 25 mg PO DAILY 02/08/24 02/08/24 History Allergies Allergy/AdvReac Type Severity Reaction Status Date / Time Penicillins Allergy Other Verified 02/08/24 02:55 Vital Signs Vital Signs - 24 hr 02/07/24 17:16 02/07/24 21:01 02/07/24 23:24 Temperature 97.7 F 97.7 F Pulse Rate 91 66 64 Respiratory Rate 14 19 19 Blood Pressure 142/72 H 143/79 H 165/72 H Pulse Oximetry 100 100 98 Oxygen Delivery Room Air 02/08/24 01:51 Temperature Pulse Rate 66 Respiratory Rate 17 Blood Pressure Pulse Oximetry 100 Oxygen Delivery Exam Narrative: GENERAL: Pleasant, in no acute distress. Well-nourished. - EYES: EOMI. Anicteric. - HENT: Dry mucous membranes. - LUNGS: Clear to auscultation bilaterally, no wheezing, rhonchi, or rales. - CARDIOVASCULAR: Regular rate and rhythm. No murmur. No JVD. - ABDOMEN: Soft, mid abdominal tender and non-distended. No palpable masses. - EXTREMITIES: No edema. Peripheral pulses 2+. Non-tender. - NEUROLOGIC: No focal neurological deficits. CN II-XII grossly intact. - PSYCHIATRIC: Awake, Alert and not oriented to place and time, patient knows her daughter's name. Appropriate mood and affect. - SKIN: No rashes or lesions. Warm. - LYMPH: No cervical lymphade
[2024-02-08] MEDS: SODIUM CHLORIDE 0.9% IV 1,000 ML 125 ML IV CONT (05:10)
[2024-02-08 06:00] VITALS: BP 127/76; PULSE 66; RESP 14; TEMP 37; O2SAT 100
--- NOTE | 2024-02-08 06:50 | PM.IMPN ---
Progress Note: A&P Assessment and Plan (1) Small bowel obstruction: Code(s): K56.609 - Unspecified intestinal obstruction, unspecified as to partial versus complete obstruction Status: Acute Assessment and Plan: Abdomen/pelvis CT: Mildly dilated fluid-filled small bowel loops. Evaluation is difficult, but findings could reflect possibly small bowel obstruction versus ileus or diarrhea illness. Abdomen/pelvis CT: Massive hiatal hernia, as detailed above, containing stomach (with organoaxial volvulus), as well as small bowel loops and possibly splenic flexure the colon. Patient was hospitalized for SBO from 10/07-10/11/21 which resolved resolved after water-soluble contrast small-bowel follow-through. - Monitor I&Os, vital signs, neuro status and patient is a fall risk - Monitor serum electrolytes and CBC - NG tube unable to be inserted likely due to patients large hiatal hernia - Diet: clear liquids per surgery - Gentle IV fluid resuscitation - P.r.n. Anti emetics, avoid reglan - General surgery consulted No indication for any urgent surgical intervention. Her daughter reported coughing with oral intake recently, so I will order a bedside swallow evaluation prior to starting her diet. Surgical repair of her extremely large hiatal hernia would be an extensive surgery, and given her advanced age and dementia, we would not recommend any surgical intervention unless there was an emergent indication. The patient's daughter agrees with this plan and all of her questions were answered. (2) Large hiatal hernia: Code(s): K44.9 - Diaphragmatic hernia without obstruction or gangrene Status: Chronic Assessment and Plan: See plan above for SBO #1 (3) HTN (hypertension): Code(s): I10 - Essential (primary) hypertension Status: Acute Assessment and Plan: Chronic, not on any home medications. - Monitor (4) Onychomycosis: Code(s): B35.1 - Tinea unguium Status: Acute Assessment and Plan: Patient has a fungal infection to her left great toe causing pain with movement. - Started on terbinafine - Monitor Time Spent With Patient Time with patient: 25 - 35 minutes Subjective Date/time seen: 02/08/24 06:50 Interval history: 88 year old female with past medical history of hypertension, hyperlipidemia and dementia reports to the hospital for abdominal pain and poor oral intake. Patient is pleasant lying comfortably in bed. She has no complaints, denying chest pain, shortness of breath, nausea/vomiting and abdominal pain. ED attempted NG tube placement however they were unsuccessful likely due to patients hiatal hernia. She was evaluated by surgery today and no intervention is required at this time. Patient started on clear liquid diet. Patient does note that she has pain to her left great toe which appears to be a fungal infection. Started on terbinafine. Review of Systems Review of Systems: All systems reviewed & are unremarkable except as noted in HPI and below Exam Narrative: AF HR 63 RR 14 Spo2 98 BP 157/73 General: female in no acute respiratory distress who is nontoxic appearing, lying semi recumbent in bed. HEENT: Normocephalic. Atraumatic.Extraocular movement intact. Sclera clear and anicteric. No facial asymmetry. Chest: Lungs are clear to auscultation bilaterally. No wheezes or crackles. CV: Heart was regular rate and rhythm. S1-S2. No murmurs, gallops, or rubs. Abd: Abdomen was soft. Mild tenderness to the upper abdomen without guarding. Nondistended. Positive bowel sounds. Hard mass noted above the umbilicus approximately 2x2 cm Ext: No clubbing, cyanosis, or edema. 2+ DP pulses bilaterally. Fungal infection of the left great toe with mild pain associated. Neuro: Patient is alert and oriented x3, with dementia. Cranial nerves 2-12 are intact. Speech is clear. Objective Data Vital Signs Vital Signs: Vital Signs - 24 hr 02/07/24 17:16 02/07/24 21
[2024-02-08 07:20] LABS: Lactic Acid 1.8 mmol/L (0.7-2.0)
[2024-02-08 09:24] VITALS: O2SAT 94
--- NOTE | 2024-02-08 10:41 | PM.CNGS ---
Assessment and Plan Assessment and plan (1) Small bowel obstruction: Code(s): K56.609 - Unspecified intestinal obstruction, unspecified as to partial versus complete obstruction Status: Acute Assessment and Plan: CT scan showed findings of a small bowel obstruction as well as a large hiatal hernia that contains the stomach, part of the colon, and loops of small bowel. It also showed possible organoaxial volvulus of the stomach. The patient presented with abdominal pain and poor appetite, but no vomiting. Since admission, she is no longer having any abdominal pain and still no vomiting. Will defer NG placement at this time, which would be difficult due to her hiatal hernia. She has no peritoneal signs on exam. She appears stable without any findings concerning for bowel ischemia. Clinically, she does not have any evidence of a stomach volvulus or gastric outlet obstruction. Her symptoms have resolved and she is actually hungry today. There is no indication for any urgent surgical intervention. We will let her try clear liquids today. Her daughter reported coughing with oral intake recently, so I will order a bedside swallow evaluation prior to starting her diet. I discussed our plans with the patient's daughter. We also discussed that surgical repair of her extremely large hiatal hernia would be an extensive surgery, and given her advanced age and dementia, we would not recommend any surgical intervention unless there was an emergent indication. The patient's daughter agrees with this plan and all of her questions were answered. We will continue to follow along. (2) Large hiatal hernia: Code(s): K44.9 - Diaphragmatic hernia without obstruction or gangrene Status: Chronic (3) HTN (hypertension): Code(s): I10 - Essential (primary) hypertension Status: Acute (4) High cholesterol: Code(s): E78.00 - Pure hypercholesterolemia, unspecified Status: Acute (5) Dementia: Code(s): F03.90 - Unspecified dementia, unspecified severity, without behavioral disturbance, psychotic disturbance, mood disturbance, and anxiety Status: Chronic Plan I have discussed the patient's case and plan of care with Dr. Hamilton. Thank you for allowing us to see the patient in consultation and we will continue to follow along with you. History of Present Illness Consult details Consult date: 02/08/24 Reason for consult: other (Small bowel obstruction) Requesting physician: Dev Napier MD Narrative: This is an 88-year-old woman with a PMH of hypertension, hyperlipidemia, dementia, and a very large hernia, who we have been asked to see in surgical consultation for small bowel obstruction. She was admitted in 2021 for a small bowel obstruction that was treated conservatively with NG tube decompression. At that time, she was noted to have a large hiatal hernia containing her stomach and the transverse colon, but this was not contributing to the obstruction. She has done well since discharge without any other issues. She is a poor historian and her history is obtained by review of the EMR and speaking with her daughter/POA via phone with the patient's permission. She lives at home with her daughter, who noticed 2 nights ago that she was complaining of generalized abdominal pain. Yesterday, she had poor appetite and only ate a small amount of cereal and some grapes throughout the day. She also was drinking less water than usual. No nausea, vomiting, or diarrhea. She did not have a bowel movement the past two days. Due to her symptoms, her daughter brought her in for evaluation. In the ED, vital signs were stable. Labs were significant for lactic acid of 3.1 that came down to 1.8 after IV fluids. Her WBC count was normal. CT scan of the abdomen and pelvis was initially read by the virtual Radiologist who read this as a small bowel obstruction with transition point in the lower abdomen. NG tube placement was attempted in the ED
[2024-02-08 14:00] VITALS: BP 157/73; PULSE 63; RESP 14; TEMP 36.3; O2SAT 98
--- NOTE | 2024-02-08 16:22 | PCSTNOTE ---
Please refer to the Bedside Swallow Evaluation in the EMR. Please note, silent aspiration cannot be ruled out at bedside.
[2024-02-08 22:00] VITALS: BP 100/71; PULSE 75; RESP 14; TEMP 36.6; O2SAT 98
[2024-02-08 22:48] VITALS: O2SAT 98
[2024-02-09] MEDS: SODIUM CHLORIDE 0.9% IV 1,000 ML 100 ML IV CONT (02:30)
[2024-02-09 06:00] VITALS: BP 145/68; PULSE 69; RESP 12; TEMP 36.7; O2SAT 100
[2024-02-09 07:03] LABS: Basophils Percent Auto 0.4 % (0.2-1.2); Eosinophils Percent Auto 0.6 % (0-4.4); Hematocrit 35.4 % (37.0-47.0); Hemoglobin 11.6 g/dL (12.0-15.0); Immature Granulocyte Absolute 0.02 K/mm3 (0.00-0.031); Immature Granulocyte Percent A 0.4 % (0-0.5); Lymphocytes Percent Auto 23.6 % (18.3-44.2); Mean Corpuscular HGB Conc 32.8 g/dl (32-36); Mean Corpuscular Hemoglobin 29.1 pg (26-34); Mean Corpuscular Volume 88.9 fl (80-100); Monocytes Absolute Auto 0.5 K/mm3 (0.1-0.6); Monocytes Percent Auto 9.8 % (2.6-8.5); Neutrophils Absolute Auto 3.3 K/mm3 (1.3-6.7); Neutrophils Percent Auto 65.2 % (45.5-73.1); Platelet Count Result 180 k/mm3 (150-375); Red Blood Count 3.98 M/mm3 (4.2-5.4); Red Cell Distribution Width 12.9 % (11.5-14.5); White Blood Count 5.1 K/mm3 (4.5-10.0)
--- NOTE | 2024-02-09 07:20 | PM.IMPN ---
Progress Note: A&P Assessment and Plan (1) Small bowel obstruction: Code(s): K56.609 - Unspecified intestinal obstruction, unspecified as to partial versus complete obstruction Status: Acute Assessment and Plan: Abdomen/pelvis CT: Mildly dilated fluid-filled small bowel loops. Evaluation is difficult, but findings could reflect possibly small bowel obstruction versus ileus or diarrhea illness. Abdomen/pelvis CT: Massive hiatal hernia, as detailed above, containing stomach (with organoaxial volvulus), as well as small bowel loops and possibly splenic flexure the colon. Patient was hospitalized for SBO from 10/07-10/11/21 which resolved resolved after water-soluble contrast small-bowel follow-through. - Monitor I&Os, vital signs, neuro status and patient is a fall risk - Monitor serum electrolytes and CBC - NG tube unable to be inserted likely due to patients large hiatal hernia - Diet: full liquid per surgery - Gentle IV fluid resuscitation - P.r.n. Anti emetics, avoid reglan - General surgery consulted No indication for any urgent surgical intervention. Her daughter reported coughing with oral intake recently, so I will order a bedside swallow evaluation prior to starting her diet. Surgical repair of her extremely large hiatal hernia would be an extensive surgery, and given her advanced age and dementia, we would not recommend any surgical intervention unless there was an emergent indication. The patient's daughter agrees with this plan and all of her questions were answered. (2) Large hiatal hernia: Code(s): K44.9 - Diaphragmatic hernia without obstruction or gangrene Status: Chronic Assessment and Plan: See plan above for SBO #1 (3) HTN (hypertension): Code(s): I10 - Essential (primary) hypertension Status: Acute Assessment and Plan: Chronic, not on any home medications. - Monitor (4) Onychomycosis: Code(s): B35.1 - Tinea unguium Status: Acute Assessment and Plan: Patient has a fungal infection to her left great toe causing pain with movement. - Started on terbinafine - Monitor Time Spent With Patient Time with patient: 25 - 35 minutes Subjective Date/time seen: 02/09/24 07:20 Interval history: 88 year old female with past medical history of hypertension, hyperlipidemia and dementia reports to the hospital for abdominal pain and poor oral intake. Patient is pleasant sitting up comfortably in her chair after working with therapy. She has no complaints at this time. She denies chest pain, shortness a breath, nausea/ vomiting, and abdominal pain. Patient was evaluated by surgery and diet advanced to full liquid. Patient underwent a swallow study and per speech therapy will be started on a soft and bite sized level 6 diet with regular liquids when able to advance. Review of Systems Review of Systems: All systems reviewed & are unremarkable except as noted in HPI and below Exam Narrative: AF HR 69 RR 12 SPO2 100 BP 145/68 General: female in no acute respiratory distress who is nontoxic appearing, lying semi recumbent in bed. HEENT: Normocephalic. Atraumatic.Extraocular movement intact. Sclera clear and anicteric. No facial asymmetry. Chest: Lungs are clear to auscultation bilaterally. No wheezes or crackles. CV: Heart was regular rate and rhythm. S1-S2. No murmurs, gallops, or rubs. Abd: Abdomen was soft. Mild tenderness to the upper abdomen without guarding. Nondistended. Positive bowel sounds. Hard mass noted above the umbilicus approximately 2x2 cm Ext: No clubbing, cyanosis, or edema. 2+ DP pulses bilaterally. Fungal infection of the left great toe with mild pain associated. Neuro: Patient is alert and oriented x3, with dementia. Cranial nerves 2-12 are intact. Speech is clear. Objective Data Vital Signs Vital Signs: Vital Signs - 24 hr 02/08/24 09:24 02/08/24 14:00 02/08/24 22:00 Temperature 97.4 F L 97.8 F Pulse Rate
[2024-02-09 07:24] LABS: Alanine Aminotransferase 10 U/L (6-35); Alkaline Phosphatase 48 U/L (38-126); Anion Gap 4 mmol/L (4-12); Aspartate Amino Transferase 30 U/L (14-36); Bilirubin,Total 0.6 mg/dL (0.2-1.3); Blood Urea Nitrogen 13 mg/dL (7-17); Carbon Dioxide 26 mmol/L (22-30); Chloride 108 mmol/L (98-107); Estimated Glomerular Filt Rate > 60; Glucose 91 mg/dL (65-110); Potassium 3.6 mmol/L (3.4-5.0); Sodium 138 mmol/L (137-145)
[2024-02-09] MEDS: TERBINAFINE HCL 250 MG TABLET PO (08:50)
[2024-02-09] MEDS: ACETAMINOPHEN 325 MG TABLET 650 MG PO (12:36)
[2024-02-09] MEDS: SERTRALINE HCL 25 MG TABLET PO (13:46)
[2024-02-09] MEDS: ATORVASTATIN 20 MG TABLET PO (13:47)
[2024-02-09 14:00] VITALS: BP 136/64; PULSE 70; RESP 14; TEMP 36.2; O2SAT 100
--- NOTE | 2024-02-09 15:46 | WPDPN ---
Progress Note: A&P Assessment and Plan (1) Small bowel obstruction: Code(s): K56.609 - Unspecified intestinal obstruction, unspecified as to partial versus complete obstruction Status: Acute Assessment and Plan: Patient may have had a partial small-bowel obstruction has quickly resolved. She may also had a functional ileus or gastroenteritis. In any case her abdominal pain is gone she is no longer having any nausea. She is tolerating liquids and advanced to solid food this evening. She tolerated solid food and she would discharge home tomorrow. White blood count is normal. No fever. No concern for any need for any surgical management. Subjective Date/time seen: 02/09/24 15:46 Interval history: Patient is doing well today. No nausea or abdominal pain. She tolerated clear liquids yesterday. Tolerated full liquids for lunch and 1 solid food for dinner. Exam GI: Other: Abdomen is soft and nondistended. No tenderness. Exam is benign. Objective Data Vital Signs Vital Signs: Vital Signs - 24 hr 02/08/24 22:00 02/08/24 20:00 02/08/24 22:48 Temperature 36.6 C Pulse Rate 75 Respiratory Rate 14 Blood Pressure 100/71 Pulse Oximetry 98 98 Oxygen Delivery Room Air Room Air 02/09/24 06:00 02/09/24 08:00 02/09/24 10:07 Temperature 36.7 C Pulse Rate 69 Respiratory Rate 12 Blood Pressure 145/68 H Pulse Oximetry 100 Oxygen Delivery Room Air Room Air 02/09/24 11:00 02/09/24 14:00 Temperature 36.2 C L Pulse Rate 70 Respiratory Rate 14 Blood Pressure 136/64 Pulse Oximetry 100 Oxygen Delivery Room Air Intake/Output Intake/Output: Intake & Output 02/06/24 02/07/24 02/08/24 02/09/24 23:59 23:59 23:59 23:59 Intake Total 1000 1081.7 2550 Output Total 0 Balance 1000 1081.7 2550 Meds/Results Medications: Active Medications Generic Name Dose Route Start Last Admin Trade Name Freq PRN Reason Stop Dose Admin Acetaminophen 650 mg 02/09/24 10:57 02/09/24 12:36 Acetaminophen 325 Mg Tablet PO 650 mg Q8H PRN Administration Mild Pain (1-3) or Fever Atorvastatin Calcium 20 mg 02/09/24 12:45 02/09/24 13:47 Atorvastatin 20 Mg Tablet PO 20 mg DAILY GRACE Administration Sodium Chloride 1,000 mls @ 100 mls/hr 02/08/24 01:35 02/09/24 08:47 Normal Saline Iv IV CONT Not Given .Q10H GRACE Morphine Sulfate 2 mg 02/08/24 01:33 Morphine Sulfate (*Crx) 2 Mg/Ml Inj IV PUSH Q2H PRN Pain Rated 7-10 Ondansetron HCl 4 mg 02/08/24 01:33 Ondansetron Inj 4 Mg/2 Ml Vial IV PUSH Q4H PRN Nausea Sertraline HCl 25 mg 02/09/24 12:45 02/09/24 13:46 Sertraline Hcl 25 Mg Tablet PO 25 mg DAILY GRACE Administration Terbinafine HCl 250 mg 02/09/24 09:00 02/09/24 08:50 Terbinafine Hcl 250 Mg Tablet PO 05/02/24 09:00 250 mg QAM GRACE Administration Radiology Results: ITS Impressions Abdomen/Pelvis CT 02/08/24 05:39 Impression: Massive hiatal hernia, as detailed above, containing stomach (with organoaxial volvulus), as well as small bowel loops and possibly splenic flexure the colon. Mildly dilated fluid-filled small bowel loops. Evaluation is difficult, but findings could reflect possibly small bowel obstruction versus ileus or diarrhea illness. Correlate with clinical symptomatology. Labs Labs: Laboratory Results - last 24 hr 02/09/24 06:51 WBC 5.1 RBC 3.98 L Hgb 11.6 L D Hct 35.4 L MCV 88.9 MCH 29.1 MCHC 32.8 RDW 12.9 Plt Count 180 MPV 9.0 Immature Gran % (Auto) 0.4 Neut % (Auto) 65.2 Lymph % (Auto) 23.6 Harrison % (Auto) 9.8 H Eos % (Auto) 0.6 Baso % (Auto) 0.4 Lymph # (Auto) 1.20 Harrison # (Auto) 0.5 Eos # (Auto) 0.0 Baso # (Auto) 0.0 Abs Immat Gran (auto) 0.02 Absolute Neuts (auto) 3.3 Absolute Nucleated RBC 0.000 Nucleated RBC % 0.0 Sodium 138 Potassium 3.6 Chloride 108 H Carbon Dioxide 26 Anion Gap 4 BUN 13 D Crea
[2024-02-09 21:55] VITALS: BP 113/58; PULSE 85; RESP 18; TEMP 36.4; O2SAT 99
[2024-02-10 05:34] VITALS: BP 163/74; PULSE 67; RESP 18; TEMP 36.1; O2SAT 100
[2024-02-10 06:23] LABS: Basophils Percent Auto 0.4 % (0.2-1.2); Eosinophils Percent Auto 0.6 % (0-4.4); Hemoglobin 11.4 g/dL (12.0-15.0); Immature Granulocyte Absolute 0.01 K/mm3 (0.00-0.031); Immature Granulocyte Percent A 0.2 % (0-0.5); Lymphocytes Absolute Auto 1.26 K/mm3 (0.9-3.2); Lymphocytes Percent Auto 24.1 % (18.3-44.2); Mean Corpuscular HGB Conc 31.7 g/dl (32-36); Mean Corpuscular Volume 91.6 fl (80-100); Mean Platelet Volume 9.8 fl (7.4-10.4); Monocytes Absolute Auto 0.7 K/mm3 (0.1-0.6); Monocytes Percent Auto 12.4 % (2.6-8.5); Neutrophils Absolute Auto 3.3 K/mm3 (1.3-6.7); Neutrophils Percent Auto 62.3 % (45.5-73.1); Platelet Count Result 175 k/mm3 (150-375); Red Blood Count 3.93 M/mm3 (4.2-5.4); Red Cell Distribution Width 12.9 % (11.5-14.5); White Blood Count 5.2 K/mm3 (4.5-10.0)
[2024-02-10 06:34] LABS: Alanine Aminotransferase 10 U/L (6-35); Albumin Level 2.9 g/dL (3.5-5.1); Alkaline Phosphatase 40 U/L (38-126); Anion Gap 3 mmol/L (4-12); Aspartate Amino Transferase 26 U/L (14-36); Bilirubin,Total 0.4 mg/dL (0.2-1.3); Blood Urea Nitrogen 15 mg/dL (7-17); Calcium 8.9 mg/dL (8.4-10.2); Carbon Dioxide 28 mmol/L (22-30); Chloride 108 mmol/L (98-107); Estimated CRCL calculation 33 ml/min; Estimated Glomerular Filt Rate > 60; Glucose 78 mg/dL (65-110); Potassium 3.7 mmol/L (3.4-5.0); Sodium 139 mmol/L (137-145)
--- NOTE | 2024-02-10 08:04 | PM.IMPN ---
Progress Note: A&P Assessment and Plan (1) Small bowel obstruction: Code(s): K56.609 - Unspecified intestinal obstruction, unspecified as to partial versus complete obstruction Status: Acute Assessment and Plan: Abdomen/pelvis CT: Mildly dilated fluid-filled small bowel loops. Evaluation is difficult, but findings could reflect possibly small bowel obstruction versus ileus or diarrhea illness. Abdomen/pelvis CT: Massive hiatal hernia, as detailed above, containing stomach (with organoaxial volvulus), as well as small bowel loops and possibly splenic flexure the colon. Patient was hospitalized for SBO from 10/07-10/11/21 which resolved resolved after water-soluble contrast small-bowel follow-through. - Monitor I&Os, vital signs, neuro status and patient is a fall risk - Monitor serum electrolytes and CBC - NG tube unable to be inserted likely due to patients large hiatal hernia - Diet: full liquid per surgery - Gentle IV fluid resuscitation - P.r.n. Anti emetics, avoid reglan - General surgery consulted No indication for any urgent surgical intervention. Her daughter reported coughing with oral intake recently, so I will order a bedside swallow evaluation prior to starting her diet. Surgical repair of her extremely large hiatal hernia would be an extensive surgery, and given her advanced age and dementia, we would not recommend any surgical intervention unless there was an emergent indication. The patient's daughter agrees with this plan and all of her questions were answered. - tolerating soft diet well- continue, advance as tolerated - general surgery following (2) Large hiatal hernia: Code(s): K44.9 - Diaphragmatic hernia without obstruction or gangrene Status: Chronic Assessment and Plan: See plan above for SBO #1 (3) HTN (hypertension): Code(s): I10 - Essential (primary) hypertension Status: Acute Assessment and Plan: Chronic, not on any home medications. - Monitor (4) Onychomycosis: Code(s): B35.1 - Tinea unguium Status: Acute Assessment and Plan: Patient has a fungal infection to her left great toe causing pain with movement. - Started on terbinafine - Monitor Time Spent With Patient Time with patient: Greater than 35 minutes Subjective Date/time seen: 02/10/24 08:04 Interval history: Assuming care. Patient is seen and examined. Doing well -reports no nausea or abdominal pain. She was started on clear liquids and now advanced to soft diet- low fiber, tolerating diet well. Review of Systems Review of Systems: Patient has dementia, unable to obtain medication history All systems reviewed & are unremarkable except as noted in HPI and below Exam Narrative: General: female in no acute respiratory distress who is nontoxic appearing HEENT: Normocephalic. Atraumatic.Extraocular movement intact. Sclera clear and anicteric. No facial asymmetry. Chest: Lungs are clear to auscultation bilaterally. No wheezes or crackles. CV: Heart was regular rate and rhythm. S1-S2. No murmurs, gallops, or rubs. Abd: Abdomen was soft. Positive bowel sounds. Ext: No clubbing, cyanosis, or edema. 2+ DP pulses bilaterally. Fungal infection of the left great toe with mild pain associated. Neuro: Patient is alert and oriented x3, with dementia. Cranial nerves 2-12 are intact. Speech is clear. Objective Data Vital Signs Vital Signs: Vital Signs - 24 hr 02/09/24 10:07 02/09/24 11:00 02/09/24 14:00 Temperature 97.1 F L Pulse Rate 70 Respiratory Rate 14 Blood Pressure 136/64 Pulse Oximetry 100 Oxygen Delivery Room Air Room Air 02/09/24 20:00 02/09/24 21:55 02/10/24 05:34 Temperature 97.6 F 97 F L Pulse Rate 85 67 Respiratory Rate 18 18 Blood Pressure 113/58 L 163/74 H Pulse Oximetry 99 100 Oxygen Delivery Room Air Intake/Output Intake/Output: Intake & Output 02/07/24 02/08/24 02/09/24 02/10/24 23:59 23:
[2024-02-10] MEDS: TERBINAFINE HCL 250 MG TABLET PO (08:25)
[2024-02-10] MEDS: ATORVASTATIN 20 MG TABLET PO (08:25)
[2024-02-10] MEDS: SERTRALINE HCL 25 MG TABLET PO (08:25)
--- NOTE | 2024-02-10 10:18 | WPDPN ---
Progress Note: A&P Assessment and Plan (1) Small bowel obstruction: Code(s): K56.609 - Unspecified intestinal obstruction, unspecified as to partial versus complete obstruction Status: Acute Assessment and Plan: Patient of partial obstruction. More likely her findings on CT were due to ileus versus gastroenteritis. No evidence of mechanical small bowel obstruction. She is tolerating solid food and can be discharged standpoint. She really has not had a bowel movement the couple of days. P.r.n. suppository order was written. Patient does not need to follow-up general surgery in the office after discharge. Subjective Date/time seen: 02/10/24 10:18 Interval history: Patient is doing well. She tolerated solid food for breakfast. Denies having any abdominal pain and no nausea. Does not feel bloated. Exam GI: Other: Abdomen is soft and nondistended. Completely nontender and benign. Objective Data Vital Signs Vital Signs: Vital Signs - 24 hr 02/09/24 11:00 02/09/24 14:00 02/09/24 20:00 Temperature 36.2 C L Pulse Rate 70 Respiratory Rate 14 Blood Pressure 136/64 Pulse Oximetry 100 Oxygen Delivery Room Air Room Air 02/09/24 21:55 02/10/24 05:34 02/10/24 08:00 Temperature 36.4 C 36.1 C L Pulse Rate 85 67 Respiratory Rate 18 18 Blood Pressure 113/58 L 163/74 H Pulse Oximetry 99 100 Oxygen Delivery Room Air Intake/Output Intake/Output: Intake & Output 02/07/24 02/08/24 02/09/24 02/10/24 23:59 23:59 23:59 23:59 Intake Total 1000 1081.7 2550 100 Output Total 0 Balance 1000 1081.7 2550 100 Meds/Results Medications: Active Medications Generic Name Dose Route Start Last Admin Trade Name Freq PRN Reason Stop Dose Admin Acetaminophen 650 mg 02/09/24 10:57 02/09/24 12:36 Acetaminophen 325 Mg Tablet PO 650 mg Q8H PRN Administration Mild Pain (1-3) or Fever Atorvastatin Calcium 20 mg 02/09/24 12:45 02/10/24 08:25 Atorvastatin 20 Mg Tablet PO 20 mg DAILY GRACE Administration Morphine Sulfate 2 mg 02/08/24 01:33 Morphine Sulfate (*Crx) 2 Mg/Ml Inj IV PUSH Q2H PRN Pain Rated 7-10 Ondansetron HCl 4 mg 02/08/24 01:33 Ondansetron Inj 4 Mg/2 Ml Vial IV PUSH Q4H PRN Nausea Sertraline HCl 25 mg 02/09/24 12:45 02/10/24 08:25 Sertraline Hcl 25 Mg Tablet PO 25 mg DAILY GRACE Administration Terbinafine HCl 250 mg 02/09/24 09:00 02/10/24 08:25 Terbinafine Hcl 250 Mg Tablet PO 05/02/24 09:00 250 mg QAM GRACE Administration Radiology Results: ITS Impressions Abdomen/Pelvis CT 02/08/24 05:39 Impression: Massive hiatal hernia, as detailed above, containing stomach (with organoaxial volvulus), as well as small bowel loops and possibly splenic flexure the colon. Mildly dilated fluid-filled small bowel loops. Evaluation is difficult, but findings could reflect possibly small bowel obstruction versus ileus or diarrhea illness. Correlate with clinical symptomatology. Labs Labs: Laboratory Results - last 24 hr 02/10/24 05:34 WBC 5.2 RBC 3.93 L Hgb 11.4 L Hct 36.0 L MCV 91.6 MCH 29.0 MCHC 31.7 L RDW 12.9 Plt Count 175 MPV 9.8 Immature Gran % (Auto) 0.2 Neut % (Auto) 62.3 Lymph % (Auto) 24.1 [place] % (Auto) 12.4 H Eos % (Auto) 0.6 Baso % (Auto) 0.4 Lymph # (Auto) 1.26 [place] # (Auto) 0.7 H Eos # (Auto) 0.0 Baso # (Auto) 0.0 Abs Immat Gran (auto) 0.01 Absolute Neuts (auto) 3.3 Absolute Nucleated RBC 0.000 Nucleated RBC % 0.0 Sodium 139 Potassium 3.7 Chloride 108 H Carbon Dioxide 28 Anion Gap 3 L BUN 15 Creatinine 0.90 Estim Creat Clear Calc 33 Estimated GFR > 60 Glucose 78 Calcium 8.9 Total Bilirubin 0.4 AST 26 ALT 10 Alkaline Phosphatase 40 Total Protein 6.0 L Albumin 2.9 L
--- NOTE | 2024-02-10 11:49 | PM.DS ---
DS: Admitting Diagnosis Discharge Date 02/09 Admitting Diagnosis abd pain DS: Discharge Diagnosis Discharge Diagnosis (1) Small bowel obstruction: Code(s): K56.609 - Unspecified intestinal obstruction, unspecified as to partial versus complete obstruction Status: Acute Assessment and Plan: Abdomen/pelvis CT: Mildly dilated fluid-filled small bowel loops. Evaluation is difficult, but findings could reflect possibly small bowel obstruction versus ileus or diarrhea illness. Abdomen/pelvis CT: Massive hiatal hernia, as detailed above, containing stomach (with organoaxial volvulus), as well as small bowel loops and possibly splenic flexure the colon. Patient was hospitalized for SBO from 10/07-10/11/21 which resolved resolved after water-soluble contrast small-bowel follow-through. - Monitor I&Os, vital signs, neuro status and patient is a fall risk - Monitor serum electrolytes and CBC - NG tube unable to be inserted likely due to patients large hiatal hernia - Diet: full liquid per surgery - Gentle IV fluid resuscitation - P.r.n. Anti emetics, avoid reglan - General surgery consulted No indication for any urgent surgical intervention. Her daughter reported coughing with oral intake recently, so I will order a bedside swallow evaluation prior to starting her diet. Surgical repair of her extremely large hiatal hernia would be an extensive surgery, and given her advanced age and dementia, we would not recommend any surgical intervention unless there was an emergent indication. The patient's daughter agrees with this plan and all of her questions were answered. - tolerating soft diet well- continue, advance as tolerated - general surgery following- ok to discharge from their standpoint (2) Large hiatal hernia: Code(s): K44.9 - Diaphragmatic hernia without obstruction or gangrene Status: Chronic Assessment and Plan: See plan above for SBO #1 (3) HTN (hypertension): Code(s): I10 - Essential (primary) hypertension Status: Acute Assessment and Plan: Chronic, not on any home medications. - Monitor (4) Onychomycosis: Code(s): B35.1 - Tinea unguium Status: Acute Assessment and Plan: Patient has a fungal infection to her left great toe causing pain with movement. - Started on terbinafine - Monitor DS: Summary Hospital Course Hospital Course: 88 year old female with past medical history of hypertension, hyperlipidemia and dementia reports to the hospital for abdominal pain and poor oral intake. Patient of partial obstruction. More likely her findings on CT were due to ileus versus gastroenteritis. No evidence of mechanical small bowel obstruction. She is tolerating solid food and per surgery can be discharged. She really has not had a bowel movement the couple of days- suppository order was written prn. Patient does not need to follow-up general surgery in the office after discharge.PT/OT saw her and she did fine- ok for her to safely return home. Status at Discharge Functional status at discharge: uses cane/walker Overall status at discharge: patient is progressing back to baseline Time Spent with Patient Time attestation: Total time spent providing and/or coordinating discharge services: Time spent: Greater than 30 minutes Exam Narrative: General: female in no acute respiratory distress who is nontoxic appearing HEENT: Normocephalic. Atraumatic.Extraocular movement intact. Sclera clear and anicteric. No facial asymmetry. Chest: Lungs are clear to auscultation bilaterally. No wheezes or crackles. CV: Heart was regular rate and rhythm. S1-S2. No murmurs, gallops, or rubs. Abd: Abdomen was soft. Positive bowel sounds. Ext: No clubbing, cyanosis, or edema. 2+ DP pulses bilaterally. Fungal infection of the left great toe with mild pain associated. Neuro: Patient is alert and oriented x3, with dementia. Cranial nerves 2-12 are intact. Speech is clear.
== END 2024-02-10 14:30 | disposition home or self-care (01) | DRG 390 ==
LOC: ANHED 02-08 01:37 → ANH3MEDSUR 02-08 02:51
PROVIDERS: Physician Assistant; Student in an Organized Health Care Education/Training Program; Admitting Provider Hospitalist; Emergency Provider Emergency Medicine; PCP Internal Medicine; Visit Provider Nurse Practitioner
DX: K56.609 Unspecified intestinal obstruction, unspecified as to partial versus complete obstruction (principal); E86.0 Dehydration; K44.9 Diaphragmatic hernia without obstruction or gangrene; I10 Essential (primary) hypertension; E78.00 Pure hypercholesterolemia, unspecified; B35.1 Tinea unguium; M19.012 Primary osteoarthritis, left shoulder; F03.90 Unspecified dementia, unspecified severity, without behavioral disturbance, psychotic disturbance, mood disturbance, and anxiety; Z96.652 Presence of left artificial knee joint
CPT/HCPCS: 36415; 74177; 80053; 81001; 83605; 83690; 85025; 92610; 93005; 96360; 96361; 97161; 97165; 99285; A9270; G0378; J7030; Q9967

== ENCOUNTER 2024-03-19 08:00 | Outpatient (CLI) | payer OTHER, SELFPAY ==
--- NOTE | ~2024-03-19 | US_ITS ---
EXAMINATION: US abdomen limited DATE: 03/19/2024 08:24 INDICATION: Periumbilical mass. TECHNIQUE: Multiple grayscale and Doppler ultrasound images of the abdomen were obtained. COMPARISON: CT abdomen and pelvis 02/08/2024, 10/06/21 FINDINGS: There is a chronic 2.8 x 1.8 x 3.6 cm hypoechoic mass in the umbilicus that measured fluid attenuation by CT. IMPRESSION: 1. 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 Reviewed, dictated and finalized at location A. 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
== END 2024-03-19 08:01 | disposition home or self-care (01) ==
LOC: MICIMG 08:04
PROVIDERS: PCP Internal Medicine; Visit Provider Internal Medicine
DX: R19.05 Periumbilic swelling, mass or lump (principal)
CPT/HCPCS: 76705

== ENCOUNTER 2024-07-30 11:20 | Emergency (ER) | payer OTHER, SELFPAY ==
[2024-07-30] VITALS (8 sets, daily range): BP systolic 83–190; BP diastolic 44–80; PULSE 63–81; RESP 19–23; TEMP 36.6; O2SAT 98–100
--- NOTE | ~2024-07-30 | CT_ITS ---
EXAMINATION: CT brain wo con DATE: 07/30/2024 13:08 INDICATION: Altered mental status. TECHNIQUE: Computed tomography (CT) of the head was performed without intravenous contrast. The mA wa s adjusted according to patient size. Iterative reconstruction technique was employed. The dose-lengt h product was 529.67 mGy-cm. COMPARISON: Head CT 09/29/2022 FINDINGS: There are scattered areas of low attenuation in the cerebral white matter. There is no intr acranial hemorrhage, acute infarction, or abnormal intracranial mass lesion. The ventricles are lucho l in size. There are likely changes of right ocular lens replacement surgery. The paranasal sinuses a re clear. The mastoid air cells are normal. IMPRESSION: 1. Stable moderate nonspecific cerebral white matter disease, which likely represents chronic small v essel ischemic disease. Reviewed, dictated and finalized at location A. IMPRESSION: 1. Stable moderate nonspecific cerebral white matter disease, which likely repr esents chronic small vessel ischemic disease.
--- NOTE | ~2024-07-30 | XR_ITS ---
XR chest 2V Ordering provider: Adrian Gordon MD History: 89 years Female with . left shoulder posterior pain, HTN . Comparison: September 29, 2022 FINDINGS: MEDIASTINUM: The cardiac silhouette is not enlarged. Sliding hiatus hernia. LUNGS: No effusions or pneumothorax. Opacification the left lung base suggestive of atelectasis versu s pneumonia. OTHER: No free air under the diaphragm. Degenerative changes of the spine. IMPRESSION: Sliding hiatus hernia. Left basilar atelectasis versus pneumonia. Reviewed, dictated and finalized at location A.
--- NOTE | 2024-07-30 11:24 | ECG_ITS ---
Test Date: 2024-07-30 11:32:59 Measurements Intervals Clubb Rate: 74 P: 38 PA: 196 QRS: 15 QRSD: 84 T: 64 QT: 347 QTc: 386 Interpretive Statements SINUS RHYTHM VOLTAGE CRITERIA FOR LVH [MEETS CRITERIA IN ONE OF: R(aVL), S(V1), R(V5), R(V5/V6)+S(V1)] NONSPECIFIC T-WAVE ABNORMALITY Compared to ECG 02/07/2024 20:28:37 NO SIGNIFICANT CHANGES Electronically Signed On 07-30-2024 16:44:26 CDT by Brian Hunt M.D.
--- NOTE | 2024-07-30 12:06 | PC.NURSE ---
multiple attempts by two RN's for blood draw without success. will attempt with ultrasound machine when pt returns from X-ray.
--- NOTE | 2024-07-30 12:36 | ED_ITS ---
HPI - General Adult General Chief complaint: Chest Pain Stated complaint: High BP with left shoulder pain since 0800 (190/90 Time Seen by Provider: 07/30/24 11:56 History of Present Illness HPI narrative: 89-year-old female presenting to the emergency department for evaluation for hypertension and some left shoulder pain. Patient was recently started on amlodipine but has not yet actually started taking the medication. Patient states her blood pressure usually runs in the 120s but a few weeks ago as noted to be in the 140s and today was 190. Patient was having some left-sided shoulder pain earlier but denies any current pain now. At time of evaluation patient denies any complaints. Patient does have baseline dementia and is here with her daughter. Related Data Home Medications ?Medication ?Instructions ?Recorded ?Confirmed ?Last Taken ?Type atorvastatin 20 mg tablet 20 mg PO DAILY 04/06/19 02/08/24 Unknown History sertraline 25 mg tablet 25 mg PO DAILY 02/08/24 02/08/24 Unknown History Allergies Allergy/AdvReac Type Severity Reaction Status Date / Time Penicillins Allergy Other Verified 07/30/24 11:38 Review of Systems 2 Review of Systems: All systems reviewed & are unremarkable except as noted in HPI and below PMFSH Past Medical History Medical History (Updated 07/30/24 @ 16:33 by Jonatan Raymundo MD) DJD of shoulder Left shoulder pain Dementia High cholesterol HTN (hypertension) Surgical History Surgical History History of knee replacement, total left Family History Family History Unknown High cholesterol Social History Social History Social History: Lives with her daughter, Tamara Smoking status: Former smoker Alcohol intake: never Substance use: never Do You Feel Safe in your Home?: Yes Lack of Transportation: No Lack of Food: Never True Current Housing: I Have Housing Concerned About Future Housing: No Difficulty Paying Gas/Electric Bills: No Difficulty Paying for Meds: No Currently Unemployed: No Education: Trade/Vocational Certificate Difficulty w/ Childcare or Family Care: No Occupation/Education: occupation Additional occupation/education comments: 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 EYES: PERRLA/EOMI, conjunctivae clear. NOSE: Normal no drainage EARS:TMS clear with good light reflex. THROAT: Pharynx clear, no exudate. NECK: Supple. No adenopathy, no masses. RESPIRATORY: Airway patent, respirations nonlabored. Clear to auscultation bilaterally, no rales, rhonchi, wheezing. CARDIOVASCULAR: Regular rate and rhythm without murmurs rubs or gallops. ABDOMINAL: Soft, nontender, nondistended, normal bowel sounds MUSCULOSKELETAL: Moves all extremities. Strength/ROM intact, No edema, No calf tenderness. NEURO: Alert. Cranial nerves II through XII intact. Good gait. Good coordination SKIN: Warm, dry. Normal Color Course Vital Signs Vital signs: Vital Signs Temperature 97.8 F 07/30/24 11:27 Pulse Rate 67 07/30/24 11:27 Respiratory Rate 20 07/30/24 11:27 Blood Pressure 190/78 H 07/30/24 11:27 Pulse Oximetry 98 07/30/24 11:27 Oxygen Delivery Room Air 07/30/24 11:27 Temperature 97.8 F 07/30/24 11:27 Pulse Rate 76 07/30/24 17:58 Respiratory Rate 20 07/30/24 17:58 Blood Pressure 113/59 L 07/30/24 17:58 Pulse Oximetry 100 07/30/24 17:58 Oxygen Delivery Room Air 07/30/24 11:27 Medical Decision Making [facility] Narrative Medical decision making narrative: 81-year-old female presents emergency department for evaluation for intermittent shoulder pain and hypertension. Patient is pain-free in the emergency department. Patient denies any chest pain or shortness of breath. Patient is afebrile with no leukocytosis hemoglobin of 13. INR is 1.0. No acute abnormalities on her CMP patient had negative serial troponins. Head CT was ordered due to the elevated blood pressure of [address] showed small vessel ischemic disease. Patient was treated with hydralazine IV and her home dose amlodipine. Patient's blood pressure was improved emergency department. Patient and family are comfortable plan for discharge and close follow-up Differential Diagnosis Differential Diagnosis: Hypertension, CVA, mi, urinary tract infection, acute kidney injury Vital Signs Vital Signs: Vital Signs Temperature 97.8 F 07/30/24 11:27 Pulse Rate 67 07/30/24 11:27 Respiratory Rate 20 07/30/24 11:27 Blood Pressure 190/78 H 07/30/24 11:27 Pulse Oximetry 98 07/30/24 11:27 Oxygen Delivery Room Air 07/30/24 11:27 Temperature 97.8 F 07/30/24 11:27 Pulse Rate 76 07/30/24 17:58 Respiratory Rate 20 07/30/24 17:58 Blood Pressure 113/59 L 07/30/24 17:58 Pulse Oximetry 100 07/30/24 17:58 Oxygen Delivery Room Air 07/30/24 11:27 Lab Data 07/30/24 12:34 07/30/24 12:34 Labs: Lab Results 07/30/24 07/30/24 Range/Units 12:34 15:47 WBC 5.4 (4.5-10.0) K/mm3 RBC 4.61 (4.2-5.4) M/mm3 Hgb 13.0 (12.0-15.0) g/dL Hct 40.5 (37.0-47.0) % MCV 87.9 (80-100) fl MCH 28.2 (26-34) pg MCHC 32.1 (32-36) g/dl RDW 13.2 (11.5-14.5) % Plt Count 260 (150-375) k/mm3 MPV 8.8 (7.4-10.4) fl Immature Gran % (Auto) 0.2 (0-0.5) % Neut % (Auto) 65.7 (45.5-73.1) % Lymph % (Auto) 22.8 (18.3-44.2) % [place] % (Auto) 10.3 H (2.6-8.5) % Eos % (Auto) 0.6 (0-4.4) % Baso % (Auto) 0.4 (0.2-1.2) % Lymph # (Auto) 1.24 (0.9-3.2) K/mm3 [place] # (Auto) 0.6 (0.1-0.6) K/mm3 Eos # (Auto) 0.0 (0-0.3) K/mm3 Baso # (Auto) 0.0 (0.0-0.1) K/mm3 Abs Immat Gran (auto) 0.01 (0.00-0.031) K/mm3 Absolute Neuts (auto) 3.6 (1.3-6.7) K/mm3 Absolute Nucleated RBC 0.000 (0.0-0.012) K/mm3 Nucleated RBC % 0.0 (0.0-0.2) % PT 14.0 (11.1-14.7) Seconds INR 1.0 APTT 30.0 (22.3-36.8) Seconds Sodium 139 (137-145) mmol/L Potassium 3.8 (3.4-5.0) mmol/L Chloride 103 (98-107) mmol/L Carbon Dioxide 25 (22-30) mmol/L Anion Gap 11 (4-12) mmol/L BUN 13 (7-17) mg/dL Creatinine 0.88 (0.7-1.0) mg/dL Estim Creat Clear Calc 33 ml/min Estimated GFR > 60 (59 - ) Glucose 136 H (65-110) mg/dL Calcium 10.2 (8.4-10.2) mg/dL Total Bilirubin 0.5 (0.2-1.3) mg/dL AST 22 (14-36) U/L ALT 15 (6-35) U/L Alkaline Phosphatase 60 (38-126) U/L Troponin I < 0.012 < 0.012 (0.000-0.034) ng/mL Total Protein 7.0 (6.3-8.2) g/dL Albumin 4.0 (3.5-5.1) g/dL Lipase 100 (23-300) U/L Discharge Plan Discharge Clinical Impression: HTN (hypertension) Patient Disposition: Home, Self-Care Condition: Stable Instructions: Antibiotic Form, Hypertension (ED) Additional Instructions: Take your home blood pressure medication as directed. Have close follow-up with your primary care physician. Patient Language: Latvian Prescriptions: No Action sertraline 25 mg tablet 25 mg PO DAILY atorvastatin 20 mg Tablet 20 mg PO DAILY Follow-up/Referrals: Valeria,MD Glenn [Primary Care Provider] -
[2024-07-30 12:43] LABS: Basophils Percent Auto 0.4 % (0.2-1.2); Eosinophils Percent Auto 0.6 % (0-4.4); Hematocrit 40.5 % (37.0-47.0); Immature Granulocyte Absolute 0.01 K/mm3 (0.00-0.031); Immature Granulocyte Percent A 0.2 % (0-0.5); Lymphocytes Absolute Auto 1.24 K/mm3 (0.9-3.2); Lymphocytes Percent Auto 22.8 % (18.3-44.2); Mean Corpuscular HGB Conc 32.1 g/dl (32-36); Mean Corpuscular Hemoglobin 28.2 pg (26-34); Mean Corpuscular Volume 87.9 fl (80-100); Mean Platelet Volume 8.8 fl (7.4-10.4); Monocytes Absolute Auto 0.6 K/mm3 (0.1-0.6); Monocytes Percent Auto 10.3 % (2.6-8.5); Neutrophils Absolute Auto 3.6 K/mm3 (1.3-6.7); Neutrophils Percent Auto 65.7 % (45.5-73.1); Platelet Count Result 260 k/mm3 (150-375); Red Blood Count 4.61 M/mm3 (4.2-5.4); Red Cell Distribution Width 13.2 % (11.5-14.5); White Blood Count 5.4 K/mm3 (4.5-10.0)
[2024-07-30] MEDS: hydrALAZINE HCL 20 MG/ML VIAL 10 MG IV PUSH (12:50)
[2024-07-30] MEDS: amLODIPine BESYLATE 10 MG TABLET PO (12:50)
[2024-07-30 13:00] LABS: Alanine Aminotransferase 15 U/L (6-35); Alkaline Phosphatase 60 U/L (38-126); Anion Gap 11 mmol/L (4-12); Aspartate Amino Transferase 22 U/L (14-36); Bilirubin,Total 0.5 mg/dL (0.2-1.3); Blood Urea Nitrogen 13 mg/dL (7-17); Calcium 10.2 mg/dL (8.4-10.2); Carbon Dioxide 25 mmol/L (22-30); Chloride 103 mmol/L (98-107); Estimated CRCL calculation 33 ml/min; Estimated Glomerular Filt Rate > 60; Glucose 136 mg/dL (65-110); Lipase 100 U/L (23-300); Potassium 3.8 mmol/L (3.4-5.0); Sodium 139 mmol/L (137-145)
[2024-07-30 13:12] LABS: Troponin I < 0.012 ng/mL (0.000-0.034)
--- OUTSIDE RECORDS SUMMARY | 2024-07-30 13:36 | XMS_ITS ---
Author Organization [facility] Address [address] [place], [place] [id number] Care Team Providers Care Boat Designer Name Role Phone ZACKARYReba JESUS Unavailable [phone] ValeriaGlenn Unavailable Unavailable Allergies Allergen (clinical drug ingredient) Drug/Non Drug Allergy documented on EMR Reaction Allergy Type Onset Date Status Penicillin Unknown Drug Allergy Active REASON FOR VISIT The patient had a stent placed in her leg and they will be testing the flow later. She also has finished with ID., Patient presents for at-risk foot care . The patient has painful toenails and calluses that are causing difficulty with ambulation and shoegear. The onset is gradual Medications Medication SIG (Take, Route, Frequency, Duration) Notes Start Date End Date Status Sertraline HCl 100 MG 1 tablet Orally On ce a day Active Atorvastatin Calcium 10 MG 1 tablet Oral ly Once a day Active Vital Signs Height 64 in 07/29/2024 Weight 120 lbs 07/29/2024 BMI 20.6 kg/m2 07/29/2024 Height-cm 162.56 cm 07/29/2024 Weight-kg 54.43 kg 07/29/2024 Encounters Encounter Location Date Provider Diagnosis [facility] [address] [place], [place] [id number] 07/29/2024 JESUS OLIVIER Tinea unguium B35.1 ; Acquired keratosis [keratoderma] palmaris et plantaris L85.1 ; 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, bilateral legs I70.213 ; Pain in right foot M79.671 and Pain in left foot M79.672 Assessments Encounter Date Diagnosis (ICD Code) Assessment Notes Treatment Notes Treatment Clinical Notes Section Notes 07/29/2024 Tinea unguium (ICD-10 - B35.1) Nails 1-5 Bilateral were debrided extensively with nail nippers and emery board, reducing length and girth to pink healthy tissue with any subungual debris and necrotic tissue removed 07/29/2024 Acquired keratosis [keratoderma] palmaris et plantaris (ICD-10 - L85.1) A total of 1 corns or calluses, as described in the note above, were cut and pared utilizing a #15 blade 07/29/2024 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, bilateral legs (ICD-10 - I70.213) 07/29/2024 Pain in right foot (ICD-10 - M79.671) 07/29/2024 Pain in left foot (ICD-10 - M79.672) Plan Of Treatment Treatment Notes Assessment Notes Tinea unguium Nails 1-5 Bilateral were debrided extensively with nail nippers and emery board, reducing length and girth to pink healthy tissue with any subungual debris and necrotic tissue removed Acquired keratosis [keratode rma] palmaris et plantaris A total of 1 corns or calluses, as described in the note above, were cut and pared utilizing a #15 blade Next Appt Details Follow Up: 10 - 12 weeks, Re ason: At-Risk Foot care, sooner if problems develop. Provider Name:JESUS OLIVIER, 01:20:00 PM, [address], [address], [id number], Progress Notes * Rosario SAMUELDOB:[birth year] (89 yo F)Acc No.[id number]:07/29/2024 Patient: Bahman NUNEZ Rosario STEVE Provider: Candie Olivier DPM :[id number] A ge:89 Y S ex:Female Date:07/29/2024 Address:[facility] [address] [place], [id number] Subjective: * Chief Complaints: * 1 . The patient had a stent placed in her leg and they will be testing the flow later. She also has finished with ID.. 2. Patient presents for at-risk foot care . The patient has painful toenails and calluses that are causing difficulty with ambulation and shoegear. The onset is gradual. * HPI: H PI: General care P danae presents to the office for at risk foot care. Patient states that their nails are thickened, elongated and painful. Patient states that it is aggravated by shoe gear. Onset is gradual. Patient denies being diabetic., Patient denies taking blood thinners., Date last seen by Dr. Shaw was July 2024., Initials LB. * ROS: G eneral / Constitutional: Patient denies c hills, fever, weakness, night sweats. M usculoskeletal: Patient denies c hildhood foot problems, weakness. ? P eripheral Vascular: Patient denies u lceration of feet, cold extremities. ? S kin: Patient denies u lcerations, discoloration. ? N eurologic: Patient denies b alance difficulty, confusion, difficulty speaking, dizziness. * Medical History: O pen Sores, Low blood pressure, Psychiatric Disorder. * Family History: N o Family History documented.. * Medications: T aking Atorvastatin Calcium 10 MG Tablet 1 tablet Orally Once a day , Taking Sertraline HCl 100 MG Tablet 1 tablet Orally Once a day , Medication List reviewed and reconciled with the patient * Allergies: P enicillin: Allergy. Objective: * Vitals: S hoe Size: 8.5, Wt: 120 lbs, Wt-k.43 kg, Ht: 64 in, Ht-cm: 162.56 cm, BMI: 20.6 Index, Body Surface Area: 1.57. * Examination: C onstitutional: Constitutional T he patient is awake, alert, well developed, well groomed and well nourished. D ermatologic: Skin findings: S kin is thin, atrophic and lacking pedal hair. Hypertrophic / hyperkeratotic lesion: d istal tip of the left hallux. There is a scant amount of old sanguinous material. No purulence, no active drainage, no erythema, no calor. Ulcer: T here is no evidence of ulceration noted at this time. V ascular: Dorsalis pedis pulse: 1 /4, bilateral. Posterior tibial pulse: 1 /4, bilaterally. Capillary refill: l ess than 3 seconds. Edema: N o edema, bilateral. N eurologic: Gross sensation G ross sensation is intact to light touch.? M usculoskeletal: Muscle Strength M uscle strength is 5/5 in regards to dorsiflexion, plantarflexion, inversion, and eversion in bilateral lower extremities. ? Assessment: * Assessment: 1. T inea unguium - B35.1 2 . A cquired keratosis [keratoderma] palmaris et plantaris - L85.1 3 . 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 P ain in right foot - M79.671 5 . P ain in left foot - M79.672 Plan: * Treatment: 2. A cquired keratosis [keratoderma] palmaris et plantaris Notes: A total of 1 corns or calluses, as described in the note above, were cut and pared utilizing a #15 blade * Immunizations: Immunization record has been reviewed and updated. * Follow Up: 1 0 - 12 weeks (Reason: At-Risk Foot care, sooner if problems develop.) * Billing Information: * Visit Code: * Procedure Codes: * Electronic signature of JESUS OLIVIER DPM on 07/30/2024 at 01:36 PM CDT Sign off status: Pending * Provider: Candie Olivier DPM Date: 0 07/29/2024 Generated for Prudence Zayas/Alannah on: 0 07/30/2024 01:36 PM CDT History and Physical Notes * HPI (History of Present Illness) Category Sub-Category Detail Notes Category Not es HPI General care Patient presents to the office for at risk foot care. Patient states that their nails are thickened, elongated and painful. Patient states that it is aggravated by shoe gear. Onset is gradual. Patient denies being diabetic., Patient denies taking blood thinners., Date last seen by Dr. Shaw was July 2024., Initials LB Examination Category Sub-Category Detail Notes Category Not es Dermatologic Skin findings: Skin is thin, at rophic and lacking pedal hair Hypertrophic / hyperkeratotic lesion: di stal tip of the left hallux. There is a scant amount of old sanguinous material. No purulence, no active drainage, no erythema, no calor Ulcer: There is no evidence of ulceration noted at this time Neurologic Gross sensation Gross sensation is intact to light touch Vascular Dorsalis pedis pulse: 1/4, bilateral Edema: No edema, bilateral Capillary refill: less than 3 seconds Posterior tibial pulse: 1/4, bilaterally Musculoskeletal Muscle Strength Muscle strength is 5/5 in regards to dorsiflexion, plantarflexion, inversion, and eversion in bilateral lower extremities Constitutional Constitutional The patient is a wake, alert, well developed, well groomed and well nourished
--- OUTSIDE RECORDS SUMMARY | 2024-07-30 13:36 | XMS_ITS | Continuity of Care Document ---
Author Organization [facility] Address [address] [place] [address] [place] [address] Phone Care Team Providers Care Jewelry Sorter Name Role Phone Dominic Padilla MD Unavailable Unavailable Allergies, Adverse Reactions, Alerts Substance Reaction Status Criticality No Known Allergies Active No Inform ation Medications Medication Instructions Dosage Effective Dates (start - stop) Status Comments Pepcid 20 mg tablet take 1 tablet by ora l route every day 20 MG - Active Procedures Procedure Date OFFICE/OUTPATIENT VISIT, EST OFFICE/OUTPATIENT VISIT, EST PREV VISIT, EST, 65 & OVER OFFICE/OUTPATIENT VISIT, EST OFFICE/OUTPATIENT VISIT, EST OFFICE/OUTPATIENT VISIT, EST PREV VISIT, EST, 65 & OVER OFFICE/OUTPATIENT VISIT, EST OFFICE/OUTPATIENT VISIT, EST OFFICE/OUTPATIENT VISIT, EST PREV VISIT, NEW, 65 & OVER OFFICE/OUTPATIENT VISIT, NEW Advance Directives Directive Yes / No Effective Date File Name No Information Encounters Encounter Description Practice Location Reason(s) For Visit Diagnoses Date Provider Providers Copied on Encounter [facility], [address], [address], [place] tel:[phone] [facility] No Information 3 Randy Alfaro. [address], [place], [address] , [place]. tel:[phone] OFFICE/OUTPA TIENT VISIT, [facility], [address], [place], [place], [address], [place] tel:[phone] [facility] HTN (chief complaint) kcl (chief complaint) HLP (chief complaint) GERD1 (chief complaint) anemia1 (chief complaint) weight loss1 (chief complaint) Mixed hyperlipidemiaEssen tial (primary) hypertensionHypokal emiaAnemiaAbnormal weight lossGERD w/o esophagitis 3 Padilla Dominic. [address], [place], [place], [address] , [place]. tel:[phone] OFFICE/OUTPA TIENT VISIT, [facility], [address], [place], [place], [address], [place] tel:[phone] [facility] HLP (chief complaint) kcl (chief complaint) dizziness1 (chief complaint) GERD1 (chief complaint) GERD w/o esophagitisHypokale miaEssential (primary) hypertensionMixed hyperlipidemia Jan- 2 Randy Dominic. [address], [place], [place], [address] , [place]. tel:[phone] PREV VISIT, EST, 65 & OVER [facility], [address], [place], [place], [address], [place] tel:[phone] [facility] dizziness1 (chief complaint) OAB (chief complaint) SBO (chief complaint) renal (chief complaint) weight loss1 (chief complaint) GERD w/o esophagitisOrthosta tic hypotensionOveracti ve bladderHypokalemiaE ssential (primary) hypertensionIntesti nal obstructionRenal diseaseEncounter for general adult medical exam w abnormal findings 2 Randy Alfaro. [address], [place], [place], [address] , [place]. tel:[phone] OFFICE/OUTPA TIENT VISIT, [facility], [address], [place], [place], [address], [place] tel:[phone] [facility] HTN (chief complaint) renal (chief complaint) weight loss1 (chief complaint) Overactive bladderEssential (primary) hypertensionHypokal emiaOrthostatic hypotensionRenal disease 1 Randy Hopkins [address], [place], [place], [address] , [place]. tel:[phone] OFFICE/OUTPA TIENT VISIT, [facility], [address], [place], [place], [address], [place] tel:[phone] [facility] HTN (chief complaint) HLP (chief complaint) OAB (chief complaint) arm pain1 (chief complaint) mole (chief complaint) Nevus, non-neoplasticEssen tial (primary) hypertensionOveract ace bladderHyperlipidem iaPain in unspecified upper armHypokalemia 1 Randy Hopkins [address], [place], [place], [address] , [place]. tel:[phone] PREV VISIT, EST, 65 & OVER [facility], [address], [place], [place], [address], [place] tel:[phone] [facility] Medicine physical (chief complaint) Encounter for general adult medical exam w abnormal findingsVenous insufficiencyEssent ial (primary) hypertensionHyperli pidemiaOveractive bladder Aug- 1 Randy Hopkins [address], [place], [place], [address] , [place]. tel: [phone] OFFICE/OUTPA TIENT VISIT, [facility], [address], [place], [place], [address], [place] tel:[phone] [facility] HTN (chief complaint) OAB (chief complaint) HLP (chief complaint) edema1 (chief complaint) HyperlipidemiaOvera ctive bladderEssential (primary) hypertensionEdema Sep-0 0 Randy Hopkins [address], [place], [place], [address] , [place]. tel:[phone] OFFICE/OUTPA TIENT VISIT, [facility], [address] [place], [place], [address], tel:[phone] [facility] HTN (chief complaint) low KCL (chief complaint) low D (chief complaint) OAB (chief complaint) HLP (chief complaint) murmur1 (chief complaint) Cardiac murmurOveractive bladderEssential (primary) hypertensionEdemaHy pokalemiaVitamin D deficiency, unspecifiedHyperlip idemiaRenal disease 0 4-202 0 Randy Alfaro. [address], [address] , . tel:[phone] PREV VISIT, NEW, 65 & OVER [facility], [address] [place], [place], [address], tel:[phone] [facility] Medicine physical (chief complaint) Encounter for general adult medical exam w abnormal findingsEssential (primary) hypertensionOveract ace bladderEdemaCardiac murmur 0-202 0 Randy Alfaro. [address], [place], [address] , [place]. [phone] Family History Family Member Type Diagnosis Age At Onset Sister Problem (finding) Seizure disorder Sister Problem (finding) Alzheimer's disease Mother Problem (finding) of unknown age and reason Sister Problem (finding) Father Problem (finding) of unknown age and cause Payers Payer name Insurance type Covered libertarian ID Authoriza tion(s) No Information Social History Type Description Quantity Date Captured Comments Alcohol Use Details Unknown Caffeine Use Details Unknown Tobacco Use Status No Information Smoking Status No Information Sex Female Chief Complaint And Reason For Visit No Information Plan Of Treatment Date Type Action Status Goal Tobacco cessation counseling completed Referral Ordered: Brandon Das -Allopathic & Osteopathic Physicians : Surgery (related to Nevus, non-neoplastic) ordered Referral Referred To: Brandon Das [address], [id number] Ordered: Referrals: Allopathic & Osteopathic Physicians : Surgery. Brandon Das. Evaluate and treat ordered Referral Ordered: US VENOUS DOPPLER BILATERAL ordered Referral Ordered: DXA BONE DENSITY, AXIAL ordered Referral Ordered: MAMMOGRAM, SCREENING ordered Referral Ordered: DOPPLER ECHO EXAM, HEART ordered History Of Present Illness Encounter Date Complaint History Of Prese nt Illness HTN Pt has history o f HTn but she felt some dizziness while on irbesartan and she has been off irbesartan for a while and she no longer feels dizziness. her bp is ok today kcl Pt has history o f low kcl. Pt takes kcl. Pt denies any chest pain or palpitation. Her KCL has been ok during her recent lab from hospital. Pt wants to stop kcl HLP Pt has HLP Pt meza s been taking lipitor for many years. Pt denies any myalgia. Pt wants to get off lipitor. GERD1 Pt has intermitt ent GERD. pt takes pepcid and doing ok. Pt denies any GERD or abd pain or any dysphagia. Pt does have large HH anemia1 Pt was slightly anemic during recent lab work from hospital Pt denies any blood loss. Pt denies any dizziness, chest pain, sob or headache weight loss1 Pt has been losi ng weight. Pt states that her appetite is good Pt denies any early satiety, nausea, vomiting, change of bowel, etc. GERD1 Pt has chronic G ERd. Pt is on pepcid now and she is doing ok Pt denies any GERD or abd pain or nausea, vomiting dizziness1 Pt stopped irbes erica/hctz and her bp is around 130/60 at home. Pt no longer feels dizziness. kcl Pt has chronic l ow kcl. Pt takes kcl orally Pt denies any chest pain or palpitation HLP Pt has HLP. Pt t akes lipitor. Pt denies any myalgia weight loss1 Pt has been losi ng weight due to GERD and HH. Pt denies any early satiety, GI bleeding, etc. Pt has slightly loss of appetite due doing better with protonix renal Her renal functi on and GFR was stable and normal in hospital with IV fluid. Pt was mildly anemic toward discharge SBO Pt recently went to hospital for SBO. Pt has large hiatal hernia and she was told the SBO is due to HH. pt does have intermittent GERD and she was started protonix by hospital MD. pt denies any abd pain, nausea, vomiting Pt had NG decompression while in hospital and SBO resolved. She also had some Bowel rest and her SBO resolved. Pt currently denies any abd pain, nausea, vomiting Pt has been having daily BM and she is passing gas. Pt has normal appetite Pt denies any abd pain dizziness Pt has intermitt ent dizziness and orthostasis Pt is still taking irbesartan/hctz. Pt was told to stop irbesartan/hctz 6 months ago but she is still taking it until last week. Her bp is ok without irbesartan/hctz OAB Pt has history o f OAB and she has been taking oxybutynin and she supposes to stop oxybutynin 6 months ago but she is still taking it. Pt denies any urinary symptoms weight loss1 Pt has been losi ng weight for the past several months Pt denies any appetite loss, nausea, vomiting, early satiety, abd pain. Daughter states that she has been working on diet and weight control. renal Pt has stage III renal disease Pt has normal UO. Pt denies any flank pain. Pt denies any urinary symptoms Pt did have mild urinary urgency and frequency in the past and she has been taking oxybutynin for a while . HTN Pt has HTN. Pt t akes irbesartan/hctz and she states that her bp is around 130/70 at home but sometimes she feels very fatigue when she stand up and she has to sit down per daughter. Daughter states that she feels frequent fatigue feeling in the morning when she first gets up and her bp is around 90/60 sometimes when her daughter checks her bp during the fatigue episodes. Pt denies any chest pain or headache Pt denies any sob or syncope. mole Pt notices mold on both breast and right armpit area for 3 months. Pt denies any bleeding arm pain1 Pt has been sitt ing on sofa with cushion behind her back and she tends to use both of her arm holding her weight on sofa for a while. Pt denies any injury or neck pain Pt denies any radiculopathy. Pt c/o mild pain both upper arm area. Pt denies any redness or warmth both upper arm Pt denies any axillary nodule or pain OAB Pt has OAB. Pt t akes oxybutynin and her symptoms are well controlled. Pt denies any dysuria, urinary urgency and frequency HLP Pt has HLP Pt ta kes lipitor. Pt denies any myalgia. HTN Pt has HTN. Pt t akes irbesartan/hctz and her bp is stable at home. He takes kcl daily physical Pt needs annual physical. pt has OAB .Pt takes oxybutynin and doing ok. Pt denies any urinary urgency and frequency. Pt has HLP ,Pt takes lipitor Pt denies any myalgia. Pt has mild LE dependent edema and also HTN. Pt takes irbesartan/hctz and her bp is stable. pt overall feels well. Pt states that she notices bilateral calf pain for two weeks. Pt denies any swelling, recent travel or bedrest. Pt denies any chest pain or sob. Pt denies any other complaints. Pt denies any redness or warmth of both leg edema1 Pt has lower ext remity edema. Pt has not had any edema since off Norvasc. Pt denies any sob HLP Pt has HLP .Pt t akes lipitor Pt denies any myalgia OAB Pt has OAB. Pt d oing ok with oxybutynin. Pt denies any dysuria, urinary frequency and urgency HTN Pt has HTN. Pt t akes irbesartan/hctz and KCL. Her bp is around 130/70. Pt denies any chest pain or headache. murmur1 Pt has cardiac m urmur ,Pt denies any chest pain or sob Pt had benign cardiac echo HLP Pt has HLP Pt ta manjits lipitor pt denies any myalgia. Her lipid profile is ok OAB Pt has OAB Pt de nies any UTI symptoms Pt needs oxybutynin refilled. low D Pt has low D pt has not done bone density yet. Pt denies any fx low KCL Pt has low KCL. Pt used to take kcl. Pt denies any chest pain or palpitation HTN Patient has been taking irbesartan hydrochlorothiazide and her blood pressure stable. Her edema also resolved. Patient has been off amlodipine and hydrochlorothiazide. Pt denies any chest pain or sob physical Pt needs annual physical ,Pt has HTN ,Pt takes norvasc, HTTZ. Her bp is borderline high. Pt has chronic LE edema. Pt denies any sob or chest pian. Pt has OAB. Pt takes oxybutynin and doing ok. Pt denies any dysuria. Pt also takes iron for unknown reason. PT denies any h/o anemia. Pt denies any other complaints Instructions Date Instruction Additional Infor mation No Information Assessments Type Assessment Date No Information
--- OUTSIDE RECORDS SUMMARY | 2024-07-30 13:36 | XMS_ITS | Encounter Summary ---
Author Organization [facility] Address [address] [place] [address] Care Team Providers Care Salt Washer Harvesting Station Name Role Phone Glenn Shaw MD Primary Care Provider [phone] Gautam Soto MD Unavailable Reason for Visit * Reason Onset Date Comments Appointment Request 07/26/2024 Encounter Details Date Type Department Care Team (Latest Contact Info) Description 07/26/2024 PISTIS Consult Message Enc [facility] [place] [address] [place] [address] [address] [place] [address] Glenn Shaw MD [address] [facility] [address] [place], [place] [id number] Sending amlodipine to help with your blood pressure Social History Tobacco Use Types Packs/Day Years Used Date Smoking Tobacco: Former Cigarettes Smokeless Tobacco: Never Comments:Counseled by Dr Millie garza Alcohol Use Standard Drinks/Week Comments Not Currently 0 (1 standard drink = 0.6 oz pur e alcohol) PHQ-2 Answer Date Recorded Patient Health Questionnaire-2 Score 0 07/26/2024 Comments No Sex and Gender Information Value Date Recorded Sex Assigned at Female 06/18/2024 9: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 Also has pain in left arm upper back. After speaking with Dr. Shaw pt is to go to the ER and fiber picker Amlodipine rx * Janae eMndes MA - 07/30/2024 10:02 AM CDT Pts daughter had questions about amlodipine I informed her it is a Calcium channel winnie for Highblood pressure. The daughter v/u. Pt is scheduled for August 09 due to availability documented in this encounter Plan of Treatment Upcoming Encounters Date Type Department Care Team (Late st Contact Info) Description 08/09/2024 8:20 AM CDT Allied Health/Nurse Visit [facility] - [place] [address] [address] [place] [address] Glenn Shaw MD [address] [facility] [address] [place] [address] 09/13/2024 8:00 AM CDT Office Visit [facility] - [place] [address] [place], [place] [address] Shaji Hopper MD [address] [place] [address] 10/18/2024 1:00 PM CDT Appointment [facility] [place] [address] Gautam Soto MD [address] [facility]. [address] [place], [place] [id number] 07/17/2025 1:45 PM CDT Office Visit [facility] [facility] [address] [place], [place] [address] Gautam Soto MD Three [facility]. [address] [place] [address] documented as of this encounter Visit Diagnoses Not on filedocumented in this encounter Additional Health Concerns Assessment Noted Time PHQ-9 Depression Total Score: 0 07/27/19 25 7:11 PM CDT documented as of this encounter Care Teams [employer] Relationship Specialty Start Date End Date Glenn Shaw MD [address] [facility] [address] [place] [address] PCP - General INTERNAL MEDICINE 05/23/22 [place] [address] [place] [address] Referring Physician VASCULAR SURGERY 04/15/24 04/15/25 documented as of this encounter
--- OUTSIDE RECORDS SUMMARY | 2024-07-30 13:36 | XMS_ITS ---
Author Organization [facility] Address [address] [place], [place] [address] Care Team Providers Care Manager Proposal Name Role Phone JESUS OLIVIER Unavailable [phone] Valeria Glenn Unavailable Unavailable Encounters Encounter Location Date Provider Diagnosis [facility] [address] [place], [place] [id number] 04/23/2024 JESUS OLIVIER Plan Of Treatment Next Appt Details Provider Name:JESUS OLIVIER, 01:20:00 PM, [address], [place], [place], [id number], Progress Notes * Rosario SAMUELDOB:[birth year] (88 yo F)Acc No.[id number]:04/23/2024 Patient: Bahman NUNEZ Rosario STEVE :1935 A ge:88 Y S ex:Female Address:[address] [place] [address] * true * Date: Generated for Indioi matthew/Jaxon/eTransmitting on: 0 07/30/2024 01:36 PM CDT
--- OUTSIDE RECORDS SUMMARY | 2024-07-30 13:36 | XMS_ITS ---
Author Organization [facility] Address [address] [place], [place] [address] Care Team Providers Care Toe Closing Machine Tender Name Role Phone CHARLINE JESUS Unavailable [phone] ValeriaGlenn Unavailable Unavailable Allergies Allergen (clinical drug ingredient) Drug/Non Drug Allergy documented on EMR Reaction Allergy Type Onset Date Status Penicillin Unknown Drug Allergy Active REASON FOR VISIT The patient was placed on oral antibiotics from ID service. The patient is going to have a stent placed in her left leg to help blood flow next month. She is being treated at wound care clinic and they noted that there is something going on with her toenail Medications Medication SIG (Take, Route, Frequency, Duration) Notes Start Date End Date Status Atorvastatin Calcium 10 MG 1 tablet Oral ly Once a day Active Sertraline HCl 100 MG 1 tablet Orally On ce a day Active Encounters Encounter Location Date Provider Diagnosis [facility] [address] [place], [place] [id number] 05/20/2024 JESUS OLIVIER Other acute osteomyelitis, left ankle and foot M86.172 ; Onycholysis L60.1 and Atherosclerosis of [place] arteries of extremities with intermittent claudication, bilateral legs I70.213 Assessments Encounter Date Diagnosis (ICD Code) Assessment Notes Treatment Notes Treatment Clinical Notes Section Notes 05/20/2024 Other acute osteomyelitis, left ankle and foot (ICD-10 - M86.172) Continue Infectious Disease and Wound clinics recommendations 05/20/2024 Onycholysis (ICD-10 - L60.1) The left hallux toenail was debrided to where the toenail was well-attached to the nail bed 05/20/2024 Atherosclerosis of [place] arteries of extremities with intermittent claudication, bilateral legs (ICD-10 - I70.213) Continue Vascular's recommendations with stent placement Plan Of Treatment Treatment Notes Assessment Notes Other acute osteomyelitis, l eft ankle and foot Continue Infectious Disease and Wound clinics recommendations Onycholysis The left hallux toen ail was debrided to where the toenail was well-attached to the nail bed Atherosclerosis of [place] ar teries of extremities with intermittent claudication, bilateral legs Continue Vascular's recommendations with stent placement Next Appt Details Follow Up: 2 Months, Reason: toenail follow-up Provider Name:JESUS OLIVIER, 01:20:00 PM, [address], [address], [id number], Progress Notes * Rosario SAMUELDOB:[birth year] (88 yo F)Acc No.[id number]:05/20/2024 Patient: Bahman NUNEZ Rosario STEVE Provider: Candie Olivier DPM :1935 A ge:88 Y S ex:Female Date:05/20/2024 Address:[facility] [address] [place], [facility] Subjective: * Chief Complaints: * T he patient was placed on oral antibiotics from ID service. The patient is going to have a stent placed in her left leg to help blood flow next month. She is being treated at wound care clinic and they noted that there is something going on with her toenail * HPI: H PI: New Complaint E stablished patient presents with a new complaint., Patient complains of an issue to a possible infection under the left great toenail. The wound clinic said that the bone infection is possibly under the toenail. Patient states she got her blood flow work done, she is at 30% on the left side. , [facility]: [facility]. * ROS: G eneral / Constitutional: Patient denies c hills, fever, weakness, night sweats. M usculoskeletal: Patient denies c hildhood foot problems, weakness. ? P eripheral Vascular: Patient denies u lceration of feet, cold extremities. ? S kin: Patient denies u lcerations, discoloration. ? N eurologic: Patient denies b alance difficulty, confusion, difficulty speaking, dizziness. * Medical History: * Surgical History: * Hospitalization/Major Diagno stic Procedure: * Medications: T akingAtorvastatin Calcium 10 MG Tablet 1 tablet Orally Once a day Sertraline HCl 100 MG Tablet 1 tablet Orally Once a day Medication List reviewed and reconciled with the patientTaking Atorvastatin Calcium 10 MG Tablet 1 tablet Orally Once a day Taking Sertraline HCl 100 MG Tablet 1 tablet Orally Once a day Medication List reviewed and reconciled with the patient * Allergies: P enicillin: Allergyno[Allergies Verified] Objective: * Vitals: * Examination: C onstitutional: Constitutional T he patient is awake, alert, well developed, well groomed and well nourished. D ermatologic: Skin findings: S kin is thin, atrophic and lacking pedal hair. Nail pathology: t he left hallux toenail is lytic with macerated skin plantar to it. Post debridement, the nail bed appears healthy with no active drainage. Ulcer: T here is no evidence of [...] lower extremities. ? Assessment: * Assessment: 1. O nycholysis - L60.1 (Primary) 2 . O ther acute osteomyelitis, left ankle and foot - M86.172 3 . 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 O ther acute osteomyelitis, left ankle and foot Notes: Continue Infectious Disease and Wound clinics recommendations 3. 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 * Procedure Codes: * ICAL SUPPORT NURSE Sign off status: Completed true * Provider: Candie Olivier DPM Date: 0 05/20/2024 Generated for Prudence castro/Jaxon/Alannah on: 0 07/30/2024 01:36 PM CDT History and Physical Notes * HPI (History of Present Illness) Category Sub-Category Detail Notes Category Not es HPI New Complaint Established marquez ent presents with a new complaint., Patient complains of an issue to a possible infection under the left great toenail. The wound clinic said that the bone infection is possibly under the toenail. Patient states she got her blood flow work done, she is at 30% on the left side. , MA: [facility] Examination Category Sub-Category Detail Notes Category Not es Dermatologic Skin findings: Skin is thin, at rophic and lacking pedal hair Nail pathology: the left hallux toen ail is lytic with macerated skin plantar to it. Post debridement, the nail bed appears healthy with no active drainage Ulcer: There is no evidence of ulceration [...]
--- OUTSIDE RECORDS SUMMARY | 2024-07-30 13:36 | XMS_ITS | Encounter Summary ---
Author Organization [facility] Address [facility] [place] [address] Care Team Providers Care Production Support Consultant Name Role Phone Glenn Shaw MD Primary Care Provider [phone] Gautam Soto MD Unavailable Encounter Details Date Type Department Care Team (Late Contact Info) Description 05/10/2024 Prep for Procedure [facility], [facility] [address] [place], [place] [id number] Gautam Soto MD [facility]. [facility] [address] [place], [place] [id number] Social History Tobacco Use Types Packs/Day Years Used Date Smoking Tobacco: Former Cigarettes Smokeless Tobacco: Never Comments:Counseled by Dr Millie garza Alcohol Use Standard Drinks/Week Comments Not Currently 0 (1 standard drink = 0.6 oz pur e alcohol) PHQ-2 Answer Date Recorded Patient Health Questionnaire-2 Score 2 04/24/2023 Comments No Sex and Gender Information Value Date Recorded Sex Assigned at Female 06/18/2024 9:16 AM SEARCH ENGINE MARKETING STRATEGIST Legal Sex Female 8:17 AM SEARCH ENGINE MARKETING STRATEGIST Gender Identity Female 07/26/2024 1:24 PM CDT Sexual Orientation Straight 07/26/2024 1: 24 PM CDT documented as of this encounter Plan of Treatment Upcoming Encounters Date Type Department Care Team (Late st Contact Info) Description 08/09/2024 8:20 AM CDT Allied Health/Nurse Visit [facility] Medical Group Multispecialty Care - [place] [address] [place] [address] [address] [place] [address] Glenn Shaw MD [address] [facility] [address] [place] [address] 09/13/2024 8:00 AM CDT Office Visit [facility] Medical Group Orthopedic & Sports Medicine - [place] [address] [place] [address] Shaji Hopper MD [address] [place] [address] 10/18/2024 1:00 PM CDT Appointment [facility] [place] [address] [place] [address] Gautam Soto MD Three [facility]. [facility] [address] [place] [address] 07/17/2025 1:45 PM CDT Office Visit [facility] THREE [facility], [facility] [address] [place], [place] [address] Gautam Soto MD Three [facility]. [facility] [address] [place] [address] documented as of this encounter Visit Diagnoses Not on filedocumented in this encounter Additional Health Concerns Assessment Noted Time PHQ-9 Depression Total Score: 3 04/24/20 23 3:32 PM SEARCH ENGINE MARKETING STRATEGIST documented as of this encounter Care Teams Production Support Consultant Relationship Specialty Start Date End Date Glenn Shaw MD [address] [facility] [address] [place] [address] PCP - General INTERNAL MEDICINE 05/23/22 [place] [address] [place] [address] Referring Physician VASCULAR SURGERY 04/15/24 04/15/25 documented as of this encounter
--- OUTSIDE RECORDS SUMMARY | 2024-07-30 13:36 | XMS_ITS | Clinical Summary ---
Author Organization [facility] Address [address] [place] [address] Care Team Providers Care Hse Manager Name Role Phone Glenn Shaw MD Primary Care Provider [phone] Gautam Soto MD Unavailable Allergies Active Allergy Reactions Criticality Noted Date Comments Penicillins Unknown 04/24/2023 Medications acetaminophen CR (TYLENOL 8 HOUR) 650 MG Tab CR 8 hr tabletIndications: Acute pain of left shoulder Take 1 tablet (650 mg total) by mouth 2 (two) times daily as needed. 60 tablet 04/24/20 23 Active BLOOD PRESSURE CUFF, DME,Indications:El evated blood pressure reading Use daily to check BP and keep a log. 1 Device 05/22/19 24 Active Blood Glucose Monitoring Suppl KitIndications:Hyp oglycemia Use to check blood sugars daily as needed. 1 kit 09/25/19 24 Active Lancets MiscIndications:Hy poglycemia Use daily to check blood sugar. 100 each 11 09/25/19 24 Active Blood Gluc Meter Disp-Strips (BLOOD GLUCOSE METER DISPOSABLE) DeviceIndications: Hypoglycemia Use daily to check blood sugar. 100 each 09/25/19 24 Active sertraline (ZOLOFT) 25 MG tabletIndications: Mild episode of recurrent major depressive disorder Take 1 tablet (25 mg total) by mouth daily. 90 tablet 1 07/27/19 25 Active nystatin (MYCOSTATIN) powderIndications: Tinea corporis Apply topically 2 (two) times daily. Apply to the affected rash in the lower abdomen. 60 g 2 07/27/19 25 Active famotidine (PEPCID) 20 MG tabletIndications: Gastroesophageal reflux disease without esophagitis Take 1 tablet (20 mg total) by mouth 2 (two) times daily as needed for Heartburn. 180 tablet 1 07/27/19 25 Active Cholecalciferol (VITAMIN D3) 50 MCG (1999) CapIndications:Vit hernandez D deficiency Take 1 capsule by mouth daily. 90 capsule 1 07/27/19 25 Active atorvastatin (LIPITOR) 10 MG tabletIndications: Mixed hyperlipidemia Take 1 tablet (10 mg total) by mouth nightly at bedtime. 90 tablet 1 07/27/19 25 Active amLODIPine (NORVASC) 5 MG tabletIndications: Primary hypertension Take 1 tablet (5 mg total) by mouth daily. 90 tablet 1 07/27/19 25 Active nystatin (MYCOSTATIN) powderIndications: Tinea corporis Apply topically 2 (two) times daily. Apply to the affected rash in the lower abdomen. 60 g 2 04/24/20 23 025 Discontinu ed(Reorder ) famotidine (PEPCID) 20 MG tabletIndications: Gastroesophageal reflux disease without esophagitis Take 1 tablet (20 mg total) by mouth 2 (two) times daily as needed for Heartburn. 180 tablet 07/24/19 24 025 Discontinu ed(Reorder ) Cholecalciferol (VITAMIN D3) 50 MCG (1999 [place]) CapIndications:Vit hernandez D deficiency TAKE 1 CAPSULE BY MOUTH DAILY. 90 capsule 1 10/18/19 24 025 Discontinu ed(Reorder ) atorvastatin (LIPITOR) 10 MG tabletIndications: Mixed hyperlipidemia TAKE 1 TABLET BY MOUTH EVERYDAY AT BEDTIME 90 tablet 1 03/24/20 24 025 Discontinu ed(Reorder ) sertraline (ZOLOFT) 25 MG tabletIndications: Mild episode of recurrent major depressive disorder TAKE 1 TABLET (25 MG TOTAL) BY MOUTH DAILY. 30 tablet 04/22/20 24 025 Discontinu ed(Reorder ) DRESSING GAUZE 4 X4 PADS, DME,Indications:Wo und infection Use daily for wound dressing 1 Package 4 04/29/20 24 025 Discontinu ed(Discont inued by another clinician) sertraline (ZOLOFT) 100 MG tablet daily. 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 07/22/2023 Stage 3b chronic kidney disease 06/03/2022 Gastroesophageal reflux disease without esophagi tis 05/23/2022 MDD (major depressive disorder) 05/23/2022 Encounters Date Type Department Care Team Description 07/26/2024 1:00 PM CDT Office Visit [facility] Medical [facility] Multispecialty Care - [address] [place] [address] Glenn Shaw MD Physical (Referral to a different specialist for arm pain) 07/26/2024 - 07/26/2024 11:59 PM CDT Hospital [facility] [address] Glenn Shaw MD Discharge Disposition: Home or Self Care (Routine Discharge) 07/26/2024 MyChart Message Enc [facility] [place] [address] [facility] [address] [place] [address] Glenn Shaw MD Sending amlodipine to help with your blood pressure 07/26/2024 Travel 07/18/2024 3:15 PM CDT Office Visit [facility] [address] [address] Gautam Soto MD Peripheral Vascular Disease 07/18/2024 Orders Only [facility] [place] [address] [place] [address] Gautam Soto MD 07/18/2024 [facility] [place] [address] [address] [place] [address] Glenn Shaw MD Referral 07/18/2024 Travel 06/18/2024 9:21 AM SENIOR UNDERWRITER - 06/18/2024 2:16 PM SENIOR UNDERWRITER Hospital Encounter [facility] [place] [address] Gautam Soto MD Discharge Disposition: Home or Self Care (Routine Discharge) 06/18/2024 9:20 AM SENIOR UNDERWRITER Hospital Encounter [facility] [place] [address] Gautam Soto MD Discharge Disposition: Home or Self Care (Routine Discharge) 06/18/2024 Travel 06/18/2024 Orders Only [facility] [place] [address] Gautam Soto MD 05/22/2024 Telephone [place] [address] [address] [place] [address] Glenn Shaw MD Lab Results 05/20/2024 [facility] [place] [address] [address] [place] [address] Glenn Shaw MD 05/10/2024 Prep for Procedure [facility] THREE [facility], [place] [address] [place] [address] Gautam Soto MD 05/10/2024 Orders Only [facility] THREE [facility], [facility] [address] [place] [address] Gautam Soto MD 05/09/2024 1:30 PM SENIOR UNDERWRITER Office Visit [facility] THREE [facility], [address] [address] Gautam Soto MD Peripheral Vascular Disease 05/09/2024 Travel from Last 3 Months Immunizations Name Administration Dates Next Due Fluad influenza vaccine, Nate drivalent (aIIV4), Inactivated, adjuvanted, preservative free, 0.5 mL,IM use 02/13/2020 Fluzone High Dose (IIV, trivalent, 0.5mL) 2023 Fluzone High Dose - >Age 65 (Prefilled Syringe) 02/13/2020 Pneumococcal (Prevnar 20) 04/29/2024 Social History Tobacco Use Types Packs/Day Years Used Date Smoking Tobacco: Former Cigarettes Smokeless Tobacco: Never Tobacco Cessation:Counseling Given: Yes Comments:Counseled by Dr Shaw Alcohol Use Standard Drinks/Week Comments Not Currently 0 (1 standard drink = 0.6 oz pur e alcohol) PHQ-2 Answer Date Recorded Patient Health Questionnaire-2 Score 0 07/26/2024 Comments No Sex and Gender Information Value Date Recorded Sex Assigned at Female 06/18/2024 9:16 AM SENIOR UNDERWRITER Legal Sex Female 8:17 AM SENIOR UNDERWRITER Gender Identity Female 07/26/2024 1:24 PM CDT Sexual Orientation Straight 07/26/2024 1: 24 PM CDT Last Filed Vital Signs Vital Sign Reading Time Taken Comments Blood Pressure 160/81 07/26/2024 2:08 PM CDT Pulse 76 07/26/2024 1:24 PM CDT Temperature 36.6 C (97.9 F) 07/26/2024 1:24 PM CDT Respiratory Rate 18 07/26/2024 1:24 PM CDT Oxygen Saturation 98% 07/26/2024 1:24 PM CDT Inhaled Oxygen Concentration - - Weight 56.9 kg (125 lb 6.4 oz) 07/26/2024 1:24 P M CDT Height 157.5 cm (5' 2 ) 07/26/2024 1:24 PM CDT Body Mass Index 22.94 07/26/2024 1:24 PM CDT Plan of Treatment Upcoming Encounters Date Type Department Care Team (Late st Contact Info) Description 08/09/2024 8:20 AM CDT Allied Health/Nurse Visit [facility] Medical Group Multispecialty Care - [place] [address] [facility] [address] [place] [address] Glenn Shaw MD [address] [facility] [address] [place] [address] 09/13/2024 8:00 AM CDT Office Visit [facility] Medical Group Orthopedic & Sports Medicine - [place] [address] [place] [address] Shaji Hopper MD [address] [place] [address] 10/18/2024 1:00 PM CDT Appointment [facility] [place] [address] Gautam Soto MD Three [facility]. [facility] [address] [place] [address] 07/17/2025 1:45 PM CDT Office Visit [facility] THREE [facility], [address] [place] [address] Gautam Soto MD Three [facility]. [facility] [address] [place], [place] [address] Health Maintenance Due Date Last Done Comments DTaP, Tdap and Td Vaccines ( 1 - Tdap) 1955 Zoster Vaccines (1 of 2) 1986 RSV Immunization or 60+ Years (1 - 1-dose 75+ series) 2011 COVID-19 Vaccine ( - 2023-2 5 season) 2024 ASCVD LDL 07/23/2024 07/24/2023, 06/03/2022 Influenza Adult Completed 02/23/2024, 02/13/2020, 02/13/2020 Pneumococcal Vaccine: 65+ Years Completed 04/29/2024 PHQ-2 (Physician [place]) Completed 07/26/2024 Meningococcal B Vaccine Aged Out No l onger eligible based on patient's age to complete this topic Meningococcal Vaccine Aged Out No ezekiel myles eligible based on patient's age to complete this topic RSV Immunizations Under 20 Months Aged Out No longer eligible b ased on patient's age to complete this topic Procedures Procedure Name Priority Date/Time Associated Diagnosis Comments URINE BACTERIA CULTURE Routine 07/26/2024 4:43 PM CDT Annual physical exam General medical exam Drug therapy COLLECTION VENOUS BLOOD VENIPUNCTURE Routine 07/26/2024 1:58 PM CDT Annual physical exam General medical exam Drug therapy URINALYSIS AUTO DIP Routine 07/26/2024 Increased urinary frequency PROTHROMBIN TIME, VENOUS Routine 06/18/2024 9:38 AM SENIOR UNDERWRITER Peripheral vascular disease CBC W/DIFF AUTOMATED Routine 06/18/2024 9:38 AM SENIOR UNDERWRITER Peripheral vascular disease BASIC METABOLIC PANEL Routine 06/18/2024 9:38 AM SENIOR UNDERWRITER Peripheral vascular disease BASIC METABOLIC PANEL Routine 05/23/2024 1:58 PM SENIOR UNDERWRITER Abnormal laboratory test result BASIC METABOLIC PANEL Routine 05/20/2024 12:08 PM SENIOR UNDERWRITER LIPID PANEL Routine 07/24/2023 12:49 PM CDT Annual physical exam General medical exam from Last 3 Months or Most Recently Relevant to Health Maintenance Results * URINE BACTERIA CULTURE (07/26/2024 4:43 PM CDT) SPEC DESCRIPTION URINE CLEAN CATCH 07/26/2024 4:43 PM CDT [facility] SPECIAL REQUESTS NO SPECIAL REQUEST 07/26/2024 4:43 PM CDT [facility] CULTURE RESULT FEW CONTAMINANTS 07/07 10:27 AM CDT [facility] URINE SPECIMEN OBTAINED BY CLEAN CATCH PROCEDURE / Unknown 07/26/2024 4:43 PM CDT 07/26/2024 8:55 PM CDT Glenn Shaw MD MICROBIOLOGY - GENERAL ORDERABLE S Final Result Performing Organization Address City/[facility]/ZIP Co de Phone Number [facility] [address] [place] [address], [phone] * URINALYSIS AUTO DIP (07/26/2024) COLOR (U) YELLOW YELLOW [address], [place] TRANSPARENCY CLEAR CLEAR MG[address], [place] GLUCOSE (U) NEGATIVE NEGATIVE MG/DL MG-[address], [place] BILIRUBIN (U) NEGATIVE NEGATIVE MG-[address], [place] KETONES MG/DL (U) NEGATIVE NEGATIVE MG/DL MG-[address], [place] SPECIFIC GRAVITY (U) 1.005 1.001 - 1.035 MG[address], [place] BLOOD (U) NEGATIVE NEGATIVE MG-[address], [place] U PH 6.0 5.0 - 9.0 MG-[address], [place] PROTEIN (U) NEGATIVE NEGATIVE mg/dL MG-[address], [place] UROBILINOGEN 0.2 0.2 - 1.0 EU/dL = mg/dL MG-[address], [place] NITRITES NEGATIVE NEGATIVE MG/DL MG-[address], [place] LEUKOCYTES (U) NEGATIVE NEGATIVE MG-[address], [place] URINE SPECIMEN OBTAINED BY CLEAN CATCH PROCEDURE / Unknown 07/26/2024 us Glenn Shaw MD URINE ORDERABLES Final Result [address], [place] [address] [place] [address], * PROTIME/INR, VENOUS (06/18/2024 9:38 AM SENIOR UNDERWRITER) PROTIME 11.8 10.2 - 12.9 SEC 06/18/2024 10:06 AM [facility] INR 1.0 06/18/2024 10:06 AM [facility] Comment: Recommended INR Therapeutic Goals: 2.0-3.0 Routine Therapy 2.5-3.5 Mechanical Prosthetic Valves (High Risk) 06/18/2024 9:38 AM SENIOR UNDERWRITER Gautam Soto MD LABORATORY Final Result [facility] [address] [place] [address], [place] [phone] * (ABNORMAL) BASIC METABOLIC PANEL (06/18/2024 9:38 AM SENIOR UNDERWRITER) Only the most recent of3 resultswithin the time period is included. GLUCOSE 75 70 - 99 MG/DL 06/18/2024 10:16 AM [facility] BUN 15 7 - 18 MG/DL 06/18/2024 10:16 AM [facility] CREATININE S/P/B 0.96 0.55 - 1.02 MG/DL 06/18/2024 10:16 AM [facility] SODIUM S/P/B 139 136 - 145 MMOL/L 06/18/2024 10:16 AM [facility] POTASSIUM S/P/B 3.8 3.5 - 5.1 MMOL/L 06/18/2024 10:16 AM [facility] CHLORIDE S/P/B 107 97 - 115 MMOL/L 06/18/2024 10:16 AM [facility] CO2 26.7 21 - 32 MMOL/L 06/18/2024 10:16 AM [facility] CALCIUM S/P/B 10.4(H) 8.5 - 10.1 MG/DL 06/18/2024 10:16 AM [facility] ANION GAP 5.3 2 - 10 MMOL/L 06/18/2024 10:16 AM [facility] BUN CREATININE RATIO 15.6 6 - 26 06/18/2024 10:16 AM [facility] GFR ESTIMATE 57(L) >90 ML/MIN/1.7 3 M2 06/18/2024 10:16 AM [facility] Comment: NOTE: eGFR is not calculated for patients <18 years of age or gender unknown. This is an estimated GFR calculation using the new CKD EPI creatinine equation without race and so does not require a correction factor for race. This estimated GFR should not be used for calculating drug doses. 06/18/2024 9:38 AM SENIOR UNDERWRITER Gautam Soto MD LABORATORY Final Result [facility] [address] [place] [address], [place] [phone] * (ABNORMAL) CBC W/DIFF AUTOMATED (06/18/2024 9:38 AM SENIOR UNDERWRITER) WBC 4.61 4.5 - 11.0 x10'3/uL 06/18/2024 9:49 AM [facility] RBC 4.85 4.20 - 5.40 x10'6/uL 06/18/2024 9:49 AM [facility] HGB 13.7 12.0 - 16.0 G/DL 06/18/2024 9:49 AM [facility] HCT 43.4 38.0 - 48.0 % 06/18/2024 9:49 AM [facility] MCV 89.5 81.0 - 99.0 FL 06/18/2024 9:49 AM [facility] MCH 28.2 27.0 - 31.0 PG 06/18/2024 9:49 AM [facility] MCHC 31.6(L) 32.0 - 36.0 G/DL 06/18/2024 9:49 AM [facility] RDW 14.0 11.5 - 14.5 % 06/18/2024 9:49 AM [facility] PLT 229 130 - 400 x10'3/uL 06/18/2024 9:49 AM [facility] MPV 9.3 9.3 - 12.2 FL 06/18/2024 9:49 AM [facility] DIFFERENTIAL TYPE AUTOMATED DIFFERENTIAL 06/18/2024 9:49 AM [facility] NEUTROPHILS % 57.6 % 06/18/2024 9:49 AM [facility] LYMPHOCYTES % 33.2 % 06/18/2024 9:49 AM [facility] MONOCYTES % 7.6 % 06/18/2024 9:49 AM [facility] EOSINOPHILS 0.9 % 06/18/2024 9:49 AM [facility] BASOPHILS 0.7 % 06/18/2024 9:49 AM [facility] IMMATURE GRANS % 0.0 % 06/18/19 9:49 AM [facility] ABS. NEUTROPHILS 2.66 1.80 - 7.70 x10'3/uL 06/18/2024 9:49 AM [facility] ABS. LYMPHOCYTES 1.53 1.00 - 4.80 x10'3/uL 06/18/2024 9:49 AM [facility] ABS. MONOCYTES 0.35 0.24 - 0.86 x10'3/uL 06/18/2024 9:49 AM SENIOR UNDERWRITER [facility] ABS. EOSINOPHILS 0.04 0.04 - 0.36 x10'3/uL 06/18/2024 9:49 AM SENIOR UNDERWRITER [facility] ABS. BASOPHILS 0.03 0.01 - 0.08 x10'3/uL 06/18/2024 9:49 AM SENIOR UNDERWRITER [facility] ABS. IMMATURE GRANULOCYTES 0.00 0.00 - 0.49 x10'3/uL 06/18/2024 9:49 AM SENIOR UNDERWRITER [facility] 06/18/2024 9:38 AM SENIOR UNDERWRITER Gautam Soto MD LABORATORY Final Result [facility] [address] [place] [address], * LIPID PANEL (07/24/2023 12:49 PM CDT) CHOLESTEROL 191 <200 MG/DL 07/25/2023 10:49 AM CDT -[facility] TRIGLYCERIDES 54 <150 MG/DL 07/25/2023 10:49 AM CDT -[facility] HDL 81 >40 MG/DL 07/25/2023 10:49 AM CDT [facility] LDL-C 99 <100 MG/DL 07/25/2023 10:49 AM CDT [facility] VLDL CALCULATION 11 5 - 28 MG/DL 07/25/2023 10:49 AM CDT [facility] CHOL/HDL RATIO 2.4 0.0 - 4.0 07/25/2023 10:49 AM CDT [facility] LDL/HDL 1.2 0.41 - 2.13 07/25/2023 10:49 AM CDT 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
--- OUTSIDE RECORDS SUMMARY | 2024-07-30 13:37 | XMS_ITS | Patient Health Record ---
Author Organization [facility] Address [address] [place], [place] [id number] Care Team Providers Care Quarrying Manager Name Role Phone JESUS OLIVIER Unavailable [phone] Glenn Shaw Unavailable Unavailable JESUS REBOLLAR Unavailable [phone] Allergies Allergen (clinical drug ingredient) Drug/Non Drug Allergy documented on EMR Reaction Allergy Type Onset Date Status Penicillin Unknown Drug Allergy Active Reason For Referral No Information Medications Medication SIG (Take, Route, Frequency, Duration) Notes Start Date End Date Status Sertraline HCl 100 MG 1 tablet Orally On ce a day Active Atorvastatin Calcium 10 MG 1 tablet Oral ly Once a day Active Immunizations Vaccine Route Administration Date Status Comme nts Influenza, high dose seasonal Unknown 02/19/2024 Refuse d Pneumococcal conjugate PCV 13 Unknown 02/19/2024 Refuse d Vital Signs Height-cm 162.56 cm 07/29/2024 Weight-kg 54.43 kg 07/29/2024 Height 64 in 07/29/2024 Weight 120 lbs 07/29/2024 BMI 20.6 kg/m2 07/29/2024 Encounters Encounter Location Date Provider Diagnosis [facility] [address] [place], [place] [id number] 07/29/2024 JESUS OLIVIER Tinea unguium B35.1 ; Acquired keratosis [keratoderma] palmaris et plantaris L85.1 ; 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, bilateral legs I70.213 ; Pain in right foot M79.671 and Pain in left foot M79.672 [facility] [address] [place], [place] [id number] 02/19/2024 JESUS SNOOK Chronic osteomyeliti s with draining sinus, left ankle and foot M86.472 ; Other acute osteomyelitis, left ankle and foot M86.172 ; 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, bilateral legs I70.213 and Left foot pain M79.672 [facility] [address] [place] [id number] 05/20/2024 JESUS SNOOK Other acute osteomyelitis, left ankle and foot M86.172 ; Onycholysis L60.1 and 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, bilateral legs I70.213 [facility] [place] [id number] [facility] [address] [place], [place] [id number] 02/20/2024 JESUS SNOOK [facility] [address] [facility] [address] [place], [place] [id number] 04/08/2024 JESUS SNOOK [facility] [place] [address] [place], [place] [id number] 04/23/2024 JESUS SNOOK Assessments Encounter Date Diagnosis (ICD Code) Assessment Notes Treatment Notes Treatment Clinical Notes Section Notes 02/19/2024 Other acute osteomyelitis, left ankle and foot (ICD-10 - M86.172) 02/19/2024 Chronic osteomyelitis with draining sinus, left ankle and foot (ICD-10 - M86.472) Infection Protocol: Patient instructed to observe foot for signs and symptoms of infection, including but not limited to: increased redness and warmth to the area, increased drainage from the area, foul odor, and/or presence of fever/chills/nause a/vomiting. If patient experiences any of the above they are to call the office immediately, if someone is not present in the office then proceed to the nearest ER. I would recommend she be evlauted and treated by Infectious Disease for potential IV antibiotics. Since she is not having systemic signs and the surruonding tissue is not erythematous or purulent, incision and drainage and/or amputation is not needed urgently. I would prefer a nonsurgical approach given the patients age, circulation, and kidney status 05/20/2024 Onycholysis (ICD-10 - L60.1) The left hallux toenail was debrided to where the toenail was well-attached to the nail bed 05/20/2024 Other acute osteomyelitis, left ankle and foot (ICD-10 - M86.172) Continue Infectious Disease and Wound clinics recommendations 07/29/2024 Tinea unguium (ICD-10 - B35.1) Nails 1-5 Bilateral were debrided extensively with nail nippers and emery board, reducing length and girth to pink healthy tissue with any subungual debris and necrotic tissue removed 02/19/2024 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, bilateral legs (ICD-10 - I70.213) 05/20/2024 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, bilateral legs (ICD-10 - I70.213) Continue Vascular's recommendations with stent placement 07/29/2024 Acquired keratosis [keratoderma] palmaris et plantaris (ICD-10 - L85.1) A total of 1 corns or calluses, as described in the note above, were cut and pared utilizing a #15 blade 02/19/2024 Left foot pain (ICD-10 - M79.672) 07/29/2024 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, bilateral legs (ICD-10 - I70.213) 07/29/2024 Pain in right foot (ICD-10 - M79.671) 07/29/2024 Pain in left foot (ICD-10 - M79.672) Plan Of Treatment Next Appt Details Provider Name:JESUS OLIVIER, 01:20:00 PM, [address], [facility], [place], [place], [id number], Insurance Providers Payer Name Payer Address Payer Phone Subscriber Number Group Number Insured Name Patient Relationship to Insured Coverage Start Date Coverage End Date [employer] [address] [place] [phone] [id number] Rosario Samuel Self - patient is the insured Medical (General) History Medical History History ICD Code Open Sores low blood pressure Psychiatric Disorder
--- OUTSIDE RECORDS SUMMARY | 2024-07-30 13:37 | XMS_ITS | Referral Summary ---
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) (Primary Dx); Moderate dementia with mood disturbance, unspecified dementia type (HCC); Obesity, morbid (HCC); Stage 3b chronic kidney disease (HCC) from Last 3 Months Allergies Active Allergy Reactions Criticality Noted Date Comments Penicillins Unknown 02/13/2024 Medications atorvastatin (LIPITOR) 10 mg tablet Take 1 tablet (10 mg total) by mouth daily 4 Active cholecalciferol (VITAMIN D-3) 2000 unit capsule Take 1 capsule (2,000 Units total) by mouth daily 4 Active nystatin powder Apply topically 2 (two) times a day 3 Active sertraline (ZOLOFT) 25 mg tablet Take 1 tablet (25 mg total) by mouth daily 4 Active mupirocin (BACTROBAN) 2 % ointment APPLY TOPICALLY 2 TIMES DAILY NEEDED. 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 She has completed 8 weeks po doxycycline several weeks ago. Wound appears to be healed, unable to express fluid to the area at this time. Plans for revascularization on 06/18/24. Will hold off on additional antibiotics at this time. Continue close follow-up with podiatry. Follow-up if wound reopens, new drainage, or if podiatry has further concerns. Moderate dementia with mood disturbance, unspecified dementia type 05/29/2024 Obesity, morbid 05/29/2024 Stage 3b chronic kidney disease 05/29/2024 Age-related cataract of left eye 02/13/2024 Social History Tobacco Use Types Packs/Day Years Used Date Smoking Tobacco: Never Assessed Comments Unknown Sex and Gender Information Value Date Recorded Sex Assigned at Not on file Legal Sex Female 7:46 PM CLINIC CLERK Gender Identity Not on file Sexual Orientation Not on file Last Filed Vital Signs Vital Sign Reading Time Taken Comments Blood Pressure - - Pulse - - Temperature 36.1 C (97 F) 03/21/2024 1:54 PM CLINIC CLERK Respiratory Rate - - Oxygen Saturation - - Inhaled Oxygen Concentration - - Weight 54 kg (119 lb) 05/23/2024 12:18 PM CLINIC CLERK Height 97.3 cm (3' 2.31 ) 05/23/2024 12:18 PM CS T Body Mass Index 57.02 05/23/2024 12:18 PM CLINIC CLERK Plan of Treatment Not on file Insurance [facility] MEDICARE Address: [facility] [id number] [place] [phone] [employer] MED[employer] [facility] MEDICARE Address: [facility] [id number] [place] [phone] Care Teams Account Resolution Analyst Relationship Specialty Start Date End Date Glenn Shaw MD [address] [place], [place] [id number] PCP - General Internal Medicine 02/13/24 Dominic Padilla MD Family Medicine 01/17/24 Raina Eric MD [address] [place] [address] DR [address] [address] Internal Medicine 06/19/19
--- OUTSIDE RECORDS SUMMARY | 2024-07-30 13:37 | XMS_ITS | Data Portability ---
Author Organization [facility] [place] Address [address] [place] [address] Assessment No assessment recorded. Plan of Treatment Reminders Order Date Submit Date Provider Last Modified By Organization Details Last Modified Time Details Appointments None recorded. Lab urinalysis , dipstick 2022 [facility]23 [facility] [place], [facility] [address], [address], [place], [address], 3 13:41:33 Referral None recorded. Procedures None recorded. Surgeries None recorded. Imaging US, pelvis 2022 023 [email or web address] [place], [facility] [address], [address], [place], [address], 3 21:11:54 Medication Orders Macrobid 100 mg capsule 2022 023 [facility] [address] [address] [facility], [address], [place], [address], 3 13:58:32 Patient TargetsNo targets recorded. Patient InstructionsNo instructions recorded. Reason for Referral None Reported. Results Created Date Observation Date Name Description Value Unit Range Abnormal Flag Note LastModifiedBy Organization Detail LastModifiedTime 05/19/1905/19/2022 CULTU RE: URINE result report SEE RESULT S BELOW abnormal Test: Cultu re: Urine Speci men Sourc e: Urine Voide d Speci men Type: Urine Speci men Date: 2022 3:11 PM Resul t Date: 2022 6:36 AM Resul t Statu s: Final resul t Antonio mal: Yes Lisa martell Lab: [facility] [address] [facility] [address] Tel: [phone] CULTU RE ----- ----- ----- --- >100, 000 CFU/m l Esche darryl a coli (Abno rmal) SUSCE PTIBI LITY ----- ----- ----- --- Esche darryl a coli METHO D POONAM ----- ----- ----- ----- ----- ---- ----- ----- ----- ----- ----- AMIKA ELLIE <=16 ug/mL Susce ptibl e AMPIC ILLIN >16 ug/mL Resis tant AMPIC ILLIN /SULB ACTAM >16 ug/mL Resis tant AZTRE ONAM <=4 ug/mL Susce ptibl e CEFAZ LAVINIA <=2 ug/mL Susce ptibl e CEFEP RENAE <=2 ug/mL Susce ptibl e CEFOX ITIN <=8 ug/mL Susce ptibl e CEFTA ZIDIM E <=1 ug/mL Susce ptibl e CEFTR IAXON E <=1 ug/mL Susce ptibl e CIPRO FLOXA ELLIE <=1 ug/mL Susce ptibl e GENTA MICIN <=1 ug/mL Susce ptibl e LEVOF LOXAC IN <=0.2 5 ug/mL Susce ptibl e MEROP ENEM <=1 ug/mL Susce ptibl e NITRO FURAN TOIN <=32 ug/mL Susce ptibl e PIPER ACILL IN/TA ZOBAC EASTON <=4 ug/mL Susce ptibl e TOBRA MYCIN <=1 ug/mL Susce ptibl e TRIME THOPR IM/KIRKLAND LFAME THOXA ZOLE <=2 ug/mL Susce ptibl e Not Available [facility] (Lab) [address], [place], [address], 05/22/2022 07:39:05 05/19/19 23 05/19/2022 urina lysis , dipst ick Leukocytes 2+ Not Available [facility] [address], [place], [address], 05/19/2022 13:37:42 05/19/19 23 05/19/2022 urina lysis , dipst ick Nitrite + Not Available [place] [address], [place], [address], 05/19/2022 13:37:42 05/19/19 23 05/19/2022 urina lysis , dipst ick Urobilinogen neg Not Available [facility] kevin [address], [place], [address], 05/19/2022 13:37:42 05/19/19 23 05/19/2022 urina lysis , dipst ick Protein 3+ Not Available [place] [address], [place], [address], 05/19/2022 13:37:42 05/19/19 23 05/19/2022 urina lysis , dipst ick pH 6 Not Available [place] [address], [place], [address], 05/19/2022 13:37:42 05/19/19 23 05/19/2022 urina lysis , dipst ick Blood +++ Not Available [place] [address], [place], [address], 05/19/2022 13:37:42 05/19/19 23 05/19/2022 urina lysis , dipst ick Specific Mcloud 1.000 Not Available [facility] [address], [place], [address], 05/19/2022 13:37:42 05/19/19 05/19/2022 urina lysis , dipst ick Ketone neg Not Available [place] [address], [place], [address], 05/19/2022 13:37:42 05/19/19 23 05/19/2022 urina lysis , dipst ick Bilirubin neg Not Available [facility] [address], [place], [address], 05/19/2022 13:37:42 05/19/19 23 05/19/2022 urina lysis , dipst ick Glucose neg Not Available [place] [address], [place], [address], 05/19/2022 13:37:42 05/19/19 23 05/19/2022 urina lysis , dipst ick Appearance dk cloudy Not Available [place] [address], [place], [address], 05/19/2022 13:37:42 05/19/19 23 05/19/2022 urina lysis , dipst ick Color dk yellow Not Available [place] [address], [place], [address], 05/19/2022 13:37:42 05/27/19 23 05/27/2022 , ramonita s No observ ation record ed. [email or web address] [place] [address], [place], [address], 05/27/2022 17:34:01 05/27/19 23 05/27/2022 , ramonita s No observ ation record ed. [email or web address] [address], [place], [address], 06/02/2022 09:32:02 06/27/19 23 2022 , ramonita s No observ ation record ed. [email or web address] [address], [place], [address], 2022 22:34:29 Result Notes None recorded. Procedures Surgical History None recorded. Imaging Results Imaging Date Name Status LastModified by Organiz ation Details LastModified Time 05/27/2022 US, pelvis completed [email or web address] [place] [address], [place], [address], 05/27/2022 17:34:01 05/27/2022 US, pelvis completed [email or web address] [address], [place], [address], 06/02/2022 09:32:02 2022 US, pelvis completed [email or web address] [address], [place], [address], 2022 22:34:29 Procedure Notes None recorded. Medical Equipment None Reported. Allergies No known drug allergies Medications Name Sig Start Date Stop Date Status Note LastModified by Organization Details LastModified Time atorvastatin 20 mg tablet TAKE 1 TABLET BY MOUTH EVERY DAY active Not Available Not Available No t Available irbesartan 150 mg-hydrochloro thiazide 12.5 mg tablet TAKE 1 TABLET BY MOUTH EVERY DAY active Not Available Not Available No t Available atorvastatin 10 mg tablet TAKE 1 TABLET BY MOUTH EVERYDAY AT BEDTIME active Not Available Not Available No t Available oxybutynin chloride ER 10 mg tablet,extende d release 24 hr TAKE 1 TABLET BY MOUTH EVERY DAY active Not Available Not Available No t Available famotidine 20 mg tablet TAKE 1 TABLET BY MOUTH EVERY DAY active Not Available Not Available No t Available pantoprazole 40 mg tablet,delayed release TAKE 1 TABLET BY MOUTH EVERY MORNING FOR 4 WEEKS. active Not Available Not Available No t Available sertraline 25 mg tablet active Not Available Not Available No t Available Klor-Con M20 mEq tablet,extende d release TAKE 1 TABLET BY MOUTH EVERY DAY WITH FOOD active Not Available Not Available No t Available nitrofurantoin monohydrate/ma crocrystals 100 mg capsule TAKE 1 CAPSULE BY MOUTH EVERY 12 HOURS FOR 7 DAYS active Not Available Not Available No t Available Vitals Date Recorded Body height Body mass index (BMI) Body weight Systolic blood pressure Diastolic blood pressure Provider Name and Address Organization Details Last Updated DateTime 05/19/2022 162.56 cm 23.6 kg/m2 71528.31 g 121 mm[Hg] 73 mm[Hg] Ashleydavid Pachecomarvin [facility] 13:14:31 Date Recorded Body height Body mass index (BMI) Body weight Systolic blood pressure Diastolic blood pressure Provider Name and Address Organization Details Last Updated DateTime 2022 162.56 cm 22.5 kg/m2 32270.6 g 158 mm[Hg] 69 mm[Hg] Tara Rios [facility] 16:54:30 Social History Question Answer Notes LastModified by [employer] Details LastModified Time Tobacco Smoking Status Never Smoker Ashley Ashleigh [facility] 05/19/2022 13:16:48 What Is Your Level Of Alcohol Consumption? None Information not available 05/19/2022 Are You Blind Or Do You Have Difficulty Seeing? No Information not available 05/19/2022 Are You Deaf Or Do You Have Serious Difficulty Hearing? No Information not available 05/19/2022 What Type Of Diet Are You Following? REGULAR Information not available 05/19/2022 Sex: Unknown Functional Status Question Answer Note LastModified by [employer] Details LastModified Time Do you have difficulty walking or climbing stairs? No Information not available 05/19/2022 Are you able to walk? YESASSIST Information not available 05/19/2022 Are you able to care for yourself? No Information not available 05/19/2022 Do you have difficulty dressing or bathing? No Information not available 05/19/2022 What is your exercise level? None Information not available 05/19/2022 Mental Status None recorded. Family History Relationship Description Onset Age of this Age Resolved Age Notes LastModified by Organization Details LastModified Time Father No current problems or disability [email or web address] Not available 04/2023 13:16:14 Mother No current problems or disability [email or web address] Not available 04/2023 13:16:14 Medical History Condition Response Allergies (Food, seasonal, environmental ) N Other N Breast Cancer N Drug/Latex Allergies/Reactions N Blood Transfusion N Dermatologic Disorders N Lung Disease N Defects or Inherited Disease N Breast Problem N Gestational Diabetes N Hematologic disorders N Anesthesia Complications N History of STI N Deep Vein Thrombosis N Polycystic ovary syndrome N Anxiety Disorder N Autoimmune disease N Arthritis N Infertility N Polyps N Acid Reflux (GERD) N History of abnormal pap N Cancer N Stroke N Varicosities N Neurologic/Epilepsy N Endometriosis N High Cholesterol Y Headaches N Fibromyalgia N Kidney Disease N Heart Problems N Kidney or Bladder Problems N Thyroid Problems N GI Problems N Eating Disorder N Anemia N Art (IVF or FET) N Psychiatric Illness N Ovarian Cancer N Diabetes N Pulmonary (TB, Asthma) N Hepatitis/Liver Disease N No Past Medical History N Eczema N Urinary Tract Infection N Abuse/Domestic Violence N Asthma N Trauma/Violence N Depression/ depression N Heart Disease Y Pre-Eclampsia N Hypertension Y Osteoporosis N Thrombophilias N Gynecological History Statement/Question Response STIs/STDs N Age of first menstrual cycle 14 HPV Vaccine N Date of Last Pap Smear Sexual Problems? N Current Control Method Menopause Obstetrics History GPAL:G 2 P 0 0 0 2 Type Value Living 2 Total 2 Past Encounters Encounter ID Performer Location Encounter Start Date Encounter Closed Date Diagnosis/Indication Diagnosis SNOMED-CT Code Diagnosis ICD10 Code Diagnosis Note [id number] EHSAN Nj [place] [address] [address] 05/19/2022 12:31:18 05/19/2022 14:28:37 Urinary tract infectious disease 95780531 N39.0 Acute urin lily tract infection 302112336 N39.0 UA today + symptoms suggestive of UTICx sentRx sent for macrobid, twice daily for 7 daysR/B of medication discussed Postmenopa usal bleeding 36943178 N95.0 Discussed postmenopa usal bleeding and need for further evaluation Speculum exam very limited, unable to view cervix - patient is unable to tolerate speculum examPelvic u/s orderedWil l obtain pelvic u/s and f/u with MD for consult to review u/sED precaution s discussed (heavy vaginal bleeding, abdominal pains, fevers, n/v, worsening symptoms, etc) Time spent in visit is a total of 35 mins with at least 50% of visit consisting of counseling and review of plan of care. [id number] Adriane Huerta [place] [address] [address] 05/27/2022 15:49:40 05/30/2022 15:02:02 Postmenopausal bleeding 55713986 N95.0 [id number] Dolores Pizano [place] [address],[place] [address] 2022 15:47:45 2022 18:24:47 [id number] Carlos Maynard MD [place] [address],[place] [address] 2022 16:21:26 06/28/2022 12:39:42 Postmenopausal bleeding 28910971 N95.0 This patient is a 87-year-ol d female with an episode of postmenopa usal bleeding and possible thickened endometriu m on a poor quality ultrasound . The poor quality ultrasound s due to a calcified fibroids. We discussed the ultrasound results today. We discussed the typical evaluation . Discussed the patient's age and has it relates to this situation. We spoke for 40 minutes. More than 50% was counseling . Talked about all the details of diagnoses endometria l carcinoma. The reasoning behind this evaluation . The prudence of this evaluation in an 87-year-ol d. Described hysterosco py D&C, discussed endometria l biopsy in the office. They are going to consider these options and contact us. Patient's daughter may call back to schedule hysterosco py D&C at the hospital. Health Concerns Section Related Observation LastModified by Organization Detai ls LastModified Time None Recorded Concern Status LastModified by Organization Details LastModified Time None Recorded Advance Directives Directive None Recorded Payers Encounter Date Sequence Insurance Name Policy Number Policy Hyman Covered Member ID Hyman Member ID Guarantor Name 05/19/2022 1 [place] [employer] [id number] [employer] 05/19/2022 1 [employer] [id number] Rosario Love [id number] Rosario bolanos 05/27/2022 1 [employer] [id number] Rosario Love [id number] Rosario bolanos 2022 1 [employer] [id number] Rosario Koom [id number] Rosario bolanos 2022 1 [employer] [id number] Rosario Love [id number] Rosario bolanos Notes Date Note Type Note Provider Name and Address Organization Details Recorded Time 05/19/2022 text/html 86yo [id number] is here with her daughter, who is helping to provide some of her health hxPresents for evaluation of postmenopausal bleedingBleeding started 05/16/11, started out with a moderate flow, now having light spottingPostmenopausa l since age 56, this is her first episode of PMBShe has also been having burning with urination and frequent urination for the past 1 weekShe denies any flank pains, abdominal pains, vaginal discharge, odors, or irritationShe is not SAMedical hx : Patient and daughter decline any health hx besides hx of a bowel blockage in October, resolved without surgical intervention. Appears patient also has hx of HTN and high cholesterol based on med list. EHSAN [place] [address], [place], [address], [facility] 05/19/2022 14:08:10 2022 text/html This patient is a 87-year-old female with an episode of postmenopausal bleeding and possible thickened endometrium on a poor quality ultrasound. The poor quality ultrasounds due to a calcified fibroids. We discussed the ultrasound results today. We discussed the typical evaluation. Discussed the patient's age and has it relates to this situation. We spoke for 40 minutes. More than 50% was counseling. Talked about all the details of diagnoses endometrial carcinoma. The reasoning behind this evaluation. The prudence of this evaluation in an 87-year-old. Described hysteroscopy D&C, discussed endometrial biopsy in the office. They are going to consider these options and contact us. Patient's daughter may call back to schedule hysteroscopy D&C at the hospital. Carlos Maynard MD [address], [place], [address], [facility] 2022 21:01:14 OBGyn Episode Ob Episode Information Episode Created Date Number of Fetuses Patient Bloodtype Patient rh Status Prepregnancy Weight lbs Domestic Partner Domestic Partner Phone Father Name Hot Plate Plywood Press Offbearer Status 05/19/19 23 1 CLOSED Fetus Data First Name Last Name Admitted to NICU Weight (g) Sex Living Outcome Pediatric Complications Fetus ID Race Codes Race Delivery Type F [id number] Hill Calculation Initial Hill Date Initial Exam Date Initial Exam Provider Initial Ultrasound Date Last Menstrual Period Date Ultra Sound Weeks Gestation 0 Eighteen To Twenty Week Hill Update Ultra Sound Date Fundal Height At Umbil Quickening Date Ultra Sound Latest Weeks Gestation Final Hill Confirmed By Final Hill Confirmed Date Final Hill Date Ultra Sound Latest Days Gestation 0 0 Menstrual History Last Menstrual Date Menses Monthly On Bcp Conception Prior Menses Frequency Hcg Plus Date Menarche Onset Age Delivery Information Delivery Date Delivery Type Labor Anesthesia Weeks Gestation Incision Type Labor Labor Length Hrs Delivered By Post Complications Tubal Sterilization Discharge Date Comments 9 Discharge Information Feeding Method Contraceptive Method Maternal HG B and HCT Levels Ob Episode Information Episode Created Date Number of Fetuses Patient Bloodtype Patient rh Status Prepregnancy Weight lbs Domestic Partner Domestic Partner Phone Father Name Hot Plate [employer] Press Offbearer Status 05/19/19 23 1 CLOSED Fetus Data First Name Last Name Admitted to NICU Weight (g) Sex Living Outcome Pediatric Complications Fetus ID Race Codes Race Delivery Type M [id number] Hill Calculation Initial Hill Date Initial Exam Date Initial Exam Provider Initial Ultrasound Date Last Menstrual Period Date Ultra Sound Weeks Gestation 0 Eighteen To Twenty Week Hill Update Ultra Sound Date Fundal Height At Umbil Quickening Date Ultra Sound Latest Weeks Gestation Final Hill Confirmed By Final Hill Confirmed Date Final Hill Date Ultra Sound Latest Days Gestation 0 0 Menstrual History Last Menstrual Date Menses Monthly On Bcp Conception Prior Menses Frequency Hcg Plus Date Menarche Onset Age Delivery Information Delivery Date Delivery Type Labor Anesthesia Weeks Gestation Incision Type Labor Labor Length Hrs Delivered By Post Complications Tubal Sterilization Discharge Date Comments 8 Discharge Information Feeding Method Contraceptive Method Maternal HG B and HCT Levels
--- OUTSIDE RECORDS SUMMARY | 2024-07-30 13:37 | XMS_ITS | Clinical Summary ---
Author Organization [facility] Address [address] [place] [address] Care Team Providers Care Flight Kitchen Manager Name Role Phone Dominic Padilla MD Unavailable [phone] Raina Eric MD Unavailable [phone] Glenn Shaw MD Primary Care Provider [phone] Allergies Active Allergy Reactions Criticality Noted Date [...] 05/29/2024 Assessment & Plan (05/29/2024 3:03 PM STEMMING MACHINE OPERATOR): Patient is an 88-year old female with [...] 05/29/2024 Age-related cataract of left eye 02/13/2024 Encounters Date Type Department Care Team Description 05/23/2024 12:15 PM STEMMING MACHINE OPERATOR Office Visit [facility] [address] [place] [address] Samantha Day, CRT 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) (Primary Dx); Moderate dementia with mood disturbance, unspecified dementia type (HCC); Obesity, morbid (HCC); Stage 3b chronic kidney disease (HCC) from Last 3 Months Social History Tobacco Use Types Packs/Day Years Used Date Smoking Tobacco: Never Assessed Comments Unknown Sex and Gender Information Value Date Recorded Sex Assigned at Not on file Legal Sex Female 7:46 PM STEMMING MACHINE OPERATOR Gender Identity Not on file Sexual Orientation Not on file Obstetrics History Last Filed Vital Signs Vital Sign Reading Time Taken Comments Blood Pressure - - Pulse - - Temperature 36.1 C (97 F) 03/21/2024 1:54 PM STEMMING MACHINE OPERATOR Respiratory Rate - - Oxygen Saturation - - Inhaled Oxygen Concentration - - Weight 54 kg (119 lb) 05/23/2024 12:18 PM STEMMING MACHINE OPERATOR Height 97.3 cm (3' 2.31 ) 05/23/2024 12:18 PM CS T Body Mass Index 57.02 05/23/2024 12:18 PM STEMMING MACHINE OPERATOR Plan of Treatment Health Maintenance Due Date Last Done Comments Depression Screening 1936 Fall Risk Assessment 1936 DTaP/Tdap/Td Vaccine (1 - Tdap) 1947 Hepatitis B Screening 1954 Pneumococcal vaccine 65+ (1 of 1 - PCV) 1986 Zoster Vaccine (1 of 2) 1986 Well Visit 65+ 2001 Influenza Vaccine Completed 02/23/2024, 02/13/2020 Insurance [facility] AETNA MEDICARE Care Teams Flight Kitchen Manager Relationship Specialty Start Date End Date Glenn Shaw MD [address] [place] [address] PCP - General Internal Medicine 02/13/24 Dominic Padilla MD Family Medicine 01/17/24 Raina Eric MD [address] [place] [address] DR Candie PERAZA [address] [place] [address] Internal Medicine 06/19/19
--- OUTSIDE RECORDS SUMMARY | 2024-07-30 13:37 | XMS_ITS | Encounter Summary ---
Author Organization [facility] Address [address] [place] [address] Care Team Providers Care Patient Financial Services Coordinator Name Role Phone Glenn Shaw MD Primary Care Provider [phone] Gautam Soto MD Unavailable Encounter Details Date Type Department Care Team (Late Contact Info) Description 09/28/2023 Shopo Message [facility] [place] [address] [facility] [address] [place] [address] Kevin, [facility] Provider Xray results Social History Tobacco Use Types Packs/Day Years [...] Sex Assigned at Female 06/18/2024 9:16 AM DIE CUTTER APPRENTICE Legal Sex Female 8:17 AM DIE CUTTER APPRENTICE Gender Identity Female 07/26/2024 1:24 PM CDT Sexual Orientation Straight 07/26/2024 1: 24 PM CDT documented as of this encounter Plan of Treatment Upcoming Encounters Date Type Department Care Team (Late st Contact Info) Description 08/09/2024 8:20 AM CDT Allied [facility] [place] [address] [place] [address] Glenn Shaw MD [address] [address] 09/13/2024 8:00 AM CDT Office Visit [facility] [place] [address] [place] [address] Shaji Hopper MD [address] [place] [address] 10/18/2024 1:00 PM CDT Appointment [facility] [place] [place] [address] Gautam Soto MD [facility] [address] [place], [place] [address] 07/17/2025 1:45 PM CDT Office Visit [facility] [facility], [facility] [address] [place], [place] [id number] Gautam Soto MD [facility] [address] [place], [place] [address] documented as of this encounter Visit Diagnoses Not on filedocumented in this encounter Additional Health Concerns Assessment Noted Time PHQ-9 Depression Total Score: 3 04/24/20 23 3:32 PM DIE CUTTER APPRENTICE documented as of this encounter Care Teams Patient Financial Services Coordinator Relationship Specialty Start Date End Date Glenn Shaw MD [address] [address] PCP - General INTERNAL MEDICINE 05/23/22 [place] [address] [place] [address] Referring Physician VASCULAR SURGERY 04/15/24 04/15/25 documented as of this encounter
--- OUTSIDE RECORDS SUMMARY | 2024-07-30 13:37 | XMS_ITS | Encounter Summary ---
Author Organization [facility] Address [address] [place] [address] Care Team Providers Care Map Clerk Name Role Phone Glenn Shaw MD Primary Care Provider [phone] Gautam Soto MD Unavailable Encounter Details Date Type Department Care Team (Latest Contact Info) Description 10/20/2023 MyCWorkivat Message Enc [facility] Medical Group Multispecialty Care - [place] [address] [place] [address] [address] [place] [address] Glenn Shaw MD 1188 [facility] 157 [place] [address] I think I know . Allergic Reaction!!! Social History Tobacco Use Types Packs/Day Years [...] Sex Assigned at Female 06/18/2024 9:16 AM CRITICAL CARE TECHNICIAN Legal Sex Female 8:17 AM CRITICAL CARE TECHNICIAN Gender Identity Female 07/26/2024 1:24 PM CDT Sexual Orientation Straight 07/26/2024 1: 24 PM CDT documented as of this encounter Plan of Treatment Upcoming Encounters Date Type Department Care Team ( Contact Info) Description 08/09/2024 8:20 AM CDT Allied Health/Nurse Visit [facility] Medical Group Multispecialty Care - [place] [address] [address] [place] [address] Glenn Shaw MD 1188 [facility] 157 [place] [address] 09/13/2024 8:00 AM CDT Office Visit [facility] Medical [facility] Orthopedic & [facility] - [place] [address] [place] [address] Shaji Hopper MD [address] [place] [address] 10/18/2024 1:00 PM CDT Appointment [facility] [place] [address] Gautam Soto MD Three [place]. [address] [address] 07/17/2025 1:45 PM CDT Office Visit [facility] THREE [facility], [facility] [address] [place], [place] [address] Gautam Soto MD Three [place]. [address] [id number] documented as of this encounter Visit Diagnoses Not on filedocumented in this encounter Additional Health Concerns Assessment Noted Time PHQ-9 Depression Total Score: 3 04/24/20 23 3:32 PM CRITICAL CARE TECHNICIAN documented as of this encounter Care Teams Map Clerk Relationship Specialty [place] [address] [place] [address] PCP - General INTERNAL MEDICINE 05/23/22 [place] [address] [place] [address] Referring Physician VASCULAR SURGERY 04/15/24 04/15/25 documented as of this encounter
--- OUTSIDE RECORDS SUMMARY | 2024-07-30 13:37 | XMS_ITS | Encounter Summary ---
Author Organization [facility] Address [facility] [place] [address] Care Team Providers Care Solar Systems Designer Name Role Phone Glenn Shaw MD Primary Care Provider [phone] Gautam Soto MD Unavailable Encounter Details Date Type Department Care Team (Latest Contact Info) Description 08/18/2023 [employer] Message Enc [facility] Medical Group Multispecialty Care - [place] [address] [place] [address] [address] [place] [address] Glenn Shaw MD 1188 [facility] 157 [place] [address] Antibiotic medication/ Sneha Social History Tobacco Use Types Packs/Day Years [...] Sex Assigned at Female 06/18/2024 9:16 AM AUTO BODY SHOP MANAGER Legal Sex Female 8:17 AM AUTO BODY SHOP MANAGER Gender Identity Female 07/26/2024 1:24 PM CDT Sexual Orientation Straight 07/26/2024 1: 24 PM CDT documented as of this encounter Plan of Treatment Upcoming Encounters Date Type Department Care Team (Late st Contact Info) Description 08/09/2024 8:20 AM CDT Allied Health/Nurse Visit [facility] Medical Group Multispecialty Care - [place] [address] [place] [address] [address] [place] [address] Glenn Shaw MD 1188 [facility] [address] [place] [address] 09/13/2024 8:00 AM CDT Office Visit [facility] Medical Group Orthopedic & Sports Medicine - [place] [address] [place] [address] Shaji Hopper MD [address] [place] [address] 10/18/2024 1:00 PM CDT Appointment [facility] [address] Gautam Soto MD Three [facility]. [facility] [address] [place] [address] 07/17/2025 1:45 PM CDT Office Visit [facility] THREE [facility], [facility] [address] [place], [place] [address] Gautam Soto MD Three [facility]. [facility] [address] [place] [address] documented as of this encounter Visit Diagnoses Not on filedocumented in this encounter Additional Health Concerns Assessment Noted Time PHQ-9 Depression Total Score: 3 04/24/20 23 3:32 PM AUTO BODY SHOP MANAGER documented as of this encounter Care Teams Solar Systems Designer Relationship Specialty Start Date End Date Glenn Shaw MD [address] [address] PCP - General INTERNAL MEDICINE 05/23/22 [place] [address] [place] [address] Referring Physician VASCULAR SURGERY 04/15/24 04/15/25 documented as of this encounter
--- OUTSIDE RECORDS SUMMARY | 2024-07-30 14:09 | XMS_ITS | Referral Summary ---
Author Organization [facility] Address [address] [place] [address] Care Team Providers Care Young Adult Librarian Name Role Phone Dominic Padilla MD Unavailable [phone] Raina Eric MD Unavailable [phone] Glenn Shaw MD Primary Care Provider [phone] Encounters Date Type Department Care Team Description 05/23/2024 12:15 PM NAUMKEAG OPERATOR Office Visit [facility] [address] [place] [address] [address], [place] [address] Samantha Day, [place] Chronic osteomyelitis [...] 05/29/2024 Assessment & Plan (05/29/2024 3:03 PM NAUMKEAG OPERATOR): Patient is an 88-year old female [...] on file Legal Sex Female 7:46 PM NAUMKEAG OPERATOR Gender Identity Not on file Sexual Orientation Not on file Last Filed Vital Signs Vital Sign Reading Time Taken Comments Blood Pressure - - Pulse - - Temperature 36.1 C (97 F) 03/21/2024 1:54 PM NAUMKEAG OPERATOR Respiratory Rate - - Oxygen Saturation - - Inhaled Oxygen Concentration - - Weight 54 kg (119 lb) 05/23/2024 12:18 PM NAUMKEAG OPERATOR Height 97.3 cm (3' 2.31 ) 05/23/2024 12:18 PM CS T Body Mass Index 57.02 05/23/2024 12:18 PM NAUMKEAG OPERATOR Plan of Treatment Not on file Insurance [facility] Address: [facility] [id number] [place] [id number] [employer] [facility] Address: [facility] [id number] [place] [phone] Care Teams Young Adult Librarian Relationship Specialty Start Date End Date Glenn Shaw MD [address] [place], [place] [id number] PCP - General Internal Medicine 02/13/24 Dominic Padilla MD Family Medicine 01/17/24 Raina Eric MD [address] [place] [address] DR Schreiber [address] [address] Internal Medicine 06/19/19
--- OUTSIDE RECORDS SUMMARY | 2024-07-30 14:09 | XMS_ITS | Encounter Summary ---
Author Organization [facility] Address [facility] [place] [address] Care Team Providers Care Wax Molder Name Role Phone Glenn Shaw MD Primary Care Provider [phone] Gautam Soto MD Unavailable Encounter Details Date Type Department Care Team (Late Contact Info) Description 05/10/2024 Prep for Procedure [facility], [facility] [address] [place], [place] [id number] Gautam Soto MD [facility]. [facility] [address] [place], [place] [id number] Social History Tobacco Use Types Packs/Day Years [...] Sex Assigned at Female 06/18/2024 9:16 AM BOILING TUB OPERATOR Legal Sex Female 8:17 AM BOILING TUB OPERATOR Gender Identity Female 07/26/2024 1:24 PM CDT Sexual Orientation Straight 07/26/2024 1: 24 PM CDT documented as of this encounter Plan of Treatment Upcoming Encounters Date Type Department Care Team (Late st Contact Info) Description 08/09/2024 8:20 AM CDT Allied Health/Nurse Visit [facility] Medical [facility] Multispecialty Care - [place] [address] [place] [address] [address] [place] [address] Glenn Shaw MD 1188 [facility] [address] [place] [address] 09/13/2024 8:00 AM CDT Office Visit [facility] Medical [facility] Orthopedic & Sports Medicine - [place] [address] [place] [address] Shaji Hopper MD [address] [place] [address] 10/18/2024 1:00 PM CDT Appointment [facility] [address] Gautam Soto MD Three [facility]. [facility] [address] [place] [address] 07/17/2025 1:45 PM CDT Office Visit [facility] THREE [facility], [facility] [address] [place], [place] [address] Gautam Soto MD Three [facility]. [facility] [address] [place] [address] documented as of this encounter Visit Diagnoses Not on filedocumented in this encounter Additional Health Concerns Assessment Noted Time PHQ-9 Depression Total Score: 3 04/24/20 23 3:32 PM BOILING TUB OPERATOR documented as of this encounter Care Teams Wax Molder Relationship Specialty Start Date End Date Glenn Shaw MD 1188 [facility] [address] [place] [address] PCP - General INTERNAL MEDICINE 05/23/22 [place] [address] [place] [address] Referring Physician VASCULAR SURGERY 04/15/24 04/15/25 documented as of this encounter
--- OUTSIDE RECORDS SUMMARY | 2024-07-30 14:09 | XMS_ITS | Continuity of Care Document ---
Author Organization [facility] Address [address] [place] [address] [place] [address] Phone Care Team Providers Care Copier Operator Name Role Phone Dominic Padilla MD Unavailable [...] Diagnoses Date Provider Providers Copied on Encounter [facility], [address] [place], [id number], [place] tel:[phone] [facility] No Information 3 Randy Alfaro. [address], [address] , [place]. tel:[phone] OFFICE/OUTPA TIENT VISIT, [facility], [address], [place], [place], [address], [place] tel:[phone] [facility] HTN (chief complaint) kcl (chief complaint) HLP (chief complaint) GERD1 (chief complaint) anemia1 (chief complaint) weight loss1 (chief complaint) Mixed hyperlipidemiaEssen tial (primary) hypertensionHypokal emiaAnemiaAbnormal weight lossGERD w/o esophagitis 3 Padilla Dominic. [address], [address], [place], [place], [address] , [place]. tel:[phone] OFFICE/OUTPA TIENT VISIT, [facility], [address], [place], [place], [address], [place] tel:[phone] [facility] HLP (chief complaint) kcl (chief complaint) dizziness1 (chief complaint) GERD1 (chief complaint) GERD w/o esophagitisHypokale miaEssential (primary) hypertensionMixed hyperlipidemia Jan- 2 Randy Dominic. [address], [address], [place], [place], [id number] , [place]. tel:[phone] PREV VISIT, EST, 65 & OVER [facility], [address], [place], [place], [address], [place] tel:[phone] [facility] dizziness1 (chief complaint) OAB (chief complaint) SBO (chief complaint) renal (chief complaint) weight loss1 (chief complaint) GERD w/o esophagitisOrthosta tic hypotensionOveracti ve bladderHypokalemiaE ssential (primary) hypertensionIntesti nal obstructionRenal diseaseEncounter for general adult medical exam w abnormal findings 2 Randy Alfaro. [address], [address], [place], [place], [address] , [place]. tel:[phone] OFFICE/OUTPA TIENT VISIT, [facility], [address], [place], [place], [address], [place] tel:[phone] [facility] HTN (chief complaint) renal (chief complaint) weight loss1 (chief complaint) Overactive bladderEssential (primary) hypertensionHypokal emiaOrthostatic hypotensionRenal disease 1 Randy Hopkins [address], [address], [place], [place], [address] , [place]. tel:[phone] OFFICE/OUTPA TIENT VISIT, [facility], [address], [place], [address], [place] tel:[phone] [facility] HTN (chief complaint) HLP (chief complaint) OAB (chief complaint) arm pain1 (chief complaint) mole (chief complaint) Nevus, non-neoplasticEssen tial (primary) hypertensionOveract ace bladderHyperlipidem iaPain in unspecified upper armHypokalemia 1 Randy Hopkins [address], [place], [place], [address] , [place]. tel:[phone] PREV VISIT, EST, 65 & OVER [facility], [address], [place], [place], [address], [place] tel:[phone] [facility] Medicine physical (chief complaint) Encounter for general adult medical exam w abnormal findingsVenous insufficiencyEssent ial (primary) hypertensionHyperli pidemiaOveractive bladder Aug- 1 Randy Hopkins [address], [place], [place], [address] , [place]. tel: [phone] OFFICE/OUTPA TIENT VISIT, [facility], [address], [place], [place], [address], [place] tel:[phone] [facility] HTN (chief complaint) OAB (chief complaint) HLP (chief complaint) edema1 (chief complaint) HyperlipidemiaOvera ctive bladderEssential (primary) hypertensionEdema Sep-0 0 Randy Hopkins [address], [address], [place], [place], [address] , [place]. tel:[phone] OFFICE/OUTPA TIENT VISIT, [facility], [address] [place], [place], [address], tel:[phone] [facility] HTN (chief complaint) low KCL (chief complaint) low D (chief complaint) OAB (chief complaint) HLP (chief complaint) murmur1 (chief complaint) Cardiac murmurOveractive bladderEssential (primary) hypertensionEdemaHy pokalemiaVitamin D deficiency, unspecifiedHyperlip idemiaRenal disease 0 4-202 0 Randy Alfaro. [address] [place], [place], [address] , . tel:[phone] PREV VISIT, NEW, 65 & OVER [facility], [address] [place], [place], [address], tel:[phone] [facility] Medicine physical (chief complaint) Encounter for general adult medical exam w abnormal findingsEssential (primary) hypertensionOveract ace bladderEdemaCardiac murmur 0-202 0 Randy Alfaro. [address] [place], [place], [address] , [place]. [phone] Family History Family Member Type Diagnosis Age [...] ordered Referral Referred To: Brandon Das [address], [id number] Ordered: Referrals: Allopathic & Osteopathic Physicians : [...] satiety, nausea, vomiting, change of bowel, etc. HLP Pt has HLP. Pt t akes lipitor. Pt denies any myalgia kcl Pt has chronic l ow kcl. Pt takes kcl orally Pt denies any chest pain or palpitation dizziness1 Pt stopped irbes erica/hctz and her bp is around 130/60 at home. Pt no longer feels dizziness. GERD1 Pt has chronic G ERd. Pt is on pepcid now and she is doing ok Pt denies any GERD or abd pain or nausea, vomiting SBO Pt recently went to hospital for [...] normal appetite Pt denies any abd pain renal Her renal functi on and GFR was stable and normal in hospital with IV fluid. Pt was mildly anemic toward discharge weight loss1 Pt has been losi ng weight due to GERD and HH. Pt denies any early satiety, GI bleeding, etc. Pt has slightly loss of appetite due doing better with protonix dizziness1 Pt has intermitt ent dizziness and orthostasis [...] taking it. Pt denies any urinary symptoms HTN Pt has HTN. Pt t akes [...] headache Pt denies any sob or syncope. renal Pt has stage III renal disease Pt has normal UO. Pt denies any flank pain. Pt denies any urinary symptoms Pt did have mild urinary urgency and frequency in the past and she has been taking oxybutynin for a while . weight loss1 Pt has been losi ng weight for the past several months Pt denies any appetite loss, nausea, vomiting, early satiety, abd pain. Daughter states that she has been working on diet and weight control. HTN Pt has HTN. Pt t akes irbesartan/hctz and her bp is stable at home. He takes kcl daily HLP Pt has HLP Pt ta kes lipitor. Pt denies any myalgia. OAB Pt has OAB. Pt t akes oxybutynin and her symptoms are well controlled. Pt denies any dysuria, urinary urgency and frequency arm pain1 Pt has been sitt ing [...] Pt denies any axillary nodule or pain mole Pt notices mold on both breast and right armpit area for 3 months. Pt denies any bleeding physical Pt needs annual physical. pt has [...] any redness or warmth of both leg HTN Pt has HTN. Pt t akes irbesartan/hctz and KCL. Her bp is around 130/70. Pt denies any chest pain or headache. OAB Pt has OAB. Pt d oing ok with oxybutynin. Pt denies any dysuria, urinary frequency and urgency HLP Pt has HLP .Pt t akes lipitor Pt denies any myalgia edema1 Pt has lower ext remity edema. Pt has not had any edema since off Norvasc. Pt denies any sob low KCL Pt has low KCL. Pt used to take kcl. Pt denies any chest pain or palpitation low D Pt has low D pt has not done bone density yet. Pt denies any fx OAB Pt has OAB Pt de nies any UTI symptoms Pt needs oxybutynin refilled. HLP Pt has HLP Pt ta kes lipitor pt denies any myalgia. Her lipid profile is ok murmur1 Pt has cardiac m urmur ,Pt denies any chest pain or sob Pt had benign cardiac echo HTN Patient has been taking irbesartan hydrochlorothiazide [...]
--- OUTSIDE RECORDS SUMMARY | 2024-07-30 14:09 | XMS_ITS | Clinical Summary ---
Author Organization [facility] Address [address] [place] [address] Care Team Providers Care Paper Machine Backtender Name Role Phone Glenn Shaw MD Primary Care Provider Gautam Soto MD Unavailable Allergies Active Allergy [...] Description 07/26/2024 1:00 PM CDT Office Visit [facility] Multispecialty Care - [address] [place] [address] Glenn Shaw MD Physical (Referral to a different specialist for arm pain) 07/26/2024 - 07/26/2024 11:59 PM CDT Hospital [facility] [address] Glenn Shaw MD Discharge Disposition: Home or Self Care (Routine Discharge) 07/26/2024 MyChart Message Enc [facility] [place] [address] [facility] [address] [place] [address] Glenn Shaw MD Sending amlodipine to help with your blood pressure 07/26/2024 Travel 07/18/2024 3:15 PM CDT Office Visit [facility] [address] [address] Gautam Soto MD Peripheral Vascular Disease 07/18/2024 Orders Only [facility] [place] [address] [place] [address] Gautam Soto MD 07/18/2024 [facility]phone [facility] [place] [address] [address] [place] [address] Glenn Shaw MD Referral 07/18/2024 Travel 06/18/2024 9:21 AM NEEDLE FELT MAKING MACHINE OPERATOR - 06/18/2024 2:16 PM NEEDLE FELT MAKING MACHINE OPERATOR Hospital Encounter [facility] [place] [address] Gautam Soto MD Discharge Disposition: Home or Self Care (Routine Discharge) 06/18/2024 9:20 AM NEEDLE FELT MAKING MACHINE OPERATOR Hospital Encounter [facility] [place] [address] Gautam Soto MD Discharge Disposition: Home or Self Care (Routine Discharge) 06/18/2024 Travel 06/18/2024 Orders Only [facility] [place] [address] Gautam Soto MD 05/22/2024 Telephone [place] [address] [address] [place] [address] Glenn Shwa MD Lab Results 05/20/2024 [facility] Only [facility] [place] [address] [address] [place] [address] Glenn Shaw MD 05/10/2024 Prep for Procedure [facility] THREE [facility], [place] [address] [place] [address] Gautam Soto MD 05/10/2024 Orders Only [facility] THREE [facility], [facility] [address] [place] [address] Gautam Soto MD 05/09/2024 1:30 PM NEEDLE FELT MAKING MACHINE OPERATOR Office Visit [facility] THREE [facility], [address] [address] Gautam Soto MD Peripheral Vascular Disease 05/09/2024 [...] Sex Assigned at Female 06/18/2024 9:16 AM NEEDLE FELT MAKING MACHINE OPERATOR Legal Sex Female 8:17 AM NEEDLE FELT MAKING MACHINE OPERATOR Gender Identity Female 07/26/2024 1:24 PM [...] 08/09/2024 8:20 AM CDT Allied Health/Nurse Visit [facility] Multispecialty Care - [place] [address] [facility] [address] [place] [address] Glenn Shaw MD [address] [facility] [address] [place] [address] 09/13/2024 8:00 AM CDT Office Visit [facility] - [place] [address] [place] [address] Shaji Hopper MD [address] [place] [address] 10/18/2024 1:00 PM CDT Appointment [facility] [place] [address] Gautam Soto MD Three [facility]. [facility] [address] [place] [address] 07/17/2025 1:45 PM CDT Office Visit [facility] THREE [facility], [address] [place] [address] Gautam Soto MD Three [facility]. [facility] [address] [place], [place] [address] Health Maintenance Due Date Last Done Comments DTaP, Tdap and Td Vaccines ( 1 - Tdap) 1955 Zoster Vaccines (1 of 2) 1986 RSV Immunization or 60+ Years (1 - 1-dose 75+ series) 2011 COVID-19 Vaccine ( - 2023-2 5 season) 2024 ASCVD LDL 07/23/2024 07/24/2023, 06/03/2022 Influenza Adult Completed 02/23/2024, 02/13/2020, 02/13/2020 Pneumococcal Vaccine: 65+ Years Completed 04/29/2024 PHQ-2 (Physician [place]) Completed 07/26/2024 Meningococcal B Vaccine Aged Out [...] PROTHROMBIN TIME, VENOUS Routine 06/18/2024 9:38 AM NEEDLE FELT MAKING MACHINE OPERATOR Peripheral vascular disease CBC W/DIFF AUTOMATED Routine 06/18/2024 9:38 AM NEEDLE FELT MAKING MACHINE OPERATOR Peripheral vascular disease BASIC METABOLIC PANEL Routine 06/18/2024 9:38 AM NEEDLE FELT MAKING MACHINE OPERATOR Peripheral vascular disease BASIC METABOLIC PANEL Routine 05/23/2024 1:58 PM NEEDLE FELT MAKING MACHINE OPERATOR Abnormal laboratory test result BASIC METABOLIC PANEL Routine 05/20/2024 12:08 PM NEEDLE FELT MAKING MACHINE OPERATOR LIPID PANEL Routine 07/24/2023 12:49 PM CDT Annual physical exam General medical exam from Last 3 Months or Most Recently Relevant to Health Maintenance Results * URINE BACTERIA CULTURE (07/26/2024 4:43 PM CDT) SPEC DESCRIPTION URINE CLEAN CATCH 07/26/2024 4:43 PM CDT [facility] SPECIAL REQUESTS NO SPECIAL REQUEST 07/26/2024 4:43 PM CDT [facility] CULTURE RESULT FEW CONTAMINANTS 07/07 10:27 AM CDT [facility] URINE SPECIMEN OBTAINED BY CLEAN CATCH PROCEDURE / Unknown 07/26/2024 4:43 PM CDT 07/26/2024 8:55 PM CDT Glenn Shaw MD MICROBIOLOGY - GENERAL ORDERABLE S Final Result Performing Organization Address City/[facility]/ZIP Co de Phone Number [facility] [address] [place] [address], [id number] * URINALYSIS AUTO DIP (07/26/2024) COLOR (U) YELLOW YELLOW [address], [place] TRANSPARENCY CLEAR CLEAR MG[address], [place] GLUCOSE (U) NEGATIVE NEGATIVE MG/DL MG-[address], [place] BILIRUBIN (U) NEGATIVE NEGATIVE MG-[address], [place] KETONES MG/DL (U) NEGATIVE NEGATIVE MG/DL MG-[address], [place] SPECIFIC GRAVITY (U) 1.005 1.001 - 1.035 MG-[address], [place] BLOOD (U) NEGATIVE NEGATIVE MG-[address], [place] U PH 6.0 5.0 - 9.0 MG-[address], [place] PROTEIN (U) NEGATIVE NEGATIVE mg/dL MG-[address], [place] UROBILINOGEN 0.2 0.2 - 1.0 EU/dL = mg/dL MG-[address], [place] NITRITES NEGATIVE NEGATIVE MG/DL MG-[address], [place] LEUKOCYTES (U) NEGATIVE NEGATIVE MG-[address], [place] URINE SPECIMEN OBTAINED BY CLEAN CATCH PROCEDURE / Unknown 07/26/2024 us Glenn Shaw MD URINE ORDERABLES Final Result [address], [place] [address] [place] [address], * PROTIME/INR, VENOUS (06/18/2024 9:38 AM NEEDLE FELT MAKING MACHINE OPERATOR) PROTIME 11.8 10.2 - 12.9 SEC 06/18/2024 10:06 AM [facility] INR 1.0 06/18/2024 10:06 AM [facility] Comment: Recommended INR Therapeutic Goals: 2.0-3.0 Routine Therapy 2.5-3.5 Mechanical Prosthetic Valves (High Risk) 06/18/2024 9:38 AM NEEDLE FELT MAKING MACHINE OPERATOR Gautam Soto MD LABORATORY Final Result [facility] [address] [place] [address], [place] [phone] * (ABNORMAL) BASIC METABOLIC PANEL (06/18/2024 9:38 AM NEEDLE FELT MAKING MACHINE OPERATOR) Only the most recent of3 resultswithin the time period is included. GLUCOSE 75 70 - 99 MG/DL 06/18/2024 10:16 AM [facility] BUN 15 7 - 18 MG/DL 06/18/2024 10:16 AM [facility] CREATININE S/P/B 0.96 0.55 - 1.02 MG/DL 06/18/2024 10:16 AM [facility] SODIUM S/P/B 139 136 - 145 MMOL/L 06/18/2024 10:16 AM [facility] POTASSIUM S/P/B 3.8 3.5 - 5.1 MMOL/L 06/18/2024 10:16 AM [facility] CHLORIDE S/P/B 107 97 - 115 MMOL/L 06/18/2024 10:16 AM [facility] CO2 26.7 21 - 32 MMOL/L 06/18/2024 10:16 AM [facility] CALCIUM S/P/B 10.4(H) 8.5 - 10.1 MG/DL 06/18/2024 10:16 AM [facility] ANION GAP 5.3 2 - 10 MMOL/L 06/18/2024 10:16 AM [facility] BUN CREATININE RATIO 15.6 6 - 26 06/18/2024 10:16 AM [facility] GFR ESTIMATE 57(L) >90 ML/MIN/1.7 3 M2 06/18/2024 10:16 AM [facility] Comment: NOTE: eGFR is not calculated for patients <18 years of age or gender unknown. This is an estimated GFR calculation using the new CKD EPI creatinine equation without race and so does not require a correction factor for race. This estimated GFR should not be used for calculating drug doses. 06/18/2024 9:38 AM NEEDLE FELT MAKING MACHINE OPERATOR Gautam Soto MD LABORATORY Final Result [facility] [address] [place] [address], [place] [phone] * (ABNORMAL) CBC W/DIFF AUTOMATED (06/18/2024 9:38 AM NEEDLE FELT MAKING MACHINE OPERATOR) WBC 4.61 4.5 - 11.0 x10'3/uL 06/18/2024 9:49 AM [facility] RBC 4.85 4.20 - 5.40 x10'6/uL 06/18/2024 9:49 AM [facility] HGB 13.7 12.0 - 16.0 G/DL 06/18/2024 9:49 AM [facility] HCT 43.4 38.0 - 48.0 % 06/18/2024 9:49 AM [facility] MCV 89.5 81.0 - 99.0 FL 06/18/2024 9:49 AM [facility] MCH 28.2 27.0 - 31.0 PG 06/18/2024 9:49 AM [facility] MCHC 31.6(L) 32.0 - 36.0 G/DL 06/18/2024 9:49 AM [facility] RDW 14.0 11.5 - 14.5 % 06/18/2024 9:49 AM [facility] PLT 229 130 - 400 x10'3/uL 06/18/2024 9:49 AM [facility] MPV 9.3 9.3 - 12.2 FL 06/18/2024 9:49 AM [facility] DIFFERENTIAL TYPE AUTOMATED DIFFERENTIAL 06/18/2024 9:49 AM [facility] NEUTROPHILS % 57.6 % 06/18/2024 9:49 AM [facility] LYMPHOCYTES % 33.2 % 06/18/2024 9:49 AM [facility] MONOCYTES % 7.6 % 06/18/2024 9:49 AM [facility] EOSINOPHILS 0.9 % 06/18/2024 9:49 AM [facility] BASOPHILS 0.7 % 06/18/2024 9:49 AM [facility] IMMATURE GRANS % 0.0 % 06/18/19 9:49 AM [facility] ABS. NEUTROPHILS 2.66 1.80 - 7.70 x10'3/uL 06/18/2024 9:49 AM [facility] ABS. LYMPHOCYTES 1.53 1.00 - 4.80 x10'3/uL 06/18/2024 9:49 AM [facility] ABS. MONOCYTES 0.35 0.24 - 0.86 x10'3/uL 06/18/2024 9:49 AM NEEDLE FELT MAKING MACHINE OPERATOR [facility] ABS. EOSINOPHILS 0.04 0.04 - 0.36 x10'3/uL 06/18/2024 9:49 AM NEEDLE FELT MAKING MACHINE OPERATOR [facility] ABS. BASOPHILS 0.03 0.01 - 0.08 x10'3/uL 06/18/2024 9:49 AM NEEDLE FELT MAKING MACHINE OPERATOR [facility] ABS. IMMATURE GRANULOCYTES 0.00 0.00 - 0.49 x10'3/uL 06/18/2024 9:49 AM NEEDLE FELT MAKING MACHINE OPERATOR [facility] 06/18/2024 9:38 AM NEEDLE FELT MAKING MACHINE OPERATOR Gautam Soto MD LABORATORY Final Result [facility] [address] [place] [address], * LIPID PANEL (07/24/2023 12:49 PM CDT) CHOLESTEROL 191 <200 MG/DL 07/25/2023 10:49 AM CDT -[facility] TRIGLYCERIDES 54 <150 MG/DL 07/25/2023 10:49 AM CDT -[facility] HDL 81 >40 MG/DL 07/25/2023 10:49 AM CDT [facility] LDL-C 99 <100 MG/DL 07/25/2023 10:49 AM CDT [facility] VLDL CALCULATION 11 5 - 28 MG/DL 07/25/2023 10:49 AM CDT [facility] CHOL/HDL RATIO 2.4 0.0 - 4.0 07/25/2023 10:49 AM CDT [facility] LDL/HDL 1.2 0.41 - 2.13 07/25/2023 10:49 AM CDT [facility] NON HDL CHOLESTEROL 110 <140 MG/DL 07/25/2023 10:49 AM CDT [facility] 07/24/2023 12:4 9 PM CDT Glenn Shaw MD LABORATORY Final Result -[facility] [address] [place] [address], from Last 3 Months or Most Recently Relevant to Health Maintenance Insurance MEDICARE PART A AETNA Advance Directives Documents on File Type Date Recorded Patient Linoleum Tile Floor Layer Expl anation Advance Directives and Livin g Will 06/19/2024 1:44 PM Care Teams Paper Machine Backtender Relationship Specialty Start Date End Date Glenn Shaw MD [address] [facility] [address] [place] [address] PCP - General INTERNAL MEDICINE 05/23/22 [place] [address] [place] [address] Referring Physician VASCULAR SURGERY 04/15/24 04/15/25
--- OUTSIDE RECORDS SUMMARY | 2024-07-30 14:09 | XMS_ITS | Encounter Summary ---
Author Organization [facility] Address [address] [place] [address] Care Team Providers Care Sales Development Representative Name Role Phone Glenn Shaw MD Primary Care Provider [phone] Gautam Soto MD Unavailable Encounter Details Date Type Department Care Team (Latest Contact Info) Description 10/20/[address] [facility] Multispecialty Care - [place] [address] [place] [address] [address] [place] [address] Glenn Shaw MD 1188 [facility] 157 [place] [address] I think I know . [...] Sex Assigned at Female 06/18/2024 9:16 AM WOOD SASH AND FRAME CARPENTER Legal Sex Female 8:17 AM WOOD SASH AND FRAME CARPENTER Gender Identity Female 07/26/2024 1:24 PM CDT Sexual Orientation Straight 07/26/2024 1: 24 PM CDT documented as of this encounter Plan of Treatment Upcoming Encounters Date Type Department Care Team ( Contact Info) Description 08/09/2024 8:20 AM CDT Allied Health/Nurse Visit [facility] Multispecialty Care - [place] [address] [address] [place] [address] Glenn Shaw MD 1188 [facility] [address] [place] [address] 09/13/2024 8:00 AM CDT Office Visit [facility] - [place] [address] [place] [address] Shaji Hopper MD [address] [place] [address] 10/18/2024 1:00 PM CDT Appointment [facility] [place] [address] Gautam Soto MD Three [facility]. [address] [address] 07/17/2025 1:45 PM CDT Office Visit [facility] THREE [facility], [email or web address] [address] [place], [place] [address] Gautam Soto MD Three [facility]. [address] [address] documented as of this encounter Visit Diagnoses Not on filedocumented in this encounter Additional Health Concerns Assessment Noted Time PHQ-9 Depression Total Score: 3 04/24/20 23 3:32 PM WOOD SASH AND FRAME CARPENTER documented as of this encounter Care Teams Sales Development Representative Relationship Specialty [place] [address] [place] [address] PCP - General INTERNAL MEDICINE 05/23/22 [place] [address] [place] [address] Referring Physician VASCULAR SURGERY 04/15/24 04/15/25 documented as of this encounter
--- OUTSIDE RECORDS SUMMARY | 2024-07-30 14:09 | XMS_ITS | Encounter Summary ---
Author Organization [facility] Address [facility] [place] [address] Care Team Providers Care Ivory Polisher Name Role Phone Glenn Shaw MD Primary Care Provider [phone] Gautam Soto MD Unavailable Encounter Details Date Type Department Care Team (Latest Contact Info) Description 08/18/2023 youcalct Message Enc [facility] Multispecialty Care - [place] [address] [place] [address] [address] [place] [address] Glenn Shaw MD 1188 [facility] 157 [place] [address] Antibiotic medication/ Sneha Social History [...] Sex Assigned at Female 06/18/2024 9:16 AM MANAGER HEART Legal Sex Female 8:17 AM MANAGER HEART Gender Identity Female 07/26/2024 1:24 PM CDT Sexual Orientation Straight 07/26/2024 1: 24 PM CDT documented as of this encounter Plan of Treatment Upcoming Encounters Date Type Department Care Team (Late st Contact Info) Description 08/09/2024 8:20 AM CDT Allied Health/Nurse Visit [facility] Multispecialty Care - [place] [address] [place] [address] [address] [place] [address] Glenn Shaw MD 1188 [facility] [address] [place] [address] 09/13/2024 8:00 AM CDT Office Visit [facility] - [place] [address] [place] [address] Shaji Hopper MD [address] [place] [address] 10/18/2024 1:00 PM CDT Appointment [facility] [place] [place] [address] Gautam Soto MD Three [facility]. [facility] [address] [place] [address] 07/17/2025 1:45 PM CDT Office Visit [facility] THREE [facility], [facility] [address] [place], [place] [address] Gautam Soto MD Three [facility]. [facility] [address] [place] [address] documented as of this encounter Visit Diagnoses Not on filedocumented in this encounter Additional Health Concerns Assessment Noted Time PHQ-9 Depression Total Score: 3 04/24/20 23 3:32 PM MANAGER HEART documented as of this encounter Care Teams Ivory Polisher Relationship Specialty Start Date End Date Glenn Shaw MD [address] [address] PCP - General INTERNAL MEDICINE 05/23/22 [place] [address] [place] [address] Referring Physician VASCULAR SURGERY 04/15/24 04/15/25 documented as of this encounter
--- OUTSIDE RECORDS SUMMARY | 2024-07-30 14:09 | XMS_ITS | Clinical Summary ---
Author Organization [facility] Address [address] [place] [address] Care Team Providers Care Crystalizer Name Role Phone Dominic Padilla MD Unavailable [phone] Raina Eric MD Unavailable Glenn Shaw MD Primary Care Provider [phone] Allergies Active Allergy Reactions Criticality Noted Date [...] 05/29/2024 Assessment & Plan (05/29/2024 3:03 PM CONCEPT ARTIST): Patient is an 88-year old female with [...] Department Care Team Description 05/23/2024 12:15 PM CONCEPT ARTIST Office Visit [facility] [address] [place] [phone] Samantha Day, PAINT ROLLER COVER MACHINE SETTER 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 [...] on file Legal Sex Female 7:46 PM CONCEPT ARTIST Gender Identity Not on file Sexual Orientation Not on file Obstetrics History Last Filed Vital Signs Vital Sign Reading Time Taken Comments Blood Pressure - - Pulse - - Temperature 36.1 C (97 F) 03/21/2024 1:54 PM CONCEPT ARTIST Respiratory Rate - - Oxygen Saturation - - Inhaled Oxygen Concentration - - Weight 54 kg (119 lb) 05/23/2024 12:18 PM CONCEPT ARTIST Height 97.3 cm (3' 2.31 ) 05/23/2024 12:18 PM CS T Body Mass Index 57.02 05/23/2024 12:18 PM CONCEPT ARTIST Plan of Treatment Health Maintenance Due Date Last Done Comments Depression Screening 1936 Fall Risk Assessment 1936 DTaP/Tdap/Td Vaccine (1 - Tdap) 1947 Hepatitis B Screening 1954 Pneumococcal vaccine 65+ (1 of 1 - PCV) 1986 Zoster Vaccine (1 of 2) 1986 Well Visit 65+ 2001 Influenza Vaccine Completed 02/23/2024, 02/13/2020 [facility] AETNA MEDICARE Care Teams Crystalizer Relationship Specialty Start Date End Date Glenn Shaw MD [address] [place] [address] PCP - General Internal Medicine 02/13/24 Dominic Padilla MD Family Medicine 01/17/24 Raina Eric MD [address] [place] [address] DR Candie PERAZA [address] [place] [address] Internal Medicine 06/19/19
--- OUTSIDE RECORDS SUMMARY | 2024-07-30 14:09 | XMS_ITS | Encounter Summary ---
Author Organization [facility] Address [address] [place] [address] Care Team Providers Care Ip Technology Transactions Attorney Name Role Phone Glenn Shaw MD Primary Care Provider [phone] Gautam Soto MD Unavailable Reason for Visit * Reason Onset Date Comments Appointment Request 07/26/2024 Encounter Details Date Type Department Care Team (Latest Contact Info) Description 07/26/2024 IBUonline Message Enc [facility] Multispecialty Care - [place] [address] [place] [address] [address] [place] [address] Glenn Shaw MD 1188 [facility] [address] [place], [place] [id number] Sending amlodipine to help with your blood [...] Sex Assigned at Female 06/18/2024 9:16 AM DINING ROOM ATTENDANT [place] Legal Sex Female 8:17 AM DINING ROOM ATTENDANT [place] Gender Identity Female 07/26/2024 1:24 PM CDT [...] is to go to the ER and clam picker Amlodipine rx * Janae Mendes MA - 07/30/2024 10:02 AM CDT Pts daughter had questions about amlodipine I informed her it is a Calcium channel winnie for Highblood pressure. The daughter v/u. Pt is scheduled for August 09 due to availability documented in this encounter Plan of Treatment Upcoming Encounters Date Type Department Care Team (Late st Contact Info) Description 08/09/2024 8:20 AM CDT Allied Health/Nurse Visit [facility] Multispecialty Care - [place] [address] [address] [place] [address] Glenn Shaw MD 1188 [facility] [address] [place] [address] 09/13/2024 8:00 AM CDT Office Visit [facility] Orthopedic & Sports Medicine - [place] [address] [place], [place] [address] Shaji Hopper MD [address] [place] [address] 10/18/2024 1:00 PM CDT Appointment [facility] [place] [address] Gautam Soto MD Three [facility]. [address] [place], [place] [address] 07/17/2025 1:45 PM CDT Office Visit [facility] THREE [facility], [facility] [address] [place], [place] [id number] Gautam Soto MD Three [facility]. [address] [place] [address] documented as of this encounter Visit Diagnoses Not on filedocumented in this encounter Additional Health Concerns Assessment Noted Time PHQ-9 Depression Total Score: 0 07/27/19 25 7:11 PM CDT documented as of this encounter Care Teams Ip Technology Transactions Attorney Relationship Specialty Start Date End Date Glenn Shaw MD 1188 [facility] [address] [place] [address] PCP - General INTERNAL MEDICINE 05/23/22 [place] [address] [place] [address] Referring Physician VASCULAR SURGERY 04/15/24 04/15/25 documented as of this encounter
--- OUTSIDE RECORDS SUMMARY | 2024-07-30 14:09 | XMS_ITS | Encounter Summary ---
Author Organization [facility] Address [address] [place] [address] Care Team Providers Care Transfill Technician Name Role Phone Glenn Shaw MD Primary Care Provider [phone] Gautam Soto MD Unavailable Encounter Details Date Type Department Care Team (Late Contact Info) Description 09/28/2023 [email or web address] Message [facility] [address] [facility] [address] [place] [address] Kevin, [facility] Provider Xray results Social History Tobacco Use [...] Sex Assigned at Female 06/18/2024 9:16 AM IN HOME BABY SITTER Legal Sex Female 8:17 AM IN HOME BABY SITTER Gender Identity Female 07/26/2024 1:24 PM CDT Sexual Orientation Straight 07/26/2024 1: 24 PM CDT documented as of this encounter Plan of Treatment Upcoming Encounters Date Type Department Care Team (Late st Contact Info) Description 08/09/2024 8:20 AM CDT [facility] [place] [address] [place] [address] Glenn Shaw MD [address] [address] 09/13/2024 8:00 AM CDT Office Visit [facility] [place] [address] [place] [address] Shaji Hopper MD [address] [place] [address] 10/18/2024 1:00 PM CDT Appointment [facility] [place] [address] Gautam Soto MD [facility]. [facility] [address] [place], [place] [address] 07/17/2025 1:45 PM CDT Office Visit [facility] [facility], [facility] [address] [place], [place] [id number] Gautam Soto MD [facility]. [facility] [address] [place], [place] [address] documented as of this encounter Visit Diagnoses Not on filedocumented in this encounter Additional Health Concerns Assessment Noted Time PHQ-9 Depression Total Score: 3 04/24/20 23 3:32 PM IN HOME BABY SITTER documented as of this encounter Care Teams Transfill Technician Relationship Specialty Start Date End Date Glenn Shaw MD [address] [address] PCP - General INTERNAL MEDICINE 05/23/22 [place] [address] [place] [address] Referring Physician VASCULAR SURGERY 04/15/24 04/15/25 documented as of this encounter
--- NOTE | 2024-07-30 15:49 | ECG_ITS ---
Test Date: 2024-07-30 15:55:03 Measurements Intervals [place] Rate: 84 P: 24 PA: 208 QRS: 17 QRSD: 73 T: 66 QT: 338 QTc: 400 Interpretive Statements SINUS RHYTHM WITH FREQUENT SUPRAVENTRICULAR PREMATURE COMPLEXES VOLTAGE CRITERIA FOR LVH [MEETS CRITERIA IN ONE OF: R(aVL), S(V1), R(V5), R(V5/V6)+S(V1)] NONSPECIFIC T-WAVE ABNORMALITY Compared to ECG 07/30/2024 11:32:59 No significant changes Electronically Signed On 07-30-2024 16:49:51 CDT by Brian Hunt M.D.
[2024-07-30 16:22] LABS: Troponin I < 0.012 ng/mL (0.000-0.034)
[2024-07-30] MEDS: SODIUM CHLORIDE 0.9% IV 1,000 ML 999 ML IV CONT (17:15)
--- NOTE | 2024-07-30 17:29 | PC.NURSE ---
Dr. Raymundo made aware of pt's BP. verbal order to give 1L bolus of NS. VORB.
== END 2024-07-30 18:00 | disposition home or self-care (01) ==
PROVIDERS: Student in an Organized Health Care Education/Training Program; Emergency Provider Emergency Medicine; PCP Internal Medicine
DX: I10 Essential (primary) hypertension (principal); F03.90 Unspecified dementia, unspecified severity, without behavioral disturbance, psychotic disturbance, mood disturbance, and anxiety; E78.00 Pure hypercholesterolemia, unspecified; M19.019 Primary osteoarthritis, unspecified shoulder; Z96.652 Presence of left artificial knee joint; Z87.891 Personal history of nicotine dependence; R94.31 Abnormal electrocardiogram [ECG] [EKG]; R90.82 White matter disease, unspecified; I49.1 Atrial premature depolarization
CPT/HCPCS: 36415; 70450; 71046; 80053; 83690; 84484; 85025; 85610; 85730; 93005; 96361; 96374; 99284; A9270; J0360; J7030